=== PATIENT | female | born 1940 | race Caucasian/White ===

== ENCOUNTER → 2020-09-24 14:23 | Outpatient (BNVA) | payer MEDICARE, MEDICAID, SELFPAY | PROVIDERS: Family Provider Nurse Practitioner Family; PCP Nurse Practitioner Family; Visit Provider Nurse Practitioner Family | DX: N39.0 Urinary tract infection, site not specified (principal) | CPT/HCPCS: 80053; 81003; 87077; 87086; 87184 ==

== ENCOUNTER 2020-10-04 13:37 | Outpatient (CLI) | payer MEDICARE, MEDICAID, SELFPAY ==
--- NOTE | 2020-10-08 08:56 | ONC FU_ITS ---
Dr. Amaral Patient Follow-Up Note Patient: JOSSY JACOBSEN Unit #: [id number]: 1940 Dicatated By: Jimenez Amaral M.D.Date of Visit:Oct 04, 2020 Onc Med Follow-up/Prog Note Chief Complaint: Hereditary hemochromatosis. History of Present Illness: This is 79 year-old woman with hereditary hemochromatosis. Her hemochromatosis was initially diagnosed back in the . At that time she began on a phlebotomy program. She was initially seen here by Dr. Hamm on 06/20/2015. 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 Her ferritin at that time was 343 ng/mL with transferrin saturation 48%. Her CT abdomen/pelvis showed significant peripheral vascular disease, but the liver appeared normal. She began weekly phlebotomies with ferritin level subsequently decreasing to 89 ng/mL. She was last seen by Dr. Hamm in February 2016. Ferritin at that time was 109.1 ng/mL with transferrin saturation 44.1%. She was recommended to continue phlebotomies monthly, but thereafter she was lost to follow-up. Her other medical illnesses include hypertension, hyperlipidemia, type II diabetes, peripheral arterial disease, obesity, GERD, and degenerative arthritis. She has chronic lower extremity lymphedema and she has a history of nephrolithiasis. She also has anxiety/depression. Her surgeries include bilateral total knee arthroplasty and right ankle fusion. She had bilateral cataract excisions and glaucoma surgery in 2016. Other surgeries include partial hysterectomy, cholecystectomy, removal of benign lesion from the left breast, and she also has undergone lithotripsy on 2 occasions. She is a nonsmoker. INTERIM HISTORY: She returned for follow-up on 08/11/2018. Her serum iron level at that time was 100 mcg/dL with transferrin saturation 38%. The ferritin level was 64 ng/mL. As of her follow-up visit on 11/10/2018, her serum ferritin was up just slightly to 71.0 ng/mL. Her transferrin saturation, though, had increased to 59.5%, and at that point I did recommend a phlebotomy. On 12/10/2018 she was admitted to the hospital with acute GI bleeding. Her hemoglobin stabilized at 7.3 g, and she did not require transfusion. She had evaluation with EGD and colonoscopy, with no source of GI blood loss identified. I had seen her for a follow-up visit on 03/30/2019. At that point she was still mildly anemic, and I did have her start a multivitamin with iron. As of her follow-up visit in September 2019 her transferrin saturation and ferritin were in target range, and she was recommended to stop the iron supplement and to just continue on observation/expectant management. She is seen for a scheduled visit. She says she has been feeling okay, I guess . She has had some stress/depression, has 1 daughter of heart related issues and another daughter has been put into some type of supervised care for psychiatric issues. She has had a series of urinary tract infections. Her activity remains very limited to her lower extremity weakness. ECOG score is 3. Appetite is variable, but adequate. She has not had fever. She sometimes has sweating at night. She has no shortness of breath, cough, or chest pain. She is taking Nexium for her acid reflux. She reports having loose stools with Metformin. She has frequent urination and occasionally dysuria. She has arthritis pain all over. At times it is pretty intense. She does not complain of headache. She has neuropathy in her feet and to a lesser extent in her hands. Medications: Acetaminophen PM Ex St 1 Tablet (of 500-25 mg) Oral at bedtime, Aspirin 1 Tablet (of 81 mg) Oral daily, Benadryl 1 Tablet (of 25 mg) Oral PRN, Cholecalciferol 1 Tablet (of 10 mcg ) Oral daily, Esomeprazole Magnesium 1 Capsule (of 20 mg) Capsule Delayed Release Oral daily, HumaLOG 10 Units (of 100 Units/mL) Subcutaneous t.i.d., Lantus 30 Units (of 100 Units/mL) Subcutaneous b.i.d., Lipitor 1 Tablet (of 20 mg) Oral daily, Lisinopril 1 (10 mg) Tablet Oral b.i.d., MetFORMIN HCl 1 Tablet (of 500 mg) Oral daily, Nitrofurantoin Macrocrystal 1 Capsule (of 100 mg) Oral t.i.d. for 10 days Allergies: IV CONTRAST DYE Review of Systems: Constitutional - She has very limited activity due to her leg weakness. Appetite is variable, but adequate. She has not had fever. She does have some sweating. ECOG score is 3, ENMT - She has some allergy related sinus symptoms. No mouth sores. No sore throat or difficulty swallowing, Hematologic/Lymphatic - No abnormal bruising or bleeding, Respiratory - No shortness of breath. No cough. No pleuritic pain or hemoptysis, Cardiovascular - No angina pain. No palpitations, Gastrointestinal - No nausea or vomiting. Her acid reflux is managed with Nexium. She has loose stools with Metformin. No blood in the stool or black stools, Genitourinary (F) - She indicates she has had a series of urinary tract infections. She has frequent urination and she occasionally has dysuria. No hematuria.No urgency or incontinence, Musculoskeletal - She has arthritis pain all over. At times it is pretty intense, Integumentary - No skin rash, Neurologic - No headache or dizziness. She has neuropathy in her feet and to a lesser extent in her hands, Psychiatric - She has anxiety/depression. She has difficulty sleeping, as she wakes up at least every 2 hours. Vital Signs: Performed on Oct 04, 2020 14:00 Height - 59.00 in Weight - 222.2 lbs (HIGH) BSA - 1.93 sq.m BMI - 44.88 (HIGH) Temperature - 97.9 F (LOW) Pulse - 56 /min (LOW) Respiration - 22 /min BP - 151/59 mm(hg) (HIGH) O2 Sat - 97 % Pain - 7 Physical Examination: Constitutional - She appears somewhat weak generally, Eyes - Sclerae nonicteric. Conjunctivae clear, ENMT - No lesions noted in the oral cavity, Hematologic/Lymphatic - No cervical, clavicular, or axillary adenopathy, Respiratory - Lungs are clear with good air movement bilaterally, Cardiovascular - Heart rhythm is regular. There is a II/ systolic murmur. There is no gallop or rub noted, Abdomen - Distended. Liver and spleen are not enlarged. There is no abdominal mass or ascites noted and there is no inguinal adenopathy, Extremities - Mild lower extremity edema, Integumentary - She has scattered actinic lesions, Neurologic - No focal neurologic deficits noted. Lab/Imaging: Test performed on Sep 03, 2020 15:08 Hemoglobin A1C 6.7 % Test performed on Sep 03, 2020 15:05 WBC 7.8 10^9/L RBC 4.65 10^12/L HGB 14.7 g/dL HCT 46.1 % MCV 99.1 fl MCH 31.6 pg MCHC 31.9 g/dL RDW 13.1 % Platelet Count 166 10^9/L Test performed on Sep 03, 2020 14:53 Ferritin 33 ng/mL Glucose 132 mg/dL BUN 29 mg/dL Creatinine 1.25 mg/dL Cr Clearance (Est) 59.97 mL/min Sodium 138 mmol/L Potassium 4.7 mmol/L Chloride 106 mmol/L CO2 24.1 mmol/L Calcium 9.1 mg/dL Protein, Total 7.1 g/dL Albumin 3.5 g/dL Bilirubin, Total 0.9 mg/dL Alkaline Phosphatase 57 IU/L AST (SGOT) 19 IU/L ALT (SGPT) 23 IU/L Neutrophils (Gran) 4.41 10^9/L Lymphocytes 2.22 10^9/L Monocytes 0.62 10^9/L Eosinophils 0.43 10^9/L Basophils 0.07 10^9/L Impression: 1. Patient with hereditary hemochromatosis, initially diagnosed in the . 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 2. She has been managed with phlebotomies. She was temporarily lost to follow-up subsequent to her visit with Dr. Hamm in February 2016. 3. She is chronically debilitated and almost completely bed/wheelchair bound. Her other medical illnesses include: 4. Hypertension. 5. Hyperlipidemia. 6. Type II diabetes. 7. Peripheral arterial disease. 8. Obesity. 9. Chronic lower extremity lymphedema. 10. GERD. 11. Degenerative arthritis. 12. She has a history of nephrolithiasis. 13. Anxiety/depression. In November 2018 she was admitted to the hospital with acute GI bleeding. Her hemoglobin stabilized at 7.3 g, and she did not require transfusion. As of her follow-up visit on 03/30/2019 she was still slightly anemic with hypochromic/microcytic red cell indices, consistent with iron deficiency, and I did have her start a multiple vitamin with iron. As of her follow-up visit in September 2019 her transferrin saturation and ferritin were in target range, and I did have her stop the iron supplement. She has since then been followed on observation/expectant management. At this point her ferritin remains in target range, and her overall clinical status appears stable. Plan: I will continue to follow her on observation/expectant management as long as her ferritin level has not increased significantly. I will schedule her to have follow-up laboratory studies with [facility] at 3-month intervals. I will just see her again in 1 year. Signed By: Jimenez Amaral M.D. <<Signature on File>>
== END 2020-10-04 13:38 | disposition home or self-care (01) ==
LOC: ONCMED 13:41
PROVIDERS: PCP Nurse Practitioner Family; Visit Provider Internal Medicine Medical Oncology
DX: E83.110 Hereditary hemochromatosis (principal); I10 Essential (primary) hypertension; E78.5 Hyperlipidemia, unspecified; E11.51 Type 2 diabetes mellitus with diabetic peripheral angiopathy without gangrene; E66.9 Obesity, unspecified; Z68.41 Body mass index [BMI] 40.0-44.9, adult; I89.0 Lymphedema, not elsewhere classified; K21.9 Gastro-esophageal reflux disease without esophagitis; M19.90 Unspecified osteoarthritis, unspecified site; F41.8 Other specified anxiety disorders; Z87.442 Personal history of urinary calculi
CPT/HCPCS: 99214

== ENCOUNTER → 2020-10-08 13:52 | Outpatient (BNVA) | payer MEDICARE, MEDICAID, SELFPAY | PROVIDERS: PCP Nurse Practitioner Family; Visit Provider Nurse Practitioner Family | DX: N39.0 Urinary tract infection, site not specified (principal) | CPT/HCPCS: 81003 ==

== ENCOUNTER 2020-12-07 12:37 | Outpatient (CLI) | payer MEDICARE, MEDICAID, SELFPAY ==
--- NOTE | 2020-12-07 12:57 | XR_ITS ---
WS: [id number] ABDOMEN SERIES Supine and upright views of the abdomen CLINICAL INFORMATION: LOOKING FOR OBSTRUCTION COMPARISON: None. FINDINGS: Cholecystectomy clips. Lumbar scoliosis convex left. Moderate spondylitic changes lumbar sp ine. Vascular calcification. No free air on the upright view. Normal bowel gas pattern. Scattered stool in the colon. No bowel dis tention. No evidence of high-grade obstruction. XR/XR abdomen min 2V [id number] IMPRESSION: 1. No evidence of high-grade small or large bowel obstruction. 2. No free air or fluid levels on the upright view. 3. Lumbar scoliosis convex left.
== END 2020-12-07 12:38 | disposition home or self-care (01) ==
PROVIDERS: PCP Nurse Practitioner Family; Visit Provider Nurse Practitioner Family
DX: R10.30 Lower abdominal pain, unspecified (principal)
CPT/HCPCS: 74019

== ENCOUNTER → 2021-02-06 13:34 | Outpatient (BNVA) | payer MEDICARE, MEDICAID, SELFPAY | PROVIDERS: PCP Nurse Practitioner Family; Visit Provider Nurse Practitioner Family | DX: N39.0 Urinary tract infection, site not specified (principal) | CPT/HCPCS: 81003; 87077; 87086; 87184 ==

== ENCOUNTER 2021-03-06 06:00 | Outpatient (RCR) | payer MEDICARE, MEDICAID, SELFPAY | END 2021-03-29 23:59 | disposition home or self-care (01) | LOC: SOT 06:00 | PROVIDERS: PCP Nurse Practitioner Family; Referring Provider Nurse Practitioner Family; Visit Provider Nurse Practitioner Family | DX: M19.042 Primary osteoarthritis, left hand (principal) | CPT/HCPCS: 97018; 97110; 97167; L3923 ==

== ENCOUNTER 2021-03-27 06:00 | Outpatient (RCR) | payer MEDICARE, MEDICAID, SELFPAY | END 2021-03-29 23:59 | disposition home or self-care (01) | LOC: SPT 06:00 | PROVIDERS: PCP Nurse Practitioner Family; Referring Provider Nurse Practitioner Family; Visit Provider Nurse Practitioner Family | DX: M19.012 Primary osteoarthritis, left shoulder (principal) | CPT/HCPCS: 97110; 97162 ==

== ENCOUNTER 2021-03-30 06:00 | Outpatient (RCR) | payer MEDICARE, MEDICAID, SELFPAY | END 2021-04-03 23:00 | disposition home or self-care (01) | LOC: SOT 06:00 | PROVIDERS: PCP Nurse Practitioner Family; Referring Provider Nurse Practitioner Family; Visit Provider Nurse Practitioner Family | DX: M19.042 Primary osteoarthritis, left hand (principal) | CPT/HCPCS: 97110 ==

== ENCOUNTER 2021-03-30 06:00 | Outpatient (RCR) | payer MEDICARE, MEDICAID, SELFPAY | END 2021-04-29 23:59 | disposition home or self-care (01) | LOC: SPT 06:00 | PROVIDERS: PCP Nurse Practitioner Family; Referring Provider Nurse Practitioner Family; Visit Provider Nurse Practitioner Family | DX: M19.012 Primary osteoarthritis, left shoulder (principal) | CPT/HCPCS: 97110 ==

== ENCOUNTER 2021-05-14 17:14 | Emergency (ER) | payer MEDICARE, MEDICAID, SELFPAY ==
--- NOTE | 2021-05-14 17:15 | XRR_ITS ---
PROCEDURE INFORMATION: Exam: XR Left Foot Exam date and time: 05/14/2021 5:15 PM Age: 80 years old Clinical indication: Injury or trauma; Other: Dropped board on foot; Blunt trauma and swelling (edema); Injury date: 05/11/2021; Patient HX: Left foot injury/pain/swelling/bruising, HX diabeties TECHNIQUE: Imaging protocol: XR Left foot. Views: 3 or more views. COMPARISON: No relevant prior studies available. FINDINGS: Bones/joints: Diffuse demineralization of the bones. Degenerative changes of the ankle and intertarsal joints. Large calcaneus spur. Soft tissues: Diffuse soft tissue calcifications in the lower leg. Soft tissue swelling in the dorsal foot. Vasculature: Arterial calcifications. XR/XR foot LT min 3V* [id number] IMPRESSION: 1. No fracture identified.
[2021-05-14 18:23] VITALS: BP 173/107; PULSE 76; RESP 20; TEMP 36.8; O2SAT 94; BMI 43.0
--- NOTE | 2021-05-14 18:59 | W.ED.LOWEXIN ---
HPI - Extremity Injury (Lower) General: Chief Complaint: Extremity Injury, Lower Stated Complaint: LEFT FOOT INJURY Time Seen by Provider: 05/14/21 18:57 Source: patient Mode of arrival: wheelchair Limitations: no limitations History of Present Illness: HPI Narrative: Patient is a 80-year-old female who presents to ED today for evaluation of a crush injury to her left foot. Patient tells me 3 days ago she dropped a wooden shelf on the dorsal aspect of her left foot. No breaks in the skin. She has noticed significant bruising since the event. Tetanus is UTD. Patient uses motorized wheelchair so doesn't ambulate much anyway-she has been able to fulfill ADLs with foot injury. complaint: foot injury Onset (ago): hour(s) Injury: Left: foot Type of Injury: blunt Place: home Severity: moderate Relieving factors: immobilization Exacerbating factors: weight bearing, movement and palpation Context: direct blow Associated symptoms: Reports inability to bear weight Other symptoms: none Review of Systems Musc: Reports: extremity pain (L foot); Denies: extremity swelling, joint pain, joint swelling, joint redness or joint warmth Skin/Breast: Reports: other (bruising to L foot) Neuro: Denies: numbness in extremities or sensory changes Physical Exam Const: COMMON NORMALS: no acute distress, patient oriented x3, no limitations and alert NUTRITIONAL APPEARANCE: obese ORIENTATION/CONSCIOUSNESS: Yes awake, Yes oriented to person, Yes oriented to place and Yes oriented to time Extremity: GENERAL: Yes normal exam except as noted OTHER: bilateral LE chronic lymphedema; L foot with ecchymosis throughout dorsal and medial aspect with bruising extending into toes; cap refill brisk; palpable DP/PT pulses; normal temp when compared to R; no redness/swelling/signs to suggest cellulitis; there is a small abrasion to dorsal aspect Neuro: COMMON NORMALS: patient oriented x3, moves all extremities, no focal motor deficits and no sensory deficits noted SENSORIUM/ORIENTATION: Yes alert, Yes oriented to person, Yes oriented to place and Yes oriented to time Skin: NARRATIVE SKIN EXAM: see extremity assessment for pertinent skin findings Course Vital Signs: Vital signs: Vital Signs Temperature 98.3 F 05/14/21 18:23 Pulse Rate 78 05/14/21 19:11 Respiratory Rate 20 H 05/14/21 18:23 Blood Pressure 173/107 05/14/21 18:23 Pulse Oximetry 94 05/14/21 18:23 MDM - Extremity Injury (Lower) MDM Narrative: Medical decision making narrative: Patient with crush injury/contusion to left foot. XR negative. No signs of infection. Extremity NV intact. Recommend ice/elevation and follow up with PCP in 1-2 weeks if symptoms persist. Imaging Data^: XR L foot: Radiologist's impression: [address] [address] XRay Report Signed Patient: Mary Arias Unit #: [id number] : 1940 Age/Sex: 80 / F ADM Date: 05/14/21 Loc: ER Room/Bed: Attending Dr: Ordering Provider/Ordering MD: Alicia Guillen Date of Service: 05/14/21 Procedure(s): XR foot LT min 3V* [id number] Accession Number(s): [id number] Report Number: [id number] PROCEDURE INFORMATION: Exam: XR Left Foot Exam date and time: 05/14/2021 5:15 PM Age: 80 years old Clinical indication: Injury or trauma; Other: Dropped board on foot; Blunt trauma and swelling (edema); Injury date: 05/11/2021; Patient HX: Left foot injury/pain/swelling/bruising, HX diabeties TECHNIQUE: Imaging protocol: XR Left foot. Views: 3 or more views. COMPARISON: No relevant prior studies available. FINDINGS: Bones/joints: Diffuse demineralization of the bones. Degenerative changes of the ankle and intertarsal joints. Large calcaneus spur. Soft tissues: Diffuse soft tissue calcifications in the lower leg. Soft tissue swelling in the dorsal foot. Vasculature: Arterial calcifications. XR/XR foot LT min 3V* [id number] IMPRESSION: 1. No fracture identified. Dictated By: Jimmy Taylor Signed By: Jimmy Taylor Signed Date/Time: 05/14/211828 DD/ 27 Discharge Plan Discharge Patient Disposition: Home Clinical Impression: Contusion of left foot Qualifiers: Encounter type: initial encounter Qualified Code(s): S90.32XA - Contusion of left foot, initial encounter Condition: Stable Discharge Orders: Discharge ED (Routine); Ordered 05/14/21 Ordered By: Alicia Guillen Patient Instructions: Contusion, RICE Therapy (ED) Activity Restrictions/Additional Instructions: As we discussed please elevate extremity. You may also apply ice for 15 -20 mins every other hour. Follow up with primary care in 1-2 weeks if pain persists. Coding Level of Care Code ED Getter Welder for Rk Gonzalez
[2021-05-14 19:11] VITALS: PULSE 78
[2021-05-14 19:40] VITALS: RESP 18
== END 2021-05-14 19:41 | disposition home or self-care (01) ==
PROVIDERS: Emergency Provider Physician Assistant
DX: S90.32XA Contusion of left foot, initial encounter (principal); W20.8XXA Other cause of strike by thrown, projected or falling object, initial encounter
CPT/HCPCS: 73630; 99281

== ENCOUNTER 2021-09-30 13:37 | Outpatient (CLI) | payer MEDICARE, MEDICAID, SELFPAY ==
--- NOTE | 2021-09-30 13:30 | USCV_ITS ---
Mary Magaña Age: 80 Gender: F : 1940 Exam Date: 09/30/2021 13:56 Ordering Phys: Cole Tenorio M.D ([email or web address]) Technologist: Nikita Briones [place]am [place] [facility] [place]ication: MURMUR BP: 130 / 80 HR: 62 Rhythm: Sinus Technical Quality: Adequate MEASUREMENTS (Male / Female) Normal Values 2D ECHO LV Diastolic Diameter PLAX 3.3 cm 4.2 - 5.9 / 3.9 - 5.3 cm LV Systolic Diameter PLAX 2.2 cm IVS Diastolic Thickness 1.4 cm 0.6 - 1.0 / 0.6 - 0.9 cm IVS Systolic Thickness 1.3 cm LVPW Diastolic Thickness 1.2 cm 0.6 - 1.0 / 0.6 - 0.9 cm LVPW Systolic Thickness 1.4 cm LVOT Diameter 2.0 cm LV Ejection Fraction 2D Teich 62.1 % LV Ejection Fraction MOD 2C 58.0 % LV Ejection Fraction 2C AL 57.6 % LA Diameter 3.3 cm LA Width 3.3 cm LA Height 5.9 cm RA Width 4.5 cm RA Height 3.5 cm M-MODE LV Diastolic Diameter MM 4.7 cm 4.2 - 5.9 / 3.9 - 5.3 cm LV Systolic Diameter MM 2.5 cm LV Ejection Fraction MM Teich 76.9 % IVS Diastolic Thickness MM 0.8 cm 0.6 - 1.0 / 0.6 - 0.9 cm IVS Systolic Thickness MM 1.4 cm LVPW Diastolic Thickness MM 1.1 cm 0.6 - 1.0 / 0.6 - 0.9 cm LVPW Systolic Thickness MM 1.7 cm RV Diastolic Diameter MM 1.7 cm DOPPLER AV Peak Velocity 269.7 cm/s LVOT Peak Velocity 110.0 cm/s AV Area Cont Eq vti 1.3 cm squared AV Area Cont Eq pk 1.2 cm squared MV Area PHT 2.9 cm squared Mitral E to A Ratio 0.7 MV E' Velocity 65.0 cm/s TR Peak Velocity 236.0 cm/s TR Peak Gradient 22.3 mmHg TV Peak E Velocity 88.0 cm/s Right Atrial Pressure 3.0 mmHg Pulmonary Artery Systolic Pressu 25.3 mmHg FINDINGS Left Ventricle Normal left ventricular size. LV systolic function is normal with EF of 55 to 60%. No regional wall motion abnormalities. Grade 1 diastolic dysfunction Right Ventricle The right ventricle is normal in size and function. Right Atrium The right atrium is normal in size. Left Atrium The left atrium is normal in size. Mitral Valve Moderate to severe mitral annular calcification without significant stenosis or prolapse. There is mild mitral regurgitation. Aortic Valve Aortic valve is moderately thickened and calcified. Mild aortic stenosis is noted with aortic valve area of 1.27 cm squared and mean gradient across the valve of 14 mmHg. There is mild aortic regurgitation. Tricuspid Valve Structurally normal tricuspid valve without significant stenosis. Mild tricuspid regurgitation. Normal RVSP Pulmonic Valve Not well-visualized Pericardium Normal pericardium without effusion. Aorta Normal ascending aorta dimension. CONCLUSIONS This is technically limited quality echocardiogram because of poor ultrasonic windows. LV systolic function is normal with EF of 55 to 60%. Grade 1 diastolic dysfunction is seen. Mild mitral regurgitation is present. Aortic valve is moderately thickened and calcified. Mild aortic stenosis is present with aortic valve area of 1.27 cm squared and mean gradient of 14 mmHg. Mild aortic regurgitation. Mild tricuspid regurgitation is seen. Compared to prior echocardiogram from 05/29/2017, patient now has mild aortic regurgitation, otherwise unchanged Cole Tenorio MD (Electronically Signed) Final Date: 05 October 2021 20:32 S
== END 2021-09-30 13:38 | disposition home or self-care (01) ==
PROVIDERS: PCP Nurse Practitioner Family; Visit Provider Internal Medicine
DX: R01.1 Cardiac murmur, unspecified (principal); I34.0 Nonrheumatic mitral (valve) insufficiency; I35.0 Nonrheumatic aortic (valve) stenosis
CPT/HCPCS: 93306

== ENCOUNTER 2021-10-07 15:00 | Outpatient (CLI) | payer MEDICARE, MEDICAID, SELFPAY ==
[2021-10-07 16:34] LABS: Basophils # 0.1 10^3/uL (0.0-0.1); Basophils % 0.8 %; Eosinophils # 0.3 10^3/uL (0.0-0.8); Eosinophils % 3.1 %; Hematocrit 43.6 % (37.0-47.0); Lymphocytes # 2.2 10^3/uL (0.8-4.8); Lymphocytes % 23.5 %; Mean Corpuscular HGB Conc 32.1 g/dL (30.0-36.0); Mean Corpuscular Hemoglobin 32.1 pg (28.0-34.0); Mean Platelet Volume 12.5 fL (7.4-10.4); Monocytes # 0.8 10^3/uL (0.2-0.9); Neutrophils # 5.98 10^3/uL (1.8-7.7); Neutrophils % 64.2 %; Nucleated Red Blood Cells % 0 %; Platelet Count 179 10^3/cmm (130-400); Red Blood Count 4.36 10^6/uL (4.1-5.3); Red Cell Distribution Width 12.6 % (12.1-15.1); White Blood Count 9.3 10^3/uL (4.0-10.0)
[2021-10-07 16:54] LABS: Alanine Aminotransferase 16 U/L (0-33); Albumin Level 4.1 g/dL (3.5-5.2); Alkaline Phosphatase 73 IU/L (35-105); Aspartate Amino Transferase 15 U/L (0-32); Blood Urea Nitrogen 31 mg/dL (8-23); Calcium 9.4 mg/dL (8.5-10.5); Carbon Dioxide 20 mmol/L (22-29); Chloride 102 mmol/L (98-107); Ferritin 148 ng/mL (15-150); Globulin 2.7 g/dL (1.3-4.6); Glucose 200 mg/dL (65-115); Iron 143 ug/dL (37-145); Osmolality Calculated 296 mOsm/kg (285-295); Percent Saturation 61.6 % (20-50); Sodium 137 mmol/L (136-145); Total Bilirubin 0.8 mg/dL (0.15-1.2); Total Iron Binding Capacity 232 mcg/dl; Total Protein 6.8 g/dL (6.6-8.7); Unsaturated Iron Binding 89 ug/dL (112-347)
[2021-10-07 17:08] LABS: Anion Gap 20.6 (5-19); Potassium 5.6 mmol/L (3.5-5.1)
[2021-10-07 17:28] LABS: Estmated Average Glucose 157; Hemoglobin A1C 7.1 % (4.0-6.0)
== END 2021-10-07 15:01 | disposition home or self-care (01) ==
LOC: ONCMED 15:08
PROVIDERS: PCP Nurse Practitioner Family; Visit Provider Internal Medicine Medical Oncology
DX: E83.110 Hereditary hemochromatosis (principal); D50.0 Iron deficiency anemia secondary to blood loss (chronic); I10 Essential (primary) hypertension; E78.5 Hyperlipidemia, unspecified; E11.59 Type 2 diabetes mellitus with other circulatory complications; I73.9 Peripheral vascular disease, unspecified; E66.9 Obesity, unspecified; I89.0 Lymphedema, not elsewhere classified; K21.9 Gastro-esophageal reflux disease without esophagitis; M19.90 Unspecified osteoarthritis, unspecified site; H40.9 Unspecified glaucoma; F41.9 Anxiety disorder, unspecified; F32.9 Major depressive disorder, single episode, unspecified; Z79.899 Other long term (current) drug therapy
CPT/HCPCS: 36415; 80053; 82728; 83036; 83540; 83550; 85025; 90471; 90686; 99214

== ENCOUNTER 2022-01-08 10:43 | Outpatient (CLI) | payer MEDICARE, MEDICAID, SELFPAY | END 2022-01-08 10:44 | disposition home or self-care (01) | PROVIDERS: PCP Nurse Practitioner Family; Visit Provider Internal Medicine Medical Oncology | DX: E83.119 Hemochromatosis, unspecified (principal) | CPT/HCPCS: 99195 ==

== ENCOUNTER 2022-05-28 11:59 | Oncology outpatient (recurring) (ONCR) | payer MEDICARE, MEDICAID, SELFPAY ==
[2022-05-28 13:03] LABS: Basophils # 0.1 10^3/uL (0.0-0.1); Basophils % 0.7 %; Eosinophils # 0.4 10^3/uL (0.0-0.8); Eosinophils % 5.2 %; Hematocrit 39.9 % (37.0-47.0); Hemoglobin 12.8 g/dL (11.5-15.3); Lymphocytes # 2.1 10^3/uL (0.8-4.8); Lymphocytes % 29.1 %; Mean Corpuscular HGB Conc 32.1 g/dL (30.0-36.0); Mean Corpuscular Hemoglobin 31.8 pg (28.0-34.0); Mean Corpuscular Volume 99.3 fl (81-99); Mean Platelet Volume 13.1 fL (7.4-10.4); Monocytes # 0.6 10^3/uL (0.2-0.9); Monocytes % 8.8 %; Neutrophils # 3.94 10^3/uL (1.8-7.7); Neutrophils % 55.6 %; Nucleated Red Blood Cells % 0 %; Platelet Count 152 10^3/cmm (130-400); Red Blood Count 4.02 10^6/uL (4.1-5.3); Red Cell Distribution Width 12.8 % (12.1-15.1); White Blood Count 7.1 10^3/uL (4.0-10.0)
[2022-05-28 13:20] LABS: Alanine Aminotransferase 17 U/L (0-33); Albumin Level 3.9 g/dL (3.5-5.2); Alkaline Phosphatase 72 IU/L (35-105); Anion Gap 13.6 (5-19); Aspartate Amino Transferase 17 U/L (0-32); Blood Urea Nitrogen 31 mg/dL (8-23); Carbon Dioxide 23 mmol/L (22-29); Chloride 106 mmol/L (98-107); Globulin 2.6 g/dL (1.3-4.6); Glucose 159 mg/dL (65-115); Osmolality Calculated 296 mOsm/kg (285-295); Potassium 4.6 mmol/L (3.5-5.1); Slide Review Slide Review Perform; Sodium 138 mmol/L (136-145); Total Bilirubin 0.5 mg/dL (0.15-1.2); Total Protein 6.5 g/dL (6.6-8.7)
[2022-05-28 13:42] LABS: Ferritin 131 ng/mL (15-150); Iron 103 ug/dL (37-145); Percent Saturation 58.5 % (20-50); Total Iron Binding Capacity 176 mcg/dl; Unsaturated Iron Binding 73 ug/dL (112-347)
== END 2022-05-29 23:59 | disposition home or self-care (01) ==
PROVIDERS: PCP Nurse Practitioner Family; Referring Provider Family Medicine; Visit Provider Internal Medicine Medical Oncology
DX: E83.110 Hereditary hemochromatosis (principal)
CPT/HCPCS: 80053; 82728; 83540; 83550; 85025; 99195; 99214

== ENCOUNTER 2022-10-05 17:58 | Emergency (ER) | payer MEDICARE, MEDICAID, SELFPAY ==
[2022-10-05 18:05] VITALS: BP 137/107; PULSE 71; RESP 15; TEMP 36.9; O2SAT 95; BMI 44.5
--- NOTE | 2022-10-05 18:41 | CTR_ITS ---
PROCEDURE INFORMATION: Exam: CT Abdomen And Pelvis Without Contrast Exam date and time: 10/05/2022 7:49 PM Age: 81 years old Clinical indication: Abdominal pain; Additional info: R back/flank pain TECHNIQUE: Imaging protocol: Computed tomography of the abdomen and pelvis without contrast. Radiation optimization: All CT scans at this facility use at least one of these dose optimization techniques: automated exposure control; mA and/or kV adjustment per patient size (includes targeted exams where dose is matched to clinical indication); or iterative reconstruction. COMPARISON: CT abdomen pelvis wo con [id number] 12/10/2018 1:25 PM RADIATION DOSE METRICS: Total DLP (mGy-cm): 934.37 FINDINGS: Heart: Cardiomegaly. Diaphragm: Small hiatal hernia. Liver: Normal. No mass. Gallbladder and bile ducts: Cholecystectomy. Pancreas: Normal. No ductal dilation. Spleen: Normal. No splenomegaly. Adrenal glands: Normal. No mass. Kidneys and ureters: Possible minimal right hydronephrosis and hydroureter without obstructing lesion may reflect sequelae of a recently passed calyceal stone. Stomach and bowel: Diverticulosis without diverticulitis. Appendix: No evidence of appendicitis. Intraperitoneal space: Unremarkable. No free air. No significant fluid collection. Vasculature: Unremarkable. No abdominal aortic aneurysm. Lymph nodes: Unremarkable. No enlarged lymph nodes. Urinary bladder: Unremarkable as visualized. Reproductive: Unremarkable as visualized. Bones/joints: Unremarkable. No acute fracture. Soft tissues: Unremarkable. CT/CT kidney stone [id number] IMPRESSION: 1. Possible minimal right hydronephrosis and hydroureter without obstructing lesion may reflect sequelae of a recently passed calyceal stone. 2. Cardiomegaly. 3. Cholecystectomy. 4. Diverticulosis without diverticulitis. 5. Small hiatal hernia.
[2022-10-05 18:50] LABS: Basophils # 0.1 10^3/uL (0.0-0.1); Basophils % 0.8 %; Eosinophils # 0.3 10^3/uL (0.0-0.8); Eosinophils % 4.3 %; Hematocrit 43.4 % (37.0-47.0); Hemoglobin 13.6 g/dL (11.5-15.3); Lymphocytes # 1.8 10^3/uL (0.8-4.8); Lymphocytes % 24.2 %; Mean Corpuscular HGB Conc 31.3 g/dL (30.0-36.0); Mean Corpuscular Hemoglobin 30.8 pg (28.0-34.0); Mean Corpuscular Volume 98.4 fl (81-99); Monocytes # 0.5 10^3/uL (0.2-0.9); Monocytes % 7.3 %; Neutrophils # 4.57 10^3/uL (1.8-7.7); Neutrophils % 62.7 %; Nucleated Red Blood Cells % 0 %; Platelet Count 156 10^3/cmm (130-400); Red Blood Count 4.41 10^6/uL (4.1-5.3); Red Cell Distribution Width 12.3 % (12.1-15.1); White Blood Count 7.3 10^3/uL (4.0-10.0)
[2022-10-05 19:05] LABS: Alanine Aminotransferase 15 U/L (0-33); Albumin Level 4.3 g/dL (3.5-5.2); Alkaline Phosphatase 79 U/L (35-105); Anion Gap 15.6 (5-19); Aspartate Amino Transferase 16 U/L (0-32); Blood Urea Nitrogen 28 mg/dL (8-23); C Reactive Protein 7.3 mg/L (0.0-4.9); Calcium 9.6 mg/dL (8.5-10.5); Carbon Dioxide 23 mmol/L (22-29); Chloride 102 mmol/L (98-107); Globulin 2.6 g/dL (1.3-4.6); Glucose 200 mg/dL (65-115); Lipase 101 U/L (13-60); Osmolality Calculated 293 mOsm/kg (285-295); Potassium 4.6 mmol/L (3.5-5.1); Sodium 136 mmol/L (136-145); Total Bilirubin 0.7 mg/dL (0.15-1.2); Total Protein 6.9 g/dL (6.6-8.7)
[2022-10-05] MEDS: sodium chloride 0.9% 1,000 ML 999 ML IV (19:08)
[2022-10-05 19:10] VITALS: BP 137/107; PULSE 71; RESP 15; TEMP 36.9; O2SAT 95
--- NOTE | 2022-10-05 19:26 | W.ED.BACK ---
HPI - Back Pain/Injury General: Chief Complaint: Back Pain/Injury Stated Complaint: RIGHT FLANK PAIN Time Seen by Provider: 10/05/22 18:14 Source: patient History of Present Illness: 81-year-old female with a history of kidney stones. She has had right-sided back and flank pain radiating into her abdomen for the past 24 hours or so. It worsened today. She had less appetite today. No vomiting or fever. No pain with urination she states her urine does not look dark. MD elicited complaint: back pain Pertinent past history: kidney stones Onset (ago): hour(s) (24) Timing: intermittent and progressively worsening Severity: moderate Location: right flank Radiation: abdomen Exacerbating factors: none Relieving factors: none Associated symptoms: Reports abdominal pain, chills, fatigue and nausea; Deny difficulty walking, fever(s), myalgias or vomiting Review of Systems Const: Reports: chills and fatigue; Denies: fever(s) ENMT: Denies: throat pain Card: Denies: chest pain or palpitations Resp: Denies: dyspnea or productive cough GI: Reports: abdominal pain and nausea; Denies: vomiting : Reports: flank pain Musc: Reports: back pain; Denies: neck pain Skin/Breast: Reports: rash Neuro: Denies: difficulty walking PFSH ED PFSH: Medical History Atrial fibrillation Chronic acquired lymphedema Chronic kidney disease Degenerative arthritis GERD (gastroesophageal reflux disease) Glaucoma Hereditary hemochromatosis HTN (hypertension) Hyperlipidemia Nephrolithiasis Peripheral arterial disease Recurrent UTI Type 2 diabetes mellitus Surgical History H/O lithotripsy x 2 History of ankle surgery Right ankle fusion History of bilateral knee replacement History of carpal tunnel surgery of right wrist History of colonoscopy (2019) History of esophagogastroduodenoscopy (2019) Hx laparoscopic cholecystectomy Hx of cataract surgery Hx of hysterectomy Hx of left breast biopsy Family History Mother Alzheimer disease Sister Cancer Father Alcohol abuse Daughter CAD (coronary artery disease) Social History Smoking and tobacco status: never smoked Alcohol intake: never Marital status: / Current occupational status: retired and disabled Female Reproductive History: Spontaneous abortions: No Physical Exam Const: COMMON NORMALS: no acute distress HENMT: COMMON NORMALS: normocephalic, atraumatic and Normal external nose present HEAD & SCALP: normocephalic and atraumatic FACE & SINUS: normal facial exam and face symmetric NOSE: Normal external nose present MOUTH: Normal oral and palatal mucosa present Eye: COMMON NORMALS: Equal, round and reactive pupils present and EOMs intact bilaterally PUPIL: Yes Equal, round and reactive pupils present Neck/C-Spine: GENERAL: Yes trachea midline Chest: CHEST: Yes Symmetrical chest wall rise Resp: COMMON NORMALS: normal respiratory effort, No use of accessory muscles and clear to auscultation bilaterally AUSCULTATION: clear to auscultation bilaterally Cardio: COMMON NORMALS: regular rate and regular rhythm RATE: regular rate RHYTHM: regular rhythm GI: COMMON NORMALS: Normal to inspection, nondistended, normoactive bowel sounds present and Soft to palpation PALPATION: Yes Soft to palpation and Yes Tenderness to palpation present (GI) (suprapubic) Details: LLQ and RLQ : BLADDER/KIDNEY EXAM: Yes CVA tenderness (mild) on the right Back/Pelvis: GENERAL BACK: Yes CVA tenderness (mild) Neuro: CLARY COMA SCALE: document GCS findings [place] coma scale eye opening: Spontaneous [place] coma scale verbal response: Orientated [place] coma scale motor response: Obey commands [place] coma scale total score: 15 Course Vital Signs: Vital signs: Vital Signs Temperature 98.5 F 10/05/22 19:10 Pulse Rate 69 10/05/22 21:47 Respiratory Rate 18 10/05/22 21:47 Blood Pressure 139/64 10/05/22 21:47 Pulse Oximetry 94 10/05/22 21:47 Oxygen Delivery Me thod 10/05/22 19:10 MDM - Back Pain/Injury Medical Decision Making Patient is much more comfortable now. CBC is normal. BMP shows an elevation in BUN and creatinine. She is received a liter of fluid here. Other laboratories not remarkable. Awaiting a urinalysis. CT shows minimal right hydronephrosis and hydroureter without obstructing stone, as it is likely recently passed. Will await urine, then allow discharge. Urinalysis is contaminated, but shows greater than 100 whites. She will be treated for this. Last culture shows a pansensitive E. coli. She will be prescribed Keflex. Her lipase level was elevated at 100, but pancreas normal by CT. She does not have the symptoms associated with pacreatitis. Labs : 10/05/22 18:09 10/05/22 18:09 Radiology Impressions Abdomen/Pelvis CT 10/05/22 18:41 IMPRESSION: 1. Possible minimal right hydronephrosis and hydroureter without obstructing lesion may reflect sequelae of a recently passed calyceal stone. 2. Cardiomegaly. 3. Cholecystectomy. 4. Diverticulosis without diverticulitis. 5. Small hiatal hernia. Laboratory Results WBC 7.3 10^3/uL (4.0-10.0) 10/05/22 18:09 RBC 4.41 10^6/uL (4.1-5.3) 10/05/22 18:09 Hgb 13.6 g/dL (11.5-15.3) 10/05/22 18:09 Hct 43.4 % (37.0-47.0) 10/05/22 18:09 MCV 98.4 fl (81-99) 10/05/22 18:09 MCH 30.8 pg (28.0-34.0) 10/05/22 18:09 MCHC 31.3 g/dL (30.0-36.0) 10/05/22 18:09 RDW 12.3 % (12.1-15.1) 10/05/22 18:09 Plt Count 156 10^3/cmm (130-400) 10/05/22 18:09 MPV 13.0 fL (7.4-10.4) H 10/05/22 18:09 Neut % (Auto) 62.7 % 10/05/22 18:09 Lymph % (Auto) 24.2 % 10/05/22 18:09 [place] % (Auto) 7.3 % 10/05/22 18:09 Eos % (Auto) 4.3 % 10/05/22 18:09 Baso % (Auto) 0.8 % 10/05/22 18:09 Neut # (Auto) 4.57 10^3/uL (1.8-7.7) 10/05/22 18:09 Lymph # (Auto) 1.8 10^3/uL (0.8-4.8) 10/05/22 18:09 [place] # (Auto) 0.5 10^3/uL (0.2-0.9) 10/05/22 18:09 Eos # (Auto) 0.3 10^3/uL (0.0-0.8) 10/05/22 18:09 Baso # (Auto) 0.1 10^3/uL (0.0-0.1) 10/05/22 18:09 Nucleated RBC % (auto) 0 % 10/05/22 18:09 Nucleated RBCs # 0.0 /100WBC 10/05/22 18:09 Sodium 136 mmol/L (136-145) 10/05/22 18:09 Potassium 4.6 mmol/L (3.5-5.1) 10/05/22 18:09 Chloride 102 mmol/L (98-107) 10/05/22 18:09 Carbon Dioxide 23 mmol/L (22-29) 10/05/22 18:09 Anion Gap 15.6 (5-19) 10/05/22 18:09 BUN 28 mg/dL (8-23) H 10/05/22 18:09 Creatinine 1.0 mg/dL (0.5-0.9) H 10/05/22 18:09 GFR Calculation Not Reportable 10/05/22 18:09 Glucose 200 mg/dL (65-115) H 10/05/22 18:09 Calculated Osmolality 293 mOsm/kg (285-295) 10/05/22 18:09 Lactate 1.8 mmol/L (0.5-2.2) 10/05/22 19:04 Calcium 9.6 mg/dL (8.5-10.5) 10/05/22 18:09 Total Bilirubin 0.7 mg/dL (0.15-1.2) 10/05/22 18:09 AST 16 U/L (0-32) 10/05/22 18:09 ALT 15 U/L (0-33) 10/05/22 18:09 Alkaline Phosphatase 79 U/L (35-105) 10/05/22 18:09 C-Reactive Protein 7.3 mg/L (0.0-4.9) H 10/05/22 18:09 Total Protein 6.9 g/dL (6.6-8.7) 10/05/22 18:09 Albumin 4.3 g/dL (3.5-5.2) 10/05/22 18:09 Globulin 2.6 g/dL (1.3-4.6) 10/05/22 18:09 Lipase 101 U/L (13-60) H 10/05/22 18:09 Urine Color Yellow (Yellow) 10/05/22 20:00 Urine Appearance Hazy (CLEAR) A 10/05/22 20:00 Urine pH 5 (5-7) 10/05/22 20:00 Ur Specific [place] 1.015 (1.005-1.030) 10/05/22 20:00 Urine Protein Neg (Negative) 10/05/22 20:00 Urine Glucose (UA) Norm (Normal) 10/05/22 20:00 Urine Ketones Negative (Negative) 10/05/22 20:00 Urine Blood Neg (Negative) 10/05/22 20:00 Urine Nitrate Negative (Negative) 10/05/22 20:00 Urine Bilirubin Neg (Negative) 10/05/22 20:00 Urine Urobilinogen Norm mg/dL (Negative) 10/05/22 20:00 Ur Leukocyte Esterase 2+ (Negative) H 10/05/22 20:00 Urine RBC None /hpf (0-2) 10/05/22 20:00 Urine WBC >100 /hpf (0-5) H 10/05/22 20:00 Ur Squamous Epith Cells 25-40 /hpf (0-5) H 10/05/22 20:00 Amorphous Sediment Not Reportable 10/05/22 20:00 Urine Bacteria 4+ /hpf (NONE) H 10/05/22 20:00 Discharge Plan Discharge Patient Disposition: Home Clinical Impression: Recurrent UTI Condition: Stable Prescriptions: New cephalexin 500 mg capsule 500 mg PO Q6H 7 Days Qty: 28 0RF No Action Lantus U-100 Insulin 100 unit/mL solution 30 unit SUBCUT BID insulin lispro [Humalog KwikPen Insulin] 100 unit/mL insulin pen 10 unit SUBCUT TID lisinopril 10 mg tablet 10 mg PO DAILY atorvastatin [Lipitor] 20 mg tablet 20 mg PO DAILY aspirin [Adult Aspirin Regimen] 81 mg tablet,delayed release (DR/EC) 81 mg PO DAILY cholecalciferol (vitamin D3) 10 mcg (400 unit) capsule 10 mcg PO DAILY esomeprazole magnesium [Nexium] 20 mg capsule,delayed release(DR/EC) 20 mg PO DAILY acetaminophen [Tylenol] 325 mg tablet 325 mg PO QID PRN [place] 0.01 % drops 1 drp ophthalmic (eye) DAILY omega-3 fatty acids 1,000 mg capsule 1,000 mg PO BID methenamine hippurate 1 gram tablet 1 g PO BID Qty: 180 1RF Rx Instructions: Take 1000 mg of vitamin C with each dose of methenamine nitrofurantoin monohyd/m-cryst 100 mg capsule See Rx Instructions .ROUTE .COMPLEX Qty: 42 0RF Dose Instruction: TAKE 1 CAPSULE BY MOUTH TWICE A DAY MUST ADMINISTER WITH A MEAL/FOOD Rx Instructions: TAKE 1 CAPSULE BY MOUTH TWICE A DAY MUST ADMINISTER WITH A MEAL/FOOD Discharge Orders: Discharge ED (Routine); Ordered 10/05/22 Ordered By: Ezequiel Donald Referrals: Nehemias Cotto DO [Primary Care Provider] - 1-3 days Patient Instructions: Urinary Tract Infection in Women (ED) Activity Restrictions/Additional Instructions: Antibiotics as directed. Stay hydrated. Return for fever despite 2-3 doses of antibiotics, worsening pain, vomiting liquids or medications, mental status changes, any other concerning symptoms. Coding Level of Care Code ED Executive Vice President for Rk Fwd Exam Comprehensive
[2022-10-05 19:53] LABS: Lactate (Lactic Acid level) 1.8 mmol/L (0.5-2.2)
[2022-10-05 20:20] VITALS: BP 170/82; PULSE 67; RESP 16; O2SAT 98
[2022-10-05 20:52] LABS: Add Urine Microscopic? YES; Bilirubin Urine Neg (Negative); Blood Urine Neg (Negative); Glucose Urine UA Norm (Normal); Ketones Urine Negative (Negative); Leukocyte Esterase Urine 2+ (Negative); Nitrate Urine Negative (Negative); Protein Urine Neg (Negative); Specific Gravity, Urine 1.015 (1.005-1.030); Urine Appearance Hazy (CLEAR); Urine Color Yellow (Yellow); Urobilinogen Urine Norm (Negative); pH Urine 5 (5-7)
[2022-10-05 20:53] LABS: Bacteria Urine 4+ /hpf; Squamous Epithelial Cell Urine 25-40 /hpf (0-5); WBC Urine >100 /hpf (0-5)
[2022-10-05 20:54] LABS: Add Urine Culture? No
[2022-10-05] MEDS: cefTRIAXone 1,000 MG in sodium chloride 0.9% (plus) 50 ML 100 MG IV (21:05)
[2022-10-05 21:18] VITALS: BP 118/59; PULSE 57; RESP 18; O2SAT 95
[2022-10-05 21:47] VITALS: BP 139/64; PULSE 69; RESP 18; O2SAT 94
== END 2022-10-05 22:09 | disposition home or self-care (01) ==
PROVIDERS: Emergency Provider Emergency Medicine; PCP Family Medicine
DX: N39.0 Urinary tract infection, site not specified (principal); Z87.440 Personal history of urinary (tract) infections; N13.30 Unspecified hydronephrosis; N13.4 Hydroureter
CPT/HCPCS: 74176; 80053; 81001; 83605; 83690; 85025; 86140; 96365; 99285; J0696; J7030

== ENCOUNTER 2022-10-10 18:38 | Emergency (ER) | payer MEDICARE, MEDICAID, SELFPAY ==
[2022-10-10 19:16] VITALS: BP 151/81; PULSE 62; RESP 18; TEMP 36.9; O2SAT 97; BMI 43.0
[2022-10-10 20:08] LABS: Add Urine Microscopic? NO; Charge for UA Resulting for Rev
[2022-10-10 20:10] LABS: Bilirubin Urine Neg (Negative); Blood Urine Neg (Negative); Glucose Urine UA Norm (Normal); Ketones Urine Negative (Negative); Leukocyte Esterase Urine Negative (Negative); Nitrate Urine Negative (Negative); Protein Urine Neg (Negative); Specific Gravity, Urine 1.015 (1.005-1.030); Urine Appearance Clear (CLEAR); Urine Color Yellow (Yellow); Urobilinogen Urine Norm (Negative); pH Urine 5 (5-7)
[2022-10-10 22:58] LABS: Basophils # 0.1 10^3/uL (0.0-0.1); Basophils % 0.7 %; Eosinophils # 0.5 10^3/uL (0.0-0.8); Eosinophils % 4.8 %; Hematocrit 42.9 % (37.0-47.0); Hemoglobin 13.6 g/dL (11.5-15.3); Lymphocytes # 1.7 10^3/uL (0.8-4.8); Mean Corpuscular HGB Conc 31.7 g/dL (30.0-36.0); Mean Corpuscular Hemoglobin 31.7 pg (28.0-34.0); Mean Platelet Volume 13.4 fL (7.4-10.4); Monocytes # 0.7 10^3/uL (0.2-0.9); Monocytes % 7.1 %; Neutrophils # 7.13 10^3/uL (1.8-7.7); Neutrophils % 69.6 %; Nucleated Red Blood Cells % 0 %; Platelet Count 158 10^3/cmm (130-400); Red Blood Count 4.29 10^6/uL (4.1-5.3); Red Cell Distribution Width 12.7 % (12.1-15.1); White Blood Count 10.2 10^3/uL (4.0-10.0)
[2022-10-10 23:09] LABS: Alanine Aminotransferase 17 U/L (0-33); Alkaline Phosphatase 78 U/L (35-105); Aspartate Amino Transferase 21 U/L (0-32); Blood Urea Nitrogen 22 mg/dL (8-23); Calcium 9.7 mg/dL (8.5-10.5); Carbon Dioxide 22 mmol/L (22-29); Chloride 103 mmol/L (98-107); Globulin 2.8 g/dL (1.3-4.6); Glucose 156 mg/dL (65-115); Lipase 67 U/L (13-60); Osmolality Calculated 291 mOsm/kg (285-295); Sodium 137 mmol/L (136-145); Total Bilirubin 0.6 mg/dL (0.15-1.2); Total Protein 6.8 g/dL (6.6-8.7)
[2022-10-10 23:22] LABS: Slide Review Slide Review Perform
--- NOTE | 2022-10-11 00:03 | CTR_ITS ---
PROCEDURE INFORMATION: Exam: CT Lumbar Spine Without Contrast Exam date and time: 10/11/2022 1:07 AM Age: 81 years old Clinical indication: Low back pain TECHNIQUE: Imaging protocol: Computed tomography of the lumbar spine without contrast. Radiation optimization: All CT scans at this facility use at least one of these dose optimization techniques: automated exposure control; mA and/or kV adjustment per patient size (includes targeted exams where dose is matched to clinical indication); or iterative reconstruction. COMPARISON: CT kidney stone [id number] 10/05/2022 7:49 PM RADIATION DOSE METRICS: Total DLP (mGy-cm): 1146.12 FINDINGS: Bones/joints: Moderate levoscoliosis. T12-L1: Moderate to severe degenerative disc disease and spondylosis. L1-L2: Severe degenerative disc disease and spondylosis. L2-L3: Severe degenerative disc disease and spondylosis. L3-L4: Moderate degenerative disc disease and spondylosis. Moderate central spinal stenosis with left lateral recess stenosis. L4-L5: Mild to moderate degenerative disc disease and spondylosis. Mild left foraminal stenosis. [id number] right foraminal stenosis. Moderate to severe central spinal stenosis. Severe facet hypertrophy and degenerative change. L5-S1: Severe left facet hypertrophy and degenerative change. Mild degenerative disc disease and spondylosis. Gallbladder and bile ducts: Surgical clips in the gallbladder fossa consistent with cholecystectomy. Vasculature: Calcification of the abdominal aorta and/or iliac arteries consistent with atherosclerotic vessel disease. Soft tissues: Unremarkable. CT/CT lumbar spine wo con* [id number] IMPRESSION: 1. Moderate levoscoliosis. 2. Multilevel degenerative changes including degenerative disc disease and/or spondylosis and/or facet degenerative changes with possible associated multilevel central spinal stenosis and/or lateral recess stenosis and/or foraminal stenosis as discussed above.
--- NOTE | 2022-10-11 00:03 | CTR_ITS ---
PROCEDURE INFORMATION: Exam: CT Abdomen And Pelvis With Contrast Exam date and time: 10/11/2022 1:10 AM Age: 81 years old Clinical indication: Abdominal pain; Flank; Right; Prior surgery; Surgery date: 6+ months; Surgery type: Appendectomy, hysterectomy, lithotripsy, egd; Patient HX: Gfr 39 - 75 ml omni 350 administered. PT premedicated for contrast allergy; Additional info: R flank pain TECHNIQUE: Imaging protocol: Computed tomography of the abdomen and pelvis with contrast. Radiation optimization: All CT scans at this facility use at least one of these dose optimization techniques: automated exposure control; mA and/or kV adjustment per patient size (includes targeted exams where dose is matched to clinical indication); or iterative reconstruction. Contrast material: OMNI 350; Contrast volume: 75 ml; Contrast route: INTRAVENOUS (IV); COMPARISON: CT kidney stone [id number] 10/05/2022 7:49 PM RADIATION DOSE METRICS: Total DLP (mGy-cm): 970.4 FINDINGS: Liver: Normal. No mass. Gallbladder and bile ducts: Stable cholecystectomy. Pancreas: Normal. No ductal dilation. Spleen: Normal. No splenomegaly. Adrenal glands: Normal. No mass. Kidneys and ureters: Normal. No hydronephrosis. Stomach and bowel: Severe colonic diverticulosis. Appendix: Normal appendix. Intraperitoneal space: Unremarkable. No free air. No significant fluid collection. Vasculature: Calcification of the abdominal aorta and/or iliac arteries consistent with atherosclerotic vessel disease. One or more calcified pelvic phleboliths. Lymph nodes: Unremarkable. No enlarged lymph nodes. Urinary bladder: Possible urinary bladder prolapse and/or rectal prolapse. Reproductive: Stable hysterectomy. Bones/joints: Levoscoliosis. Soft tissues: Unremarkable. Other findings: Severe calcified peripheral vascular disease. CT/CT abdomen pelvis w con* [id number] IMPRESSION: 1. Stable hysterectomy. 2. Possible urinary bladder prolapse and/or rectal prolapse. 3. Severe colonic diverticulosis. 4. Normal appendix.
[2022-10-11] MEDS: hydrocortisone 100 mg/2 mL SDV IVP (00:57)
[2022-10-11] MEDS: diphenhydrAMINE 50 mg/mL SDV 1mL 25 MG IVP (00:59)
[2022-10-11 01:01] VITALS: PULSE 69; RESP 16; O2SAT 94
[2022-10-11] MEDS: iohexol 350 mg/mL 500 mL Btl (per mL) IV (01:17)
--- NOTE | 2022-10-11 01:36 | ED_ITS ---
HPI - Back Pain/Injury General: Chief Complaint: Back Pain/Injury Stated Complaint: low back pain, Time Seen by Provider: 10/10/22 22:54 Source: patient History of Present Illness: 81-year-old female presenting for the second time in a week with right flank pain. She notes that the pain is in her lower back on the right side, and tends to wrap around her pelvis. She was treated for urinary tract infection last week. She does not note any significant urine symptoms. No blood in the urine. She had evidence of hydronephrosis on her prior CT last week as if she had just passed a stone. She denies fevers. She denies vomiting. She did have a couple of episodes of diarrhea in the last 12 hours or so. MD elicited complaint: back pain Pertinent past history: prior back pain Onset (ago): day(s) Timing: intermittent Severity: similar to previous episodes Similar Symptoms Previously: Yes Quality: sharp Location: right flank Radiation: abdomen and groin Exacerbating factors: none Relieving factors: medication Context: other (pain worse with standing. ) Associated symptoms: Reports abdominal pain, chills, change in bowel habits, fatigue, nausea and vomiting; Deny difficulty walking, dysuria, fecal incontinence, fever(s), hematuria, syncope or tingling/numbness/burning Review of Systems Const: Reports: chills and fatigue; Denies: fever(s) Card: Denies: chest pain, palpitations or syncope Resp: Denies: dyspnea GI: Reports: abdominal pain, nausea, vomiting and change in bowel habits; Denies: fecal incontinence : Denies: dysuria or hematuria Musc: Reports: back pain Neuro: Denies: difficulty walking [facility] ED PFSH: Medical History Atrial fibrillation Chronic acquired lymphedema Chronic kidney disease Degenerative arthritis GERD (gastroesophageal reflux disease) Glaucoma Hereditary hemochromatosis HTN (hypertension) Hyperlipidemia Nephrolithiasis Peripheral arterial disease Recurrent UTI Type 2 diabetes mellitus Surgical History H/O lithotripsy x 2 History of ankle surgery Right ankle fusion History of bilateral knee replacement History of carpal tunnel surgery of right wrist History of colonoscopy (2019) History of esophagogastroduodenoscopy (2019) Hx laparoscopic cholecystectomy Hx of cataract surgery Hx of hysterectomy Hx of left breast biopsy Family History Mother Alzheimer disease Sister Cancer Father Alcohol abuse Daughter CAD (coronary artery disease) Social History Smoking and tobacco status: never smoked Alcohol intake: never Marital status: / Current occupational status: retired and disabled Female Reproductive History: Spontaneous abortions: No Physical Exam Const: COMMON NORMALS: no acute distress GENERAL APPEARANCE: cooperative and frail appearing; not ill appearing NUTRITIONAL APPEARANCE: obese HENMT: COMMON NORMALS: normocephalic, atraumatic and Normal external nose present HEAD & SCALP: normocephalic and atraumatic FACE & SINUS: normal facial exam and face symmetric NOSE: Normal external nose present Eye: COMMON NORMALS: Equal, round and reactive pupils present and EOMs intact bilaterally PUPIL: Yes Equal, round and reactive pupils present Neck/C-Spine: GENERAL: Yes trachea midline Chest: CHEST: Yes Symmetrical chest wall rise Resp: COMMON NORMALS: normal respiratory effort, No retractions, No use of accessory muscles and clear to auscultation bilaterally AUSCULTATION: clear to auscultation bilaterally Cardio: COMMON NORMALS: regular rate and regular rhythm RATE: regular rate RHYTHM: regular rhythm GI: COMMON NORMALS: Normal to inspection, nondistended, normoactive bowel sounds present and Soft to palpation PALPATION: Yes Soft to palpation and Yes Tenderness to palpation present (GI) (mild) Details: RLQ : BLADDER/KIDNEY EXAM: Yes CVA tenderness on the right Back/Pelvis: GENERAL BACK: Yes CVA tenderness LUMBAR SPINE/LOWER BACK: No lumbar spinal tenderness SACROILIAC JOINTS: Yes SI joint(s) abnormal (ttp on right) Extremity: COMMON NORMALS: no pedal edema Neuro: [place] COMA SCALE: document GCS findings [place] coma scale eye opening: Spontaneous [place] coma scale verbal response: Orientated [place] coma scale motor response: Obey commands [place] coma scale total score: 15 SENSORY EXAM: Yes extremities (intact) Psych: COMMON NORMALS: speech normal SPEECH: Yes normal speech Skin: COMMON NORMALS: no rashes or lesions noted GENERAL SKIN EXAM: no rashes or lesions noted Course Vital Signs: Vital signs: Vital Signs Temperature 98.4 F 10/10/22 19:16 Pulse Rate 69 10/11/22 02:48 Respiratory Rate 18 10/11/22 02:48 Blood Pressure 123/73 10/11/22 02:48 Pulse Oximetry 93 10/11/22 02:48 Oxygen Delivery Me thod 10/11/22 01:01 MDM - Back Pain/Injury Medical Decision Making 81-year-old female presenting for the second time of the right lower back and flank pain. Her white blood cell count is up to 10.2. Creatinine is 1.2. Other laboratory is not remarkable. Urinalysis is now negative after having been treated. CT performed with contrast this time shows possible urinary bladder and/or rectal prolapse, and resolution of the prior hydronephrosis. No other acute findings. CT of the lumbar spine shows multilevel facet degenerative change and central canal stenosis. This is worst at L4-L5, and L5- s1. Labs : 10/10/22 18:57 10/10/22 18:57 Radiology Impressions Abdomen/Pelvis CT 10/11/22 00:03 IMPRESSION: 1. Stable hysterectomy. 2. Possible urinary bladder prolapse and/or rectal prolapse. 3. Severe colonic diverticulosis. 4. Normal appendix. Lumbar Spine CT 10/11/22 00:03 IMPRESSION: 1. Moderate levoscoliosis. 2. Multilevel degenerative changes including degenerative disc disease and/or spondylosis and/or facet degenerative changes with possible associated multilevel central spinal stenosis and/or lateral recess stenosis and/or foraminal stenosis as discussed above. Laboratory Results WBC 10.2 10^3/uL (4.0-10.0) H 10/10/22 18:57 RBC 4.29 10^6/uL (4.1-5.3) 10/10/22 18:57 Hgb 13.6 g/dL (11.5-15.3) 10/10/22 18:57 Hct 42.9 % (37.0-47.0) 10/10/22 18:57 MCV 100.0 fl (81-99) H 10/10/22 18:57 MCH 31.7 pg (28.0-34.0) 10/10/22 18:57 MCHC 31.7 g/dL (30.0-36.0) 10/10/22 18:57 RDW 12.7 % (12.1-15.1) 10/10/22 18:57 Plt Count 158 10^3/cmm (130-400) 10/10/22 18:57 MPV 13.4 fL (7.4-10.4) H 10/10/22 18:57 Neut % (Auto) 69.6 % 10/10/22 18:57 Lymph % (Auto) 17.0 % 10/10/22 18:57 [place] % (Auto) 7.1 % 10/10/22 18:57 Eos % (Auto) 4.8 % 10/10/22 18:57 Baso % (Auto) 0.7 % 10/10/22 18:57 Neut # (Auto) 7.13 10^3/uL (1.8-7.7) 10/10/22 18:57 Lymph # (Auto) 1.7 10^3/uL (0.8-4.8) 10/10/22 18:57 [place] # (Auto) 0.7 10^3/uL (0.2-0.9) 10/10/22 18:57 Eos # (Auto) 0.5 10^3/uL (0.0-0.8) 10/10/22 18:57 Baso # (Auto) 0.1 10^3/uL (0.0-0.1) 10/10/22 18:57 Nucleated RBC % (auto) 0 % 10/10/22 18:57 Nucleated RBCs # 0.0 /100WBC 10/10/22 18:57 Sodium 137 mmol/L (136-145) 10/10/22 18:57 Potassium 4.0 mmol/L (3.5-5.1) 10/10/22 18:57 Chloride 103 mmol/L (98-107) 10/10/22 18:57 Carbon Dioxide 22 mmol/L (22-29) 10/10/22 18:57 Anion Gap 16.0 (5-19) 10/10/22 18:57 BUN 22 mg/dL (8-23) 10/10/22 18:57 Creatinine 1.2 mg/dL (0.5-0.9) H 10/10/22 18:57 GFR Calculation Not Reportable 10/10/22 18:57 Glucose 156 mg/dL (65-115) H 10/10/22 18:57 Calculated Osmolality 291 mOsm/kg (285-295) 10/10/22 18:57 Calcium 9.7 mg/dL (8.5-10.5) 10/10/22 18:57 Total Bilirubin 0.6 mg/dL (0.15-1.2) 10/10/22 18:57 AST 21 U/L (0-32) 10/10/22 18:57 ALT 17 U/L (0-33) 10/10/22 18:57 Alkaline Phosphatase 78 U/L (35-105) 10/10/22 18:57 Total Protein 6.8 g/dL (6.6-8.7) 10/10/22 18:57 Albumin 4.0 g/dL (3.5-5.2) 10/10/22 18:57 Globulin 2.8 g/dL (1.3-4.6) 10/10/22 18:57 Lipase 67 U/L (13-60) H 10/10/22 18:57 Urine Color Yellow (Yellow) 10/10/22 19:57 Urine Appearance Clear (CLEAR) 10/10/22 19:57 Urine pH 5 (5-7) 10/10/22 19:[address] [place] 1.015 (1.005-1.030) 10/10/22 19:57 Urine Protein Neg (Negative) 10/10/22 19:57 Urine Glucose (UA) Norm (Normal) 10/10/22 19:57 Urine Ketones Negative (Negative) 10/10/22 19:57 Urine Blood Neg (Negative) 10/10/22 19:57 Urine Nitrate Negative (Negative) 10/10/22 19:57 Urine Bilirubin Neg (Negative) 10/10/22 19:57 Urine Urobilinogen Norm mg/dL (Negative) 10/10/22 19:57 Ur Leukocyte Esterase Negative (Negative) 10/10/22 19:57 Discharge Plan Discharge Patient Disposition: Home Clinical Impression: Right flank pain Condition: Stable Prescriptions: New tramadol 50 mg tablet 50 mg PO Q6H PRN (Reason: pain) Qty: 14 0RF No Action Lantus U-100 Insulin 100 unit/mL solution 30 unit SUBCUT BID insulin lispro [Humalog KwikPen Insulin] 100 unit/mL insulin pen 10 unit SUBCUT TID lisinopril 10 mg tablet 10 mg PO DAILY atorvastatin [Lipitor] 20 mg tablet 20 mg PO DAILY aspirin [Adult Aspirin Regimen] 81 mg tablet,delayed release (DR/EC) 81 mg PO DAILY cholecalciferol (vitamin D3) 10 mcg (400 unit) capsule 10 mcg PO DAILY esomeprazole magnesium [Nexium] 20 mg capsule,delayed release(DR/EC) 20 mg PO DAILY acetaminophen [Tylenol] 325 mg tablet 325 mg PO QID PRN [place] 0.01 % drops 1 drp ophthalmic (eye) DAILY omega-3 fatty acids 1,000 mg capsule 1,000 mg PO BID methenamine hippurate 1 gram tablet 1 g PO BID Qty: 180 1RF Rx Instructions: Take 1000 mg of vitamin C with each dose of methenamine nitrofurantoin monohyd/m-cryst 100 mg capsule See Rx Instructions .ROUTE .COMPLEX Qty: 42 0RF Dose Instruction: TAKE 1 CAPSULE BY MOUTH TWICE A DAY MUST ADMINISTER WITH A MEAL/FOOD Rx Instructions: TAKE 1 CAPSULE BY MOUTH TWICE A DAY MUST ADMINISTER WITH A MEAL/FOOD cephalexin 500 mg capsule 500 mg PO Q6H 7 Days Qty: 28 0RF Discharge Orders: Discharge ED (Routine); Ordered 10/11/22 Ordered By: Ezequiel Donald Referrals: Nehemias Cotto DO [Primary Care Provider] - 1-3 days Discharge Diet: Advance as tolerated Discharge Activity: Increase activity as tolerated Patient Instructions: Flank Pain (ED), Opioid Safety, Pain Management Activity Restrictions/Additional Instructions: Take medication as needed for pain. Return for fever greater than 100, worsening pain despite treatment, vomiting liquids or medications, other concerning symptoms. Call your doctors office on Thursday, to be seen in follow- up that week. Coding Level of Care Code ED Senior Information Security Analyst for Rk Fwd Exam Comprehensive
[2022-10-11 02:48] VITALS: BP 123/73; PULSE 69; RESP 18; O2SAT 93
== END 2022-10-11 03:00 | disposition home or self-care (01) ==
PROVIDERS: Emergency Medicine; Emergency Provider Emergency Medicine; PCP Family Medicine
DX: R10.9 Unspecified abdominal pain (principal); Z79.4 Long term (current) use of insulin; Z79.82 Long term (current) use of aspirin; I12.9 Hypertensive chronic kidney disease with stage 1 through stage 4 chronic kidney disease, or unspecified chronic kidney disease; E11.22 Type 2 diabetes mellitus with diabetic chronic kidney disease; N18.9 Chronic kidney disease, unspecified; E78.5 Hyperlipidemia, unspecified; Z87.440 Personal history of urinary (tract) infections
CPT/HCPCS: 72131; 74177; 80053; 81003; 83690; 85025; 96374; 96375; 99285; J1200; J1720; Q9967

== ENCOUNTER 2022-11-11 20:03 | Emergency (ER) | payer MEDICARE, MEDICAID, SELFPAY ==
[2022-11-11 20:29] VITALS: BP 132/75; PULSE 88; RESP 18; TEMP 36.7; O2SAT 95; BMI 43.0
--- NOTE | 2022-11-11 21:00 | XRR_ITS ---
PROCEDURE INFORMATION: Exam: XR Right Foot Exam date and time: 11/11/2022 9:09 PM Age: 82 years old Clinical indication: Pain; Foot; Right; Prior surgery; Surgery date: 6+ months; Additional info: Right foot injury/pain TECHNIQUE: Imaging protocol: Radiologic exam of the Right foot. Views: 3 or more views. COMPARISON: No relevant prior studies available. FINDINGS: Bones/joints: Diffuse osteopenia noted. Postop changes of the right ankle. Nondisplaced fracture at the base of the 5th metatarsal. No additional fractures are noted. Degenerative joint changes throughout the foot. Soft tissues: Soft tissue swelling noted. Vasculature: There are atherosclerotic calcifications demonstrated. XR/XR foot RT min 3V* [id number] IMPRESSION: Nondisplaced fracture at the base of the 5th metatarsal.
--- NOTE | 2022-11-11 22:55 | W.ED.EXTPRO ---
HPI - Extremity Problem General: Chief complaint: Extremity Injury, Lower Stated complaint: foot pain Time Seen by Provider: 11/11/22 21:49 History of Present Illness: Patient is in here today for foot pain/injury. 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 She reports her foot got smashed by the door. Associated symptoms: Deny fever(s) Review of Systems Const: Denies: fever(s) or chills Musc: Reports: other (Right foot pain status post smashed by door) [facility] PFSH: Medical History Atrial fibrillation Chronic acquired lymphedema Chronic kidney disease Degenerative arthritis GERD (gastroesophageal reflux disease) Glaucoma Hereditary hemochromatosis HTN (hypertension) Hyperlipidemia Nephrolithiasis Peripheral arterial disease Recurrent UTI Type 2 diabetes mellitus Surgical History H/O lithotripsy x 2 History of ankle surgery Right ankle fusion History of bilateral knee replacement History of carpal tunnel surgery of right wrist History of colonoscopy (2019) History of esophagogastroduodenoscopy (2019) Hx laparoscopic cholecystectomy Hx of cataract surgery Hx of hysterectomy Hx of left breast biopsy Family History Mother Alzheimer disease Sister Cancer Father Alcohol abuse Daughter CAD (coronary artery disease) Social History Smoking and tobacco status: never smoked Alcohol intake: never Marital status: / Current occupational status: retired and disabled Female Reproductive History: Spontaneous abortions: No Physical Exam Const: COMMON NORMALS: no acute distress, patient oriented x3 and alert Resp: COMMON NORMALS: normal respiratory effort and No use of accessory muscles Extremity: NARRATIVE EXTREMITY EXAM: Tenderness to palpation dorsal right foot over the fifth metatarsal. No obvious bony deformity or soft tissue deformity appreciated in the area of tenderness. Patient does have chronic arthritic changes noted to all toes. Color and sensation movement within normal limits. Neuro: COMMON NORMALS: patient oriented x3 SENSORIUM/ORIENTATION: Yes alert Course Vital Signs: Vital signs: Vital Signs Temperature 98.1 F 11/11/22 20:29 Pulse Rate 88 11/11/22 20:29 Respiratory Rate 18 11/11/22 20:29 Blood Pressure 132/75 11/11/22 20:29 Pulse Oximetry 95 11/11/22 20:29 Oxygen Delivery Me thod 11/11/22 20:29 MDM - Extremity (Nontraumatic) Medical Decision Making Consider contusion foot, fracture foot X-ray shows nondisplaced fracture at the base of the fifth metatarsal. Will place patient in a walking boot. She uses a motorized wheelchair at home and is able to manage with the boot. Keep minimal weightbearing on the foot. Refer patient to orthopedics for continued follow-up. Advised her of conservative treatment at home including ice, rest, elevation. Return to the ER as needed for new or worsening symptoms Consulted Dr. Garcia for outpatient pain control. Prescription for [place] 5 mg 325 mg 1 p.o. every 4-6 hours as needed for pain #15 no refills Lab Data Radiology Impressions Foot X-Ray 11/11/22 21:00 IMPRESSION: Nondisplaced fracture at the base of the 5th metatarsal. Discharge Plan Discharge Patient Disposition: Home Clinical Impression: Fracture of metatarsal bone of right foot Qualifiers: Encounter type: initial encounter Metatarsal bone: fifth Fracture type: closed Fracture alignment: nondisplaced Qualified Code(s): S92.354A - Nondisplaced fracture of fifth metatarsal bone, right foot, initial encounter for closed fracture Condition: Stable Prescriptions: No Action insulin lispro [Humalog KwikPen Insulin] 100 unit/mL insulin pen 10 unit SUBCUT TID lisinopril 10 mg tablet 10 mg PO DAILY atorvastatin [Lipitor] 20 mg tablet 20 mg PO DAILY aspirin [Adult Aspirin Regimen] 81 mg tablet,delayed release (DR/EC) 81 mg PO DAILY cholecalciferol (vitamin D3) 10 mcg (400 unit) capsule 10 mcg PO DAILY esomeprazole magnesium [Nexium] 20 mg capsule,delayed release(DR/EC) 20 mg PO DAILY acetaminophen [Tylenol] 325 mg tablet 325 mg PO QID PRN Lumigan 0.01 % drops 1 drp ophthalmic (eye) DAILY omega-3 fatty acids 1,000 mg capsule 1,000 mg PO BID methenamine hippurate 1 gram tablet 1 g PO BID Qty: 180 1RF Rx Instructions: Take 1000 mg of vitamin C with each dose of methenamine nitrofurantoin monohyd/m-cryst 100 mg capsule See Rx Instructions .ROUTE .COMPLEX Qty: 42 0RF Dose Instruction: TAKE 1 CAPSULE BY MOUTH TWICE A DAY MUST ADMINISTER WITH A MEAL/FOOD Rx Instructions: TAKE 1 CAPSULE BY MOUTH TWICE A DAY MUST ADMINISTER WITH A MEAL/FOOD insulin glargine [Lantus Solostar U-100 Insulin] 100 unit/mL (3 mL) insulin pen See Rx Instructions .ROUTE .COMPLEX Qty: 15 12RF Dose Instruction: INJECT 30 UNITS SUBCUTANEOUSLY TWICE DAILY Rx Instructions: INJECT 30 UNITS SUBCUTANEOUSLY TWICE DAILY tramadol 50 mg tablet 50 mg PO Q6H PRN (Reason: pain) Qty: 14 0RF Discharge Orders: Discharge ED (Routine); Ordered 11/11/22 Ordered By: Tatiana Payne Referrals: Nehemias Cotto DO [Primary Care Provider] - Discharge Diet: Usual diet Discharge Activity: Limit activity as instructed Patient Instructions: Foot Fracture in Adults (ED), Opioid Safety, Pain Management Activity Restrictions/Additional Instructions: Limit weightbearing on the right foot. Keep boot in place and use your motorized wheelchair. Ice, rest, elevate the extremity. Use pain medication as prescribed as needed for pain, but be cautious as they can make you drowsy and increase your risk of fall. Follow-up with orthopedics for continued management. Return to the ER as needed for new or worsening symptoms. Coding Level of Care Code ED Director Of Corporate Strategy for Rk Fwd Exam Expanded Problem Focused
[2022-11-11] MEDS: HYDROcodone-acetaminophen 5-325 mg Tablet 1 TAB PO (23:14)
[2022-11-11] MEDS: tetanus-dipt-pertussis 0.5 mL SDV IM (23:33)
--- NOTE | 2022-11-12 13:52 | DCPLANNER ---
Addendum entered by Teresa Burnette 11/26/22 13:26: Patient had a follow up appointment scheduled with ortho - patient did attend appointment. Addendum entered by Teresa Burnette 11/18/22 12:06: Patient has a follow up appointment scheduled for Thursday, November 19, 2022 at 11:[address] Dominguez at ortho. Clinic will call patient with appointment information. Original Note: it communications manager had message to schedule a follow up appointment for patient with ortho. it communications manager sent patients information to the front office staff at ortho. Patients information will be printed and reviewed. Clinic will call patient with appointment information.
== END 2022-11-12 00:08 | disposition home or self-care (01) ==
PROVIDERS: Emergency Provider Nurse Practitioner Family; PCP Family Medicine
DX: S92.354A Nondisplaced fracture of fifth metatarsal bone, right foot, initial encounter for closed fracture (principal); Z79.82 Long term (current) use of aspirin; Z79.4 Long term (current) use of insulin; I12.9 Hypertensive chronic kidney disease with stage 1 through stage 4 chronic kidney disease, or unspecified chronic kidney disease; E11.22 Type 2 diabetes mellitus with diabetic chronic kidney disease; N18.9 Chronic kidney disease, unspecified; E78.5 Hyperlipidemia, unspecified; W23.0XXA Caught, crushed, jammed, or pinched between moving objects, initial encounter; Z23 Encounter for immunization
CPT/HCPCS: 73630; 90471; 90715; 99283; L4361

== ENCOUNTER → 2022-11-19 09:51 | Outpatient (BNVA) | payer MEDICARE, MEDICAID, SELFPAY | PROVIDERS: PCP Family Medicine; Visit Provider Podiatrist Foot & Ankle Surgery | DX: S92.354A Nondisplaced fracture of fifth metatarsal bone, right foot, initial encounter for closed fracture (principal); W23.0XXA Caught, crushed, jammed, or pinched between moving objects, initial encounter | CPT/HCPCS: 73630; 99204 ==

== ENCOUNTER → 2022-12-02 14:19 | Outpatient (BNVA) | payer MEDICARE, MEDICAID, SELFPAY | PROVIDERS: PCP Family Medicine; Visit Provider Podiatrist Foot & Ankle Surgery | DX: S92.351A Displaced fracture of fifth metatarsal bone, right foot, initial encounter for closed fracture (principal); W23.0XXA Caught, crushed, jammed, or pinched between moving objects, initial encounter | CPT/HCPCS: 73630; 99214 ==

== ENCOUNTER → 2023-01-05 14:27 | Outpatient (BNVA) | payer MEDICARE, MEDICAID, SELFPAY | PROVIDERS: PCP Family Medicine; Visit Provider Podiatrist Foot & Ankle Surgery | DX: S92.354D Nondisplaced fracture of fifth metatarsal bone, right foot, subsequent encounter for fracture with routine healing (principal); W23.0XXD Caught, crushed, jammed, or pinched between moving objects, subsequent encounter | CPT/HCPCS: 73620; 73630 ==

== ENCOUNTER 2023-01-05 15:24 | Outpatient (CLI) | payer MEDICARE, MEDICAID, SELFPAY | END 2023-01-05 15:25 | disposition home or self-care (01) | LOC: SPT 15:25 | PROVIDERS: PCP Family Medicine; Visit Provider Podiatrist Foot & Ankle Surgery | DX: Z46.89 Encounter for fitting and adjustment of other specified devices (principal); S92.351D Displaced fracture of fifth metatarsal bone, right foot, subsequent encounter for fracture with routine healing; X58.XXXD Exposure to other specified factors, subsequent encounter | CPT/HCPCS: 97760; 99214; L4361 ==

== ENCOUNTER 2023-01-14 09:43 | Oncology outpatient (recurring) (ONCR) | payer MEDICARE, MEDICAID, SELFPAY ==
[2023-01-14 10:48] LABS: Basophils # 0.1 10^3/uL (0.0-0.1); Basophils % 0.7 %; Eosinophils # 0.5 10^3/uL (0.0-0.8); Eosinophils % 5.7 %; Hematocrit 43.2 % (37.0-47.0); Hemoglobin 13.9 g/dL (11.5-15.3); Lymphocytes # 2.6 10^3/uL (0.8-4.8); Mean Corpuscular HGB Conc 32.2 g/dL (30.0-36.0); Mean Corpuscular Hemoglobin 31.4 pg (28.0-34.0); Mean Corpuscular Volume 97.7 fl (81-99); Mean Platelet Volume 12.9 fL (7.4-10.4); Monocytes # 0.7 10^3/uL (0.2-0.9); Monocytes % 8.4 %; Neutrophils # 4.41 10^3/uL (1.8-7.7); Neutrophils % 53.7 %; Nucleated Red Blood Cells % 0 %; Platelet Count 160 10^3/cmm (130-400); Red Blood Count 4.42 10^6/uL (4.1-5.3); Red Cell Distribution Width 12.8 % (12.1-15.1); White Blood Count 8.2 10^3/uL (4.0-10.0)
[2023-01-14 11:10] LABS: Alanine Aminotransferase 19 U/L (0-33); Alkaline Phosphatase 79 U/L (35-105); Blood Urea Nitrogen 39 mg/dL (8-23); Calcium 9.7 mg/dL (8.5-10.5); Carbon Dioxide 23 mmol/L (22-29); Chloride 103 mmol/L (98-107); Ferritin 130 ng/mL (15-150); Globulin 2.4 g/dL (1.3-4.6); Glucose 182 mg/dL (65-115); Iron 130 ug/dL (37-145); Osmolality Calculated 300 mOsm/kg (285-295); Sodium 138 mmol/L (136-145); Total Bilirubin 0.6 mg/dL (0.15-1.2); Total Protein 6.4 g/dL (6.6-8.7)
[2023-01-14 11:11] LABS: Anion Gap 17.2 (5-19); Aspartate Amino Transferase 26 U/L (0-32); Potassium 5.2 mmol/L (3.5-5.1)
[2023-01-14 11:12] LABS: Percent Saturation 57.5 % (20-50); Total Iron Binding Capacity 226 mcg/dl; Unsaturated Iron Binding 96 ug/dL (112-347)
[2023-01-14 14:38] LABS: Chol HDL Ratio 3.42 mg/dL (0.0-4.40); Cholesterol 154 mg/dL (0-200); HDL Cholesterol 45 mg/dL (60-100); LDL Cholesterol Calculated 74 mg/dL (50-129); Triglycerides 173 mg/dL (0-150); VLDL Cholestrol Calculation 35 mg/dL (0-30)
[2023-01-14 15:00] VITALS: BP 128/93; PULSE 66; RESP 18; TEMP 36.7; O2SAT 98
== END 2023-01-27 23:59 | disposition home or self-care (01) ==
PROVIDERS: Nurse Practitioner; PCP Family Medicine; Referring Provider Family Medicine; Visit Provider Internal Medicine Medical Oncology
DX: E83.110 Hereditary hemochromatosis (principal); I10 Essential (primary) hypertension; E11.9 Type 2 diabetes mellitus without complications; Z79.4 Long term (current) use of insulin; Z79.899 Other long term (current) drug therapy
CPT/HCPCS: 36415; 80053; 80061; 82728; 83540; 83550; 85025; 99195; 99214

== ENCOUNTER → 2023-02-09 15:00 | Outpatient (BNVA) | payer MEDICARE, MEDICAID, SELFPAY | PROVIDERS: PCP Family Medicine; Visit Provider Podiatrist Foot & Ankle Surgery | DX: S92.351A Displaced fracture of fifth metatarsal bone, right foot, initial encounter for closed fracture (principal); W23.0XXA Caught, crushed, jammed, or pinched between moving objects, initial encounter | CPT/HCPCS: 73630; 99213 ==

== ENCOUNTER → 2023-03-04 10:09 | Outpatient (BNVA) | payer MEDICARE, MEDICAID, SELFPAY | PROVIDERS: PCP Family Medicine; Visit Provider Family Medicine | DX: E11.9 Type 2 diabetes mellitus without complications (principal); Z79.4 Long term (current) use of insulin | CPT/HCPCS: 83036 ==

== ENCOUNTER 2023-04-20 11:50 | Oncology outpatient (recurring) (ONCR) | payer MEDICARE, MEDICAID, SELFPAY ==
[2023-04-20 13:01] LABS: Basophils # 0.1 10^3/uL (0.0-0.1); Basophils % 0.8 %; Eosinophils # 0.3 10^3/uL (0.0-0.8); Eosinophils % 3.8 %; Hematocrit 44.6 % (37.0-47.0); Hemoglobin 14.1 g/dL (11.5-15.3); Lymphocytes # 2.3 10^3/uL (0.8-4.8); Lymphocytes % 31.9 %; Mean Corpuscular HGB Conc 31.6 g/dL (30.0-36.0); Mean Corpuscular Hemoglobin 31.9 pg (28.0-34.0); Mean Corpuscular Volume 100.9 fl (81-99); Mean Platelet Volume 12.5 fL (7.4-10.4); Monocytes # 0.6 10^3/uL (0.2-0.9); Monocytes % 7.8 %; Neutrophils # 3.97 10^3/uL (1.8-7.7); Neutrophils % 55.3 %; Nucleated Red Blood Cells % 0 %; Platelet Count 168 10^3/cmm (130-400); Red Blood Count 4.42 10^6/uL (4.1-5.3); Red Cell Distribution Width 12.3 % (12.1-15.1); White Blood Count 7.2 10^3/uL (4.0-10.0)
[2023-04-20 13:22] LABS: Ferritin 117 ng/mL (15-150); Iron 147 ug/dL (37-145)
[2023-04-20 13:27] LABS: Percent Saturation 69.6 % (20-50); Total Iron Binding Capacity 211 mcg/dl; Unsaturated Iron Binding 64 ug/dL (112-347)
[2023-04-20 14:22] VITALS: BP 144/86; PULSE 67; RESP 18; TEMP 36.3; O2SAT 96
[2023-04-20 15:15] VITALS: BP 120/72; PULSE 67; RESP 18; TEMP 35.7; O2SAT 96
== END 2023-04-29 23:59 | disposition home or self-care (01) ==
PROVIDERS: Nurse Practitioner; PCP Family Medicine; Referring Provider Family Medicine; Visit Provider Internal Medicine Medical Oncology
DX: E83.110 Hereditary hemochromatosis (principal)
CPT/HCPCS: 36415; 82728; 83540; 83550; 85025; 99195

== ENCOUNTER → 2023-06-11 14:32 | Outpatient (BNVA) | payer MEDICARE, MEDICAID, SELFPAY | PROVIDERS: PCP Family Medicine; Visit Provider Dermatology | DX: L57.0 Actinic keratosis (principal); L73.8 Other specified follicular disorders; L82.1 Other seborrheic keratosis; L81.4 Other melanin hyperpigmentation | CPT/HCPCS: 17000; 17003; 99213 ==

== ENCOUNTER 2023-07-21 12:51 | Oncology outpatient (recurring) (ONCR) | payer MEDICARE, MEDICAID, SELFPAY ==
[2023-07-21 13:18] LABS: Basophils % 0.5 %; Eosinophils # 0.3 10^3/uL (0.0-0.8); Eosinophils % 4.4 %; Hematocrit 37.3 % (36-47); Lymphocytes # 1.9 10^3/uL (0.8-4.8); Lymphocytes % 24.6 %; Mean Corpuscular HGB Conc 32.4 g/dL (30-55); Mean Corpuscular Hemoglobin 31.8 pg (27-33); Mean Corpuscular Volume 97.9 fl (85-98); Mean Platelet Volume 12.2 fL (7.4-10.4); Monocytes # 0.7 10^3/uL (0.2-0.9); Monocytes % 9.3 %; Neutrophils # 4.59 10^3/uL (1.8-7.7); Neutrophils % 60.7 %; Nucleated Red Blood Cells % 0 %; Platelet Count 145 10^3/cmm (157-399); Red Blood Count 3.81 10^6/uL (3.85-5.65); Red Cell Distribution Width 13.1 % (12.1-15.1); White Blood Count 7.56 10^3/uL (3.29-11.43)
[2023-07-21 13:41] LABS: Alanine Aminotransferase 11 U/L (0-33); Albumin Level 3.8 g/dL (3.5-5.2); Alkaline Phosphatase 65 U/L (35-105); Anion Gap 15.3 (5-19); Aspartate Amino Transferase 13 U/L (0-32); Blood Urea Nitrogen 28 mg/dL (8-23); Carbon Dioxide 21 mmol/L (22-29); Chloride 110 mmol/L (98-107); Ferritin 77 ng/mL (15-150); Globulin 2.2 g/dL (1.3-4.6); Glucose 158 mg/dL (65-115); Iron 89 ug/dL (37-145); Osmolality Calculated 303 mOsm/kg (285-295); Percent Saturation 47.5 % (20-50); Potassium 4.3 mmol/L (3.5-5.1); Sodium 142 mmol/L (136-145); Total Bilirubin 0.8 mg/dL (0.15-1.2); Total Iron Binding Capacity 187 mcg/dl; Unsaturated Iron Binding 98 ug/dL (112-347)
[2023-07-21 14:30] VITALS: BP 129/56; PULSE 62; O2SAT 96
== END 2023-07-30 23:59 | disposition home or self-care (01) ==
PROVIDERS: Nurse Practitioner; PCP Family Medicine; Referring Provider Family Medicine; Visit Provider Internal Medicine Medical Oncology
DX: E83.110 Hereditary hemochromatosis (principal)
CPT/HCPCS: 36415; 80053; 82728; 83540; 83550; 85025

== ENCOUNTER → 2023-07-24 13:41 | Outpatient (BNVA) | payer MEDICARE, MEDICAID, SELFPAY | PROVIDERS: PCP Family Medicine; Visit Provider Nurse Practitioner Family | DX: R31.9 Hematuria, unspecified (principal) | CPT/HCPCS: 81000; 87077; 87086; 87184 ==

== ENCOUNTER 2023-08-11 13:41 | Oncology outpatient (recurring) (ONCR) | payer MEDICARE, MEDICAID, SELFPAY ==
--- OUTSIDE RECORDS SUMMARY | 2023-08-11 13:44 | XMS_ITS | Patient Health Record ---
Author Name Unknown Organization [facility] Address [address] [place] [address] Care Team Providers Care Kitchen Stewardess Name Role Phone Key Chinchilla Primary Care Provider Amrit Jerome Unavailable [phone] ALLERGIES Allergen (clinical drug ingredient) Drug/Non Drug Allergy documented on EMR Reaction Allergy Type Onset Date Status Contrast Allergy PreMed Pack Unknown Drug Allergy Active REASON FOR REFERRAL No Information MEDICATIONS Medication SIG (Take, Route, Frequency, Duration) Notes Start Date End Date Status Lisinopril 10 MG TAKE 1 TABLET BY MOUTH TWICE A DAY for 90 Active FreeStyle Jennifer 14 Day Sensor - as directed in vitro four times daily for 30 days 07/26/2021 Active Potassium Chloride ER 10 MEQ 1 tablet with food Orally Once a day for 90 days Not-Taking Lumigan 0.01 % 1 drop into affected eye in the evening in [facility] eye only Ophthalmic Once a day Active Furosemide 20 MG 1 tablet in AM Orall y Once a day for 90 days Not-Taking Methenamine Hippurate 1 GM 1 tablet Orally Twice a day Take Vitamin C BID Active Lantus SoloStar 100 UNIT/ML INJECT 30 UNITS SUBCUTANEOUSLY TWICE DAILY for 25 Active Vitamin D 50 MCG (2000 UT) 1 tablet Orally Once a day for 90 days D3 Active HumaLOG KwikPen 100 UNIT/ML INJECT 12 UNITS SUBCUTANEOUSLY EVERY DAY BEFORE MEALS for 82 Active Aspirin 81 MG 1 tablet Orally Once a day for 90 days Active metFORMIN HCl 500 MG TAKE 1 TABLET BY MOUTH TWICE A DAY WITH FOOD for 90 Active Tylenol 325 MG 1 tablet as needed Orally every 4 hrs Not-Taking Pen [place] 31G X 5 MM as directed subcutaneous twice daily for 90 days 04/10/2021 Active Vitamin C 1000 MG 1 tablet Orally Once a day Active Nystatin 025021 UNIT/GM 1 application Externally Twice a day for 14 days 03/02/2020 Not-Taking Tylenol Extra Strength 500 MG 2 tablet as needed Orally every 8 hrs Active Atorvastatin Calcium 20 MG 1 tablet at bedtime Orally Once a day for 90 Active Artificial Tear Acti ve Esomeprazole Magnesium 40 MG 1 capsule Orally Once a day for 90 Active FreeStyle Jennifer 14 Day [place] - as directed in vitro QID for 30 days Active IMMUNIZATIONS Vaccine Route Administration Date Status Comme nts Flu vaccine no Preserv 3 and > IM Intramuscular 09/10/2020 Administered SOCIAL HISTORY Tobacco Use: Social History Observation Description Date Details (start date - stop date) Never Smoker NA - NA Sex Assigned At : Social History Observation Description Sex Assigned At Unknown Household Question Answer Notes Marital status: Level of education: not finished college Tobacco Use/Smoking Question Answer Notes Are you a nonsmoker Alcohol Screen (Audit-C) Question Answer Notes Did you have a drink containing alcohol in the p ast year? No Points 0 Interpretation Negative PHQ-9 Question Answer Notes Little interest or pleasure in doing things Near ly every day Feeling down, depressed, or hopeless Nearly ever y day Trouble falling or staying asleep, or sleeping t oo much Nearly every day Feeling tired or having little energy Several da ys Poor appetite or overeating Several days Feeling bad about yourself, or that you are a failure, or have let yourself or your family down Not at all Trouble concentrating on thi ngs, such as reading the newspaper or watching television Not at all Moving or speaking so slowly that other people could have noticed. Or the opposite ? being so fidgety or restless that you have been moving around a lot more than usual Not at all Thoughts that you would be b thania off , or of hurting yourself in some way Not at all Total Score 11 Interpretation Moderate Depression PROBLEMS Problem Type ICD Code Onset Dates Problem Status W/U Status Risk SNOMED Code Notes Problem Morbid obesity (278.01) 019 Active confirmed Morbid obesity (583296164) [facility] [place] 911- Problem Unspecified anemia (285.9) 019 Problem resolved confirmed Anemia (133172763) [facility] 911- Problem Acute bronchitis (466.0) 018 Problem resolved confirmed Acute bronchitis (11683808) [facility] 911- Problem Pressure ulcer, heel (707.07) 017 Problem resolved confirmed Pressure ulcer of heel (967168879) [facility] 1- Problem Fever, unspecified (780.60) 018 Problem resolved confirmed Fever (561225859) [facility]-1- Problem Cough (786.2) 019 Problem resolved confirmed Cough (70638275) [facility] 1- Problem Diarrhea (787.91) 018 Problem resolved confirmed Diarrhea (90363205) [facility] 1- Problem Other hemochromatosis (275.03) 016 Active confirmed Hemochromatosis (565356667) [facility]- Problem Type 2 diabetes mellitus without complications (E11.9) Active confirmed Type II diabete s mellitus without complication (879967953) Problem Essential (primary) hypertension (I10) Active confirmed Essential hypertension (38193064) Problem Current moderate episode of major depressive disorder, unspecified whether recurrent (F32.1) Active confirmed 12758304 Problem Low back pain (724.2) 017 Problem resolved confirmed Low back pain (270100858) [facility]- Problem Stasis dermatitis (454.1) 017 Problem resolved confirmed Stasis dermatitis (50396193) [facility]- Problem Toe onychomycosis (110.1) 018 Problem resolved confirmed Onychomycosis caused by dermatophyte (353224889) [facility] 1- Problem UTI (599.0) 018 Problem resolved confirmed Urinary tract infection (36968780) [place] [address] 1- Problem Other abnormal findings on blood examination (790.99) 016 Problem resolved confirmed Disorder of hematopoietic system (05826634) [facility] 1- Problem Congestive heart failure (428.0) 017 Problem resolved confirmed Congestive heart failure (66642226) [facility] 1- Problem Epithelial inclusion cyst (706.2) 019 Problem resolved confirmed Epithelial inclusion cyst (272345790) [facility] 1- Problem Intermittent claudication secondary to arteriosclerosis (440.21) 017 Problem resolved confirmed Intermittent claudication due to atherosclerosis of [place] artery of limb (1967133208523) [place] [address] 911- Problem Peripheral neuropathy (356.9) 017 Problem resolved confirmed Peripheral neuropathy (300615746) [place] [address] 911- Problem Postmenopausal osteoporosis (733.01) Problem resolved confirmed Postmenopausal osteoporosis (807667530) [facility] 911- Problem Vaccination against other viral diseases, Influenza (V04.81) Problem resolved confirmed Needs influenza immunization (087958533) [facility] 911- Problem Chest pain, other type (786.59) Problem resolved confirmed Chest pain (17015309) [facility] 911- Problem Knee pain (719.46) Problem resolved confirmed Knee pain (1089736395) [place] [address] 1- Problem Lower urinary tract infection (595.0) Problem resolved confirmed Lower urinary tract infection (3042116) [place] [address] 911- Problem Acute viral syndrome (465.9) Problem resolved confirmed Acute upper respiratory infection (10974375) [place] [address] 911- Problem Ankle pain (719.47) Problem resolved confirmed Ankle pain (602189536) [place] [address] 1- Problem Bereavement adjustment reaction (309.0) Problem resolved confirmed Adjustment disorder with depressed mood (13906422) [place] [address] 911- Problem Elevated blood iron concentration (790.6) 016 Problem resolved confirmed Blood chemistry abnormal (100454424) [place] [address] 911- Problem Vitamin D deficiency, unspecified (268.9) 017 Problem resolved confirmed Vitamin D deficiency (60666641) [place] [address] 911- Problem Lymphedema (457.1) 016 Problem resolved confirmed Lymphedema (114499713) [place] [address] 911- Problem Essential hypertension (401.1) Active confirmed Essential hypertension (14775946) [facility] 911- Problem Nausea (787.02) 018 Problem resolved confirmed Nausea (548469570) [place] [address] 911- Problem Renal calculus (592.0) 016 Problem resolved confirmed Renal calculus (55981447) [facility] 911- Problem Thrush (112.0) 018 Problem resolved confirmed Thrush (12584068) [facility] 911- Problem Type 2 diabetes (250.00) 016 Active confirmed Type II diabetes mellitus without complication (686745305) [facility] 911- Problem Hemochromatosis, unspecified hemochromatosis type (E83.119) Active confirmed 398429246 Problem Arthritis of left hand (M19.042) Active confirmed 155951863 Problem Acute pyelonephritis, without medullary necrosis (590.10) 018 Problem resolved confirmed Acute pyelonephritis without medullary necrosis (379184780) [facility] 911- Problem Allergic conjunctivitis, acute (372.05) Problem resolved confirmed Acute atopic conjunctivitis (25786731) [facility] 1- Problem Enlarged heart (429.3) 017 Problem resolved confirmed Enlarged heart (9094823) [facility]- Problem Rotator cuff sprain (840.4) 019 Problem resolved confirmed Strain of rotator cuff capsule (20790508) [facility] 1- Problem Screening for breast cancer, unspecified (V76.10) 018 Problem resolved confirmed Screening for malignant neoplasm of breast (916039715) [facility] 1- Problem Screening mammogram - other (V76.12) 019 Problem resolved confirmed Screening mammography (52911523) [facility] 1- Problem Systemic inflammatory response syndrome (SIRS), unspecified (995.90) 018 Problem resolved confirmed Systemic inflammatory response syndrome (283413154) [facility]- Problem Vaccination against other viral diseases (V04.89) [address] [facility]-5 911- Problem Wellness exam (V70.0) 017 Problem resolved confirmed General examination of patient (332846486) [facility] 911- Problem Wellness exam (V72.31) 019 Problem resolved confirmed Gynecological examination normal (393094139441761) [place]-[facility] 911- Problem Arthritis of left shoulder region (M19.012) Active confirmed [id number] PLAN OF TREATMENT No Information Insurance Providers Payer Name Payer Address Payer Phone Subscriber Number Group Number Insured Name Patient Relationship to Insured Coverage Start Date [facility]age End Date [facility] [address] [address] [place] [address] [id number] Mary Nair Self - patient is the insured [place] Medicaid [address] [place] [address] [id number] Mary Nair Self - patient is the insured MEDICAL (GENERAL) HISTORY Medical History History ICD Code PREVENTIVE HEALTH MAINTENANCE Colonoscopy-2014; Refused any further Occult Stool: 03/25/2019 negative x 2 Cologuard: Has never been done Endoscopy- 2014 Nuclear stress test- Has never been done Exercise stress test- Has never been don e Echocardiogram- 05/29/2017 Carotid doppler- Has never been done CT chest- 01/14/2018; borderl ine cardiomegaly with atherosclerotic cardiovascular changes Chest xray: Has never been done PFTS- Has never been done Sleep Study: Has never been done Bone Density: 08/29/2019, osteopenia Mammogram- 08/09/2019, normal; past age 5 Pap- S/P hysterectomy Influenza vaccine- 09/10/2020 Pneumococcal vaccine- 2013 Prenvar 13- 05/19/2018 Shingles vaccine- 04/09/2016, Refused d/t cost Shingrix- 11/2019; Tetanus vaccine- 04/2016 Tdap Pertussis Vaccine: 04/2016 Tdap Hep C screenin04/2016, NR Eye Exam: 04/16/20; glaucoma with no alguerre ges since last year Diabetic foot exam: 02/22/21; left foot ; right foot 02/04 Microalbumin (urine): 02/25/2019 Controlled medication consent: Date Drug screen: Date GYNECOLOGICAL HISTORY Last menses- post menopausal control- post menopausal PAST MEDICAL HISTORY Irritable bowel syndrome Renal stone; stag [place] UTI, recurrent Osteoarthritis, low back, knees, and ank les Osteopenia Type 2 diabetes Hemochromatosis Morbid obesity, BMI >44 Enlarged heart Epithelial inclusion cyst Essential hypertension Peripheral neuropathy Glaucoma Surgical History Surgery Date(Month/Year) Hysterectomy 1972 Joint replacement, bilateral knees 2002 Fusion right ankle 2006 Carpal tunnel, right 2014 Cataract removal 05/2016 Breast biopsy, left 2009 Cholecystectomy, laparoscopic 2003
[2023-08-11 13:46] VITALS: BP 154/84; PULSE 74; RESP 18; TEMP 36.2; O2SAT 96
[2023-08-11 14:07] LABS: Basophils # 0.1 10^3/uL (0.0-0.1); Basophils % 0.8 %; Eosinophils # 0.3 10^3/uL (0.0-0.8); Eosinophils % 3.9 %; Hematocrit 40.6 % (36-47); Lymphocytes # 1.9 10^3/uL (0.8-4.8); Lymphocytes % 23.3 %; Mean Corpuscular Hemoglobin 31.9 pg (27-33); Mean Corpuscular Volume 99.5 fl (85-98); Monocytes # 0.7 10^3/uL (0.2-0.9); Neutrophils % 62.5 %; Nucleated Red Blood Cells % 0 %; Platelet Count 162 10^3/cmm (157-399); Red Blood Count 4.08 10^6/uL (3.85-5.65); Red Cell Distribution Width 12.8 % (12.1-15.1); White Blood Count 7.99 10^3/uL (3.29-11.43)
[2023-08-11 14:25] LABS: Alanine Aminotransferase 13 U/L (0-33); Albumin Level 4.2 g/dL (3.5-5.2); Alkaline Phosphatase 78 U/L (35-105); Anion Gap 13.3 (5-19); Aspartate Amino Transferase 14 U/L (0-32); Blood Urea Nitrogen 30 mg/dL (8-23); Calcium 9.2 mg/dL (8.5-10.5); Carbon Dioxide 26 mmol/L (22-29); Chloride 107 mmol/L (98-107); Ferritin 79 ng/mL (15-150); Globulin 2.5 g/dL (1.3-4.6); Glucose 165 mg/dL (65-115); Iron 70 ug/dL (37-145); Osmolality Calculated 304 mOsm/kg (285-295); Percent Saturation 37.8 % (20-50); Potassium 4.3 mmol/L (3.5-5.1); Sodium 142 mmol/L (136-145); Total Bilirubin 0.6 mg/dL (0.15-1.2); Total Iron Binding Capacity 185 mcg/dl; Total Protein 6.7 g/dL (6.6-8.7); Unsaturated Iron Binding 115 ug/dL (112-347)
== END 2023-08-29 23:59 | disposition home or self-care (01) ==
PROVIDERS: Nurse Practitioner Family; PCP Family Medicine; Referring Provider Family Medicine; Visit Provider Internal Medicine Medical Oncology
DX: E83.110 Hereditary hemochromatosis (principal); N39.0 Urinary tract infection, site not specified; R60.0 Localized edema; Z53.9 Procedure and treatment not carried out, unspecified reason
CPT/HCPCS: 36415; 80053; 82728; 83540; 83550; 85025; 99213

== ENCOUNTER 2023-08-12 12:01 | Outpatient (CLI) | payer MEDICARE, MEDICAID, SELFPAY ==
--- NOTE | 2023-08-12 12:10 | MM_ITS ---
WS: [id number] VIEWS: MLO and CC views both breasts. 3D digital tomosynthesis is also included in this exam. Comparison made with prior exam of 01/30/2009, 07/18/2010, 09/22/2012, 05/21/2016, 04/14/2018, 08/09/2019: There was no sign of mass, architectural distortion or suspicious calcification in either breast. The breasts are almost entirely fatty Impression: MM/[place] [id number] BI-RADS: 2-Benign finding. FOLLOW-UP: 1 Year Follow-up This mammogram was also analyzed by the Computer Aided Detection System R2 Imag e Energy Control Officer.
[2023-08-12 17:47] LABS: Alanine Aminotransferase 12 U/L (0-33); Albumin Level 3.9 g/dL (3.5-5.2); Alkaline Phosphatase 74 U/L (35-105); Anion Gap 13.7 (5-19); Aspartate Amino Transferase 13 U/L (0-32); Blood Urea Nitrogen 28 mg/dL (8-23); Calcium 9.3 mg/dL (8.5-10.5); Carbon Dioxide 25 mmol/L (22-29); Chloride 106 mmol/L (98-107); Ferritin 80 ng/mL (15-150); Globulin 2.7 g/dL (1.3-4.6); Glucose 156 mg/dL (65-115); Iron 83 ug/dL (37-145); Osmolality Calculated 299 mOsm/kg (285-295); Percent Saturation 42.7 % (20-50); Potassium 4.7 mmol/L (3.5-5.1); Sodium 140 mmol/L (136-145); Total Bilirubin 0.7 mg/dL (0.15-1.2); Total Iron Binding Capacity 194 mcg/dl; Total Protein 6.6 g/dL (6.6-8.7); Unsaturated Iron Binding 111 ug/dL (112-347)
[2023-08-12 18:34] LABS: Basophils # 0.1 10^3/uL (0.0-0.1); Basophils % 0.8 %; Eosinophils # 0.3 10^3/uL (0.0-0.8); Eosinophils % 4.3 %; Hematocrit 40.2 % (36-47); Lymphocytes % 25.4 %; Mean Corpuscular HGB Conc 32.1 g/dL (30-55); Mean Corpuscular Volume 99.8 fl (85-98); Monocytes # 0.6 10^3/uL (0.2-0.9); Monocytes % 8.2 %; Neutrophils # 4.77 10^3/uL (1.8-7.7); Neutrophils % 60.8 %; Nucleated Red Blood Cells % 0 %; Platelet Count 169 10^3/cmm (157-399); Red Blood Count 4.03 10^6/uL (3.85-5.65); Red Cell Distribution Width 12.9 % (12.1-15.1); White Blood Count 7.84 10^3/uL (3.29-11.43)
== END 2023-08-12 12:02 | disposition home or self-care (01) ==
LOC: RAD 12:05
PROVIDERS: Nurse Practitioner Family; PCP Family Medicine; Visit Provider Family Medicine
DX: Z12.31 Encounter for screening mammogram for malignant neoplasm of breast (principal); E83.110 Hereditary hemochromatosis
CPT/HCPCS: 77063; 77067; 80053; 82728; 83540; 83550; 85025

== ENCOUNTER → 2023-08-14 11:45 | Outpatient (BNVA) | payer MEDICARE, MEDICAID, SELFPAY | PROVIDERS: PCP Family Medicine; Visit Provider Registered Nurse Neonatal Intensive Care | DX: R30.0 Dysuria (principal); N39.0 Urinary tract infection, site not specified | CPT/HCPCS: 81000; 87077; 87086; 87184 ==

== ENCOUNTER → 2023-09-07 10:59 | Outpatient (BNVA) | payer MEDICARE, MEDICAID, SELFPAY | PROVIDERS: PCP Family Medicine; Referring Provider Family Medicine; Visit Provider Specialist | DX: M79.642 Pain in left hand (principal); M19.042 Primary osteoarthritis, left hand | CPT/HCPCS: 73130 ==

== ENCOUNTER 2023-09-07 14:54 | Emergency (ER) | payer MEDICARE, MEDICAID, SELFPAY ==
[2023-09-07 15:01] VITALS: BP 173/77; PULSE 79; RESP 17; O2SAT 97; BMI 42.3
--- NOTE | 2023-09-07 15:03 | ED_ITS ---
HPI - Fall General: Chief Complaint: Fall Stated Complaint: fall Time Seen by Provider: 09/07/23 15:00 Source: patient Mode of arrival: EMS History of Present Illness: 82-year-old female who presents to the emergency room with complaints of a fall. She was in the parking local visit she loaded her wheelchair was walking back around to get into her car and stumbled and fell landed on outstretched hands complaining of pain primarily in the left hand but to a lesser extent in the right breast. She also has some abrasion to her face to her upper lip as well as to her nose. She did not lose consciousness. She is not on any anticoagulants. EMS was called brought her in to the emergency room. MD complaint: fall Onset (ago): minute(s) Fall from: standing Place fall occurred: street Loss of consciousness: None Prolonged down time: no Symptoms prior to fall: none Context: tripped/slipped Location of injury: face Location of injury - extremities: Bilateral: hand (Wrists) Severity: mild Quality: sharp Associated symptoms-after fall: Denies abdominal pain, chest pain or neck pain Review of Systems Const: Denies: fever(s) or chills Card: Denies: chest pain Resp: Denies: dyspnea GI: Denies: abdominal pain : Denies: dysuria, urinary frequency or urinary urgency Musc: Reports: joint pain; Denies: neck pain or back pain Skin/Breast: Denies: rash PFSH ED PFSH: Medical History Atrial fibrillation Chronic acquired lymphedema Chronic kidney disease Degenerative arthritis GERD (gastroesophageal reflux disease) Glaucoma Hereditary hemochromatosis HTN (hypertension) Hyperlipidemia Nephrolithiasis Peripheral arterial disease Recurrent UTI Type 2 diabetes mellitus Surgical History H/O lithotripsy x 2 History of ankle surgery Right ankle fusion History of bilateral knee replacement History of carpal tunnel surgery of right wrist History of colonoscopy (2019) History of esophagogastroduodenoscopy (2019) Hx laparoscopic cholecystectomy Hx of cataract surgery Hx of hysterectomy Hx of left breast biopsy Family History Mother Alzheimer disease Sister Cancer Father Alcohol abuse Daughter CAD (coronary artery disease) Social History (Reviewed 09/07/23 @ 15:48 by Michelle Stearns Smoking and tobacco status: never smoked Alcohol intake: never Substance/Drug Use: never Marital status: / Current occupational status: retired and disabled Female Reproductive History: Spontaneous abortions: No Physical Exam Const: GENERAL APPEARANCE: cooperative and comfortable ORIENTATION/CONSCIOUSNESS: Yes awake, Yes oriented to person, Yes oriented to place and Yes oriented to time HENMT: COMMON NORMALS: normocephalic, atraumatic and hearing grossly normal bilaterally HEAD & SCALP: normocephalic and atraumatic Resp: COMMON NORMALS: normal respiratory effort, No retractions, No use of accessory muscles and clear to auscultation bilaterally AUSCULTATION: clear to auscultation bilaterally Cardio: COMMON NORMALS: regular rate, regular rhythm and No murmurs present (Cardio) RATE: regular rate RHYTHM: regular rhythm GI: COMMON NORMALS: Soft to palpation and No hepatosplenomegaly present AUSCULTATION: Yes normoactive bowel sounds PALPATION: Yes Soft to palpation, No Tenderness to palpation present (GI), No Guarding due to palpation present (GI) and Yes No hepatosplenomegaly present Extremity: COMMON NORMALS: capillary refill normal, no clubbing, cyanosis or edema, no calf tenderness and no pedal edema OTHER: Pain in the left wrist mild pain in the right wrist with passive range of motion abrasions bilaterally to the palms Neuro: SENSORIUM/ORIENTATION: Yes oriented to person, Yes oriented to place and Yes oriented to time Skin: OTHER: Abrasion to the upper lip at the midline Course Vital Signs: Vital signs: Vital Signs Pulse Rate 75 09/07/23 16:53 Respiratory Rate 17 09/07/23 15:01 Blood Pressure 164/81 09/07/23 16:53 Pulse Oximetry 98 09/07/23 16:53 Oxygen Delivery Me thod Room Air 09/07/23 15:01 MDM - Fall Medical Decision Making Imaging negative. Patient is complaining particularly of left wrist discomfort. We will put her in a cock-up splint she tells me she was to see Dr. Elizondo today may also help some with her carpal tunnel symptoms Tylenol or Profen as needed follow-up with primary care doctor if not improving. Medical Records I reviewed the patient's medical records. Lab Data I reviewed the patient's lab results. Radiology Impressions Wrist X-Ray 09/07/23 15:07 IMPRESSION: No acute findings. Wrist X-Ray 09/07/23 15:07 IMPRESSION: No acute findings. All radiology interpretation(s) finalized by discharge Discharge Plan Discharge Patient Disposition: Home Clinical Impression: Fall, Left wrist sprain, Abrasion hand, Abrasion of lip Condition: Stable Prescriptions: No Action aspirin [Adult Aspirin Regimen] 81 mg tablet,delayed release (DR/EC) 81 mg PO QAM cholecalciferol (vitamin D3) 10 mcg (400 unit) capsule 10 mcg PO QAM insulin lispro [Humalog KwikPen Insulin] 100 unit/mL insulin pen 10 unit SUBCUT TID PRN (Reason: BLOOD SUGARS) acetaminophen [Tylenol] 325 mg tablet 325 mg PO QID PRN (Reason: Pain) omega-3 fatty acids 1,000 mg capsule 1,000 mg PO QAM methenamine hippurate 1 gram tablet 1 g PO BID Qty: 180 1RF Rx Instructions: Take 1000 mg of vitamin C with each dose of methenamine (DME) Cam boot to right See Rx Instructions .Route .MEDSUPPLY Qty: 1 0RF Rx Instructions: As directed fluconazole [Diflucan] 150 mg tablet 150 mg PO Q3D 7 Days Qty: 3 0RF insulin glargine [Lantus Solostar U-100 Insulin] 100 unit/mL (3 mL) insulin pen See Rx Instructions .ROUTE .COMPLEX Qty: 15 12RF Dose Instruction: INJECT 30 UNITS SUBCUTANEOUSLY TWICE DAILY Rx Instructions: INJECT 30 UNITS SUBCUTANEOUSLY TWICE DAILY atorvastatin 20 mg tablet 20 mg PO BEDTIME esomeprazole magnesium 40 mg capsule,delayed release(DR/EC) 10 mg PO QAM lisinopril 10 mg tablet 10 mg PO BID Discharge Orders: Discharge ED (Routine); Ordered 09/07/23 Ordered By: Liam Hill Referrals: Nehemias Cotto DO [Primary Care Provider] - Discharge Diet: Usual diet Discharge Activity: Increase activity as tolerated Patient Instructions: Opioid Safety, Pain Management Activity Restrictions/Additional Instructions: You were seen today after a fall. There is several abrasions but no fractures on any of your x-rays. You will likely be quite sore tomorrow. You can use Tylenol or ibuprofen as needed for discomfort. Coding Level of Care Code ED Antique Collector for Rk Gonzalez
--- NOTE | 2023-09-07 15:07 | XRR_ITS ---
PROCEDURE INFORMATION: Exam: XR Nasal Bones Exam date and time: 09/07/2023 3:20 PM Age: 82 years old Clinical indication: Injury or trauma; Fall; Blunt trauma (contusions or hematomas); Nose TECHNIQUE: Imaging protocol: XR of the nasal bones. Views: Minimum of 3 views COMPARISON: No relevant prior studies available. FINDINGS: Sinuses: Well aerated. No opacification. Bones/joints: No fracture. Soft tissues: Unremarkable. XR/XR nasal bones min 3V [id number] IMPRESSION: No acute findings.
--- NOTE | 2023-09-07 15:07 | XRR_ITS ---
PROCEDURE INFORMATION: Exam: XR Right Wrist Exam date and time: 09/07/2023 3:18 PM Age: 82 years old Clinical indication: Injury or trauma; Fall; Blunt trauma (contusions or hematomas); Wrist; Bilateral; Prior surgery; Surgery date: 6+ months; Surgery type: RT carpal TECHNIQUE: Imaging protocol: Radiologic exam of the right wrist. Views: 3 or more views. COMPARISON: No relevant prior studies available. FINDINGS: Bones/joints: Osseous structures are intact. Negative for fracture. Mild DJD of the radiocarpal joint. Moderate DJD at the base of the thumb. Extensive vascular calcifications at the wrist. Soft tissues: Chondrocalcinosis of the TFCC. XR/XR wrist RT w scaphoid [id number] IMPRESSION: No acute findings.
--- NOTE | 2023-09-07 15:07 | XRR_ITS ---
PROCEDURE INFORMATION: Exam: XR Left Wrist Exam date and time: 09/07/2023 3:15 PM Age: 82 years old Clinical indication: Injury or trauma; Fall; Blunt trauma (contusions or hematomas); Wrist; Left TECHNIQUE: Imaging protocol: Radiologic exam of the left wrist. Views: 1 or 2 views. COMPARISON: CR XR hand LT min 3V* [id number] 09/07/2023 11:00 AM FINDINGS: Bones/joints: Osseous structures are intact. Negative for fracture. Moderate to severe DJD at the base of the thumb. Soft tissues: Chondrocalcinosis of the TFCC. Other findings: Extensive vascular calcifications in the wrist. XR/XR wrist LT w scaphoid [id number] IMPRESSION: No acute findings.
--- NOTE | 2023-09-07 16:18 | PC.PHAR ---
PT WANTS TO SPEAK TO SOMEONE ABOUT POA PAPERWORK
[2023-09-07] MEDS: tetanus-dipt-pertussis 0.5 mL SDV IM (16:22)
[2023-09-07 16:53] VITALS: BP 164/81; PULSE 75; O2SAT 98
== END 2023-09-07 16:20 | disposition home or self-care (01) ==
PROVIDERS: Emergency Provider Family Medicine; PCP Family Medicine
DX: S63.502A Unspecified sprain of left wrist, initial encounter (principal); S00.511A Abrasion of lip, initial encounter; S60.512A Abrasion of left hand, initial encounter; S60.511A Abrasion of right hand, initial encounter; Z79.82 Long term (current) use of aspirin; Z79.4 Long term (current) use of insulin; I12.9 Hypertensive chronic kidney disease with stage 1 through stage 4 chronic kidney disease, or unspecified chronic kidney disease; E11.22 Type 2 diabetes mellitus with diabetic chronic kidney disease; N18.9 Chronic kidney disease, unspecified; E78.5 Hyperlipidemia, unspecified; W01.0XXA Fall on same level from slipping, tripping and stumbling without subsequent striking against object, initial encounter; M79.642 Pain in left hand; M19.042 Primary osteoarthritis, left hand
CPT/HCPCS: 70160; 73110; 73130; 90471; 90715; 99204; 99284

== ENCOUNTER → 2023-09-23 13:00 | Outpatient (BNVA) | payer MEDICARE, MEDICAID, SELFPAY | PROVIDERS: PCP Family Medicine; Visit Provider Dermatology | DX: L57.0 Actinic keratosis (principal); L73.8 Other specified follicular disorders; L82.1 Other seborrheic keratosis; L81.4 Other melanin hyperpigmentation | CPT/HCPCS: 17000; 99213 ==

== ENCOUNTER → 2023-11-03 12:02 | Outpatient (BNVA) | payer MEDICARE, MEDICAID, SELFPAY | PROVIDERS: PCP Family Medicine; Visit Provider Family Medicine | DX: E11.9 Type 2 diabetes mellitus without complications (principal); I10 Essential (primary) hypertension | CPT/HCPCS: 80048; 83036 ==

== ENCOUNTER → 2024-02-02 12:09 | Outpatient (BNVA) | payer MEDICARE, MEDICAID, SELFPAY | PROVIDERS: PCP Family Medicine; Visit Provider Family Medicine | DX: E11.9 Type 2 diabetes mellitus without complications (principal); N39.0 Urinary tract infection, site not specified; R30.0 Dysuria; I10 Essential (primary) hypertension; E83.110 Hereditary hemochromatosis; E83.42 Hypomagnesemia; E55.9 Vitamin D deficiency, unspecified; R79.89 Other specified abnormal findings of blood chemistry; Z79.4 Long term (current) use of insulin | CPT/HCPCS: 80053; 80061; 81000; 82306; 82607; 82728; 83036; 83550; 83735; 84443; 85025; 87077; 87086; 87184 ==

== ENCOUNTER 2024-05-24 12:56 | Emergency (ER) | payer MEDICARE, MEDICAID, SELFPAY ==
[2024-05-24] VITALS (7 sets, daily range): BP systolic 154–176; BP diastolic 80–98; PULSE 73; TEMP 36.5; O2SAT 95–98; BMI 40.0
--- NOTE | 2024-05-24 13:37 | CTR_ITS ---
PROCEDURE INFORMATION: Exam: CT Maxillofacial Without Contrast Exam date and time: 05/24/2024 2:24 PM Age: 83 years old Clinical indication: Injury or trauma; Fall; Blunt trauma (contusions or hematomas); Forehead; Additional info: Trauma/fall TECHNIQUE: Imaging protocol: Computed tomography of the face without contrast. Radiation optimization: All CT scans at this facility use at least one of these dose optimization techniques: automated exposure control; mA and/or kV adjustment per patient size (includes targeted exams where dose is matched to clinical indication); or iterative reconstruction. COMPARISON: CT head wo con* [id number] 05/24/2024 2:24 PM RADIATION DOSE METRICS: Total DLP (mGy-cm): 605.9 FINDINGS: Orbital cavities: Orbits are normal. Globes are unremarkable. Paranasal sinuses: Right maxillary sinus is somewhat atelectatic with chronic mucosal thickening and calcification partially opacifying the sinus. Patient apparently has undergone prior maxillary antrostomy. Remainder the paranasal sinuses are clear. Bones: Nondisplaced linear fracture of indeterminate age involving the anterior-lateral wall the right maxillary sinus. No other fractures detected. Soft tissues: Small-moderate size left frontal scalp hematoma with some adjacent soft tissue swelling superficial to the left orbit. CT/CT facial bones wo con* [id number] IMPRESSION: 1. Nondisplaced linear fracture anterolateral wall right maxillary sinus of indeterminate age. 2. Chronic right maxillary sinusitis superimposed on postoperative changes. 3. Small-moderate size left frontal scalp hematoma.
--- NOTE | 2024-05-24 13:37 | CTR_ITS ---
PROCEDURE INFORMATION: Exam: CT Head Without Contrast Exam date and time: 05/24/2024 2:24 PM Age: 83 years old Clinical indication: Injury or trauma; Fall; Blunt trauma (contusions or hematomas) TECHNIQUE: Imaging protocol: Computed tomography of the head without contrast. Radiation optimization: All CT scans at this facility use at least one of these dose optimization techniques: automated exposure control; mA and/or kV adjustment per patient size (includes targeted exams where dose is matched to clinical indication); or iterative reconstruction. COMPARISON: CT facial bones wo con* [id number] 05/24/2024 2:24 PM RADIATION DOSE METRICS: Total DLP (mGy-cm): 1023 FINDINGS: Brain: There is no evidence of intracranial hemorrhage. There are no areas of mass effect, edema or midline shift. There are diffuse indistinct areas of decreased attenuation involving the periventricular white matter likely secondary to chronic white matter microvascular changes. 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 There is age-related cerebral volume loss responsible for prominence of the cortical sulci. Cerebral ventricles: There is mild proportionate ventricular dilatation believed secondary to age related cerebral volume loss. Paranasal sinuses: Right maxillary sinus partially visualized appears atelectatic with prior maxillary antrostomy and chronic mucosal thickening. Remaining paranasal sinuses are clear. No fluid levels. Mastoid air cells: Visualized mastoid air cells are well aerated. Bones/joints: Unremarkable. No acute fracture. Soft tissues: Left frontal scalp hematoma.. CT/CT head wo con* [id number] IMPRESSION: No acute intracranial abnormalities.
--- NOTE | 2024-05-24 13:37 | CTR_ITS ---
PROCEDURE INFORMATION: Exam: CT Cervical Spine Without Contrast Exam date and time: 05/24/2024 2:24 PM Age: 83 years old Clinical indication: Injury or trauma; Fall TECHNIQUE: Imaging protocol: Computed tomography of the cervical spine without contrast. Radiation optimization: All CT scans at this facility use at least one of these dose optimization techniques: automated exposure control; mA and/or kV adjustment per patient size (includes targeted exams where dose is matched to clinical indication); or iterative reconstruction. COMPARISON: CT facial bones wo con* [id number] 05/24/2024 2:24 PM RADIATION DOSE METRICS: Total DLP (mGy-cm): 277.1 FINDINGS: Bones: Mild reversal cervical lordosis with slight spondylolisthesis C2-C3, C3-C4 and C4-C5 likely degenerative in nature. Asymmetry of the lateral atlantal dental joint space at C1-C2 that may be due to patient positioning or muscle spasm. Moderate-advanced degenerative changes C5-C6 and C6-C7 with disc space narrowing endplate sclerosis and osteophytic lipping resulting in some narrowing of the spinal canal and neural foramina. No acute fracture, facet subluxation or traumatic spondylolisthesis detected. Of pronounced degenerative changes noted at the sternoclavicular junction bilaterally. Lungs: Lung apices are normal. Soft tissues: Unremarkable. CT/CT cervical spin wo con* [id number] IMPRESSION: 1. No acute bony abnormalities. 2. Advanced degenerative changes lower cervical spine.
--- NOTE | 2024-05-24 13:38 | ED_ITS ---
HPI - Head Injury General: Chief complaint: Head Injury Stated complaint: Fall Time Seen by Provider: 05/24/24 13:34 Source: patient Mode of arrival: EMS Limitations: no limitations History of Present Illness: Patient is a very nice 83-year-old female who presents to ED today for evaluation of a facial/head injury that she sustained just prior to arrival after she was walking and accidentally tripped forward and struck the left side of her face. Patient states she tripped over uneven asphalt. She denies LOC. She states her tetanus is up-to-date. She has obvious abrasions to the left side of her face, lip, and nose. She does not complain of pain anywhere else. She is not on anticoagulation. MD Complaint: head injury Onset (ago): hour(s) Mechanism of Injury: fall Place: outdoors (street) Loss of Consciousness: no Location of injury: face Severity: moderate Radiation: none Other Injuries: none Associated symptoms: Reports no associated symptoms; Deny neck pain or syncope Review of Systems Eyes: Denies: change in vision, blurry vision, photophobia, eye discharge, floaters or seeing flashes ENMT: Reports: sinus pain and other (abrasions to face/lip laceration); Denies: throat pain, odynophagia, ear or mastoid pain, ear discharge or nasal discharge Card: Denies: chest pain, palpitations, lightheadedness, syncope or pre- syncope Resp: Denies: dyspnea or pain on inspiration GI: Denies: abdominal pain : Denies: flank pain or hematuria Musc: Denies: neck pain, back pain, extremity pain or joint pain Neuro: Denies: headache(s), numbness in extremities, weakness in extremities, sensory changes or dizziness [facility] ED PFSH: Medical History Chronic kidney disease Nephrolithiasis Peripheral arterial disease Glaucoma GERD (gastroesophageal reflux disease) Degenerative arthritis Chronic acquired lymphedema Hyperlipidemia Type 2 diabetes mellitus Atrial fibrillation Hereditary hemochromatosis HTN (hypertension) Recurrent UTI Surgical History History of colonoscopy (2019) History of esophagogastroduodenoscopy (2019) History of ankle surgery Right ankle fusion H/O lithotripsy x 2 History of bilateral knee replacement History of carpal tunnel surgery of right wrist Hx of hysterectomy Hx of cataract surgery Hx of left breast biopsy Hx laparoscopic cholecystectomy Family History Mother Alzheimer disease Sister Cancer Father Alcohol abuse Daughter CAD (coronary artery disease) Social History Smoking and tobacco/nicotine status: never used tobacco/nicotine Alcohol intake: never Substance/Drug Use: never Marital status: / Current occupational status: retired and disabled Female Reproductive History: Spontaneous abortions: No Physical Exam Const: COMMON NORMALS: no acute distress, average body habitus, patient oriented x3, no limitations, healthy appearing, alert and well nourished GENERAL APPEARANCE: cooperative ORIENTATION/CONSCIOUSNESS: Yes awake, Yes oriented to person, Yes oriented to place and Yes oriented to time HENMT: COMMON NORMALS: normocephalic, atraumatic, TM's normal bilaterally and Normal external nose present HEAD & SCALP: normal to inspection, normocephalic and atraumatic; no Lizama's sign, no hematoma and no raccoon eyes FACE & SINUS: normal facial exam and other (abrasions/dried blood L side of face; no obvious large lacerations) NOSE: Normal external nose present and Other nasal findings present (small amount of blood to L nare) TYMPANIC MEMBRANE: TM's normal bilaterally MOUTH: Normal oral and palatal mucosa present and other (L upper lip laceration) TEETH & GINGIVA: Yes dentures THROAT: posterior oropharynx normal and tonsils normal Eye: COMMON NORMALS: Equal, round and reactive pupils present and EOMs intact bilaterally GENERAL EYE: appearance normal, both eyes and all related structures and normal light reflex PUPIL: Yes Equal, round and reactive pupils present DIRECT OPHTHALMOSCOPY: Yes normal light reflex Neck/C-Spine: COMMON NORMALS: full ROM GENERAL: Yes normal visual inspection CERVICAL SPINE: Yes cervical ROM normal, No pain with cervical ROM, No Cervical spine tenderness, No step off deformity and No Paracervical muscle tenderness Chest: COMMONS NORMALS: normal inspection of the chest and normal palpation of entire chest wall Resp: COMMON NORMALS: normal respiratory effort and clear to auscultation bilaterally AUSCULTATION: clear to auscultation bilaterally Cardio: COMMON NORMALS: regular rate and regular rhythm RATE: regular rate RHYTHM: regular rhythm GI: COMMON NORMALS: Normal to inspection, nondistended, normoactive bowel sounds present, Soft to palpation, non-tender, No hepatosplenomegaly present and no masses INSPECTION: Yes normal to inspection and No abdominal wall ecchymosis AUSCULTATION: Yes normoactive bowel sounds PALPATION: Yes Soft to palpation and Yes No hepatosplenomegaly present Back/Pelvis: COMMON NORMALS: thoracic and lumbar spine normal to inspection, no thoracic nor lumbar tenderness and thoraco-lumbar ROM normal Extremity: COMMON NORMALS: normal to inspection and full ROM GENERAL: Yes normal exam except as noted Neuro: CLARY COMA SCALE: document GCS findings Clary coma scale eye opening: Spontaneous Clary coma scale verbal response: Orientated [place] coma scale motor response: Obey commands Clary coma scale total score: 15 COMMON NORMALS: patient oriented x3, CN's II-XII intact bilaterally, moves all extremities, no focal motor deficits, no sensory deficits noted and gait normal SENSORIUM/ORIENTATION: Yes alert, Yes oriented to person, Yes oriented to place and Yes oriented to time SPEECH: speech normal GAIT: Yes Normal gait present Skin: COMMON NORMALS: no rashes or lesions noted GENERAL SKIN EXAM: no rashes or lesions noted TRAUMA: no lacerations or abrasions Procedures Laceration Laceration 1: Site: lip Size (cm): 1.0 Description: irregular Pre-repair: wound explored and irrigated extensively Skin layer closed with: nylon Size (cm): 5-0 Number of sutures: 2 Technique: simple, interrupted Laceration 2: Site: face Side (If applicable): left Size (cm): 0.5 Description: flap Depth: simple, single layer Pre-repair: wound explored and irrigated extensively Skin layer closed with: nylon Size (cm): 5-0 Number of sutures: 1 Technique: simple, interrupted Course Vital Signs: Vital signs: Vital Signs Temperature 97.7 F 05/24/24 13:01 Pulse Rate 73 05/24/24 13:01 Blood Pressure 176/83 05/24/24 14:05 Pulse Oximetry 97 05/24/24 14:05 Oxygen Delivery Me thod Room Air 05/24/24 13:01 MDM - Head Injury Medcial Decision Making CT head and cervical spine are unremarkable. CT facial bones showing age- indeterminate nondisplaced linear fracture of her right maxillary sinus. Due to recent trauma we will assume this is acute. Will have case management set her up with ENT. Wound care/infection precautions discussed. Medical Records I reviewed the patient's medical records. Lab Data Radiology Impressions Cervical Spine CT 05/24/24 13:37 IMPRESSION: 1. No acute bony abnormalities. 2. Advanced degenerative changes lower cervical spine. Face CT 05/24/24 13:37 IMPRESSION: 1. Nondisplaced linear fracture anterolateral wall right maxillary sinus of indeterminate age. 2. Chronic right maxillary sinusitis superimposed on postoperative changes. 3. Small-moderate size left frontal scalp hematoma. Head CT 05/24/24 13:37 IMPRESSION: No acute intracranial abnormalities. All radiology interpretation(s) finalized by discharge Discharge Plan Discharge Patient Disposition: Home Clinical Impression: Fall on same level from tripping Laceration of lip Qualifiers: Encounter type: initial encounter Qualified Code(s): S01.511A - Laceration without foreign body of lip, initial encounter Abrasion of face Qualifiers: Encounter type: initial encounter Qualified Code(s): S00.81XA - Abrasion of other part of head, initial encounter Condition: Stable Prescriptions: New hydrocodone-acetaminophen 5-325 mg tablet 1 tab PO Q6H PRN (Reason: pain) Qty: 14 0RF amoxicillin-pot clavulanate 875-125 mg tablet 1 tab PO BID Qty: 14 0RF No Action aspirin [Adult Aspirin Regimen] 81 mg tablet,delayed release (DR/EC) 81 mg PO QAM cholecalciferol (vitamin D3) 10 mcg (400 unit) capsule 10 mcg PO QAM insulin lispro [Humalog KwikPen Insulin] 100 unit/mL insulin pen 10 unit SUBCUT TID PRN (Reason: BLOOD SUGARS) Hold Instructions: Doctor's Order acetaminophen [Tylenol] 325 mg tablet 325 mg PO QID PRN (Reason: Pain) cefdinir 300 mg capsule 300 mg PO BID Qty: 20 0RF omega-3 fatty acids 1,000 mg capsule 1,000 mg PO QAM insulin glargine [Lantus Solostar U-100 Insulin] 100 unit/mL (3 mL) insulin pen See Rx Instructions .ROUTE .COMPLEX Qty: 15 12RF Dose Instruction: INJECT 30 UNITS SUBCUTANEOUSLY TWICE DAILY Rx Instructions: INJECT 30 UNITS SUBCUTANEOUSLY TWICE DAILY atorvastatin 20 mg tablet 20 mg PO BEDTIME Qty: 100 0RF esomeprazole magnesium 40 mg capsule,delayed release(DR/EC) See Rx Instructions .ROUTE .COMPLEX Qty: 90 0RF Dose Instruction: take 1 capsule BY MOUTH EVERY DAY Rx Instructions: take 1 capsule BY MOUTH EVERY DAY lisinopril 10 mg tablet 10 mg PO BID Qty: 100 0RF methenamine hippurate 1 gram tablet See Rx Instructions .ROUTE .COMPLEX Qty: 180 1RF Dose Instruction: TAKE 1 TABLET BY MOUTH TWICE DAILY with 1000mg of vitamin c Rx Instructions: TAKE 1 TABLET BY MOUTH TWICE DAILY with 1000mg of vitamin c Discharge Orders: Discharge ED (Routine); Ordered 05/24/24 Ordered By: Alicia Guillen Referrals: Nehemias Cotto DO [Primary Care Provider] - Patient Instructions: Facial Fracture (DC), Facial Laceration (ED), Opioid Safety, Pain Management Activity Restrictions/Additional Instructions: Keep facial lacerations and abrasions clean with warm soapy water and monitor for signs of infection such as worsening pain, swelling, drainage, redness/warmth, fevers. Please seek medical reevaluation if these occur. Sutures will need to be removed in approximately [address] scan of your head and neck were unremarkable. CT scan of your face showed a possible nondisplaced fracture of your right maxillary sinus. We will have case management set you up with ENT for further evaluation of this. Antibiotics and pain medications have been sent to your pharmacy on file. Coding Level of Care Code ED Chronic Specialist for Rk Gnozalez
--- NOTE | 2024-05-26 22:37 | DCPLANNER ---
Dr. Saxena doesn't handle facial fractures - Referred to [facility]NT for follow up.
== END 2024-05-24 16:15 | disposition home or self-care (01) ==
PROVIDERS: Emergency Provider Physician Assistant; PCP Family Medicine
DX: S01.511A Laceration without foreign body of lip, initial encounter (principal); S00.81XA Abrasion of other part of head, initial encounter; Z79.82 Long term (current) use of aspirin; Z79.4 Long term (current) use of insulin; S02.40CA Maxillary fracture, right side, initial encounter for closed fracture; E11.22 Type 2 diabetes mellitus with diabetic chronic kidney disease; I12.9 Hypertensive chronic kidney disease with stage 1 through stage 4 chronic kidney disease, or unspecified chronic kidney disease; N18.9 Chronic kidney disease, unspecified; E78.5 Hyperlipidemia, unspecified; W01.0XXA Fall on same level from slipping, tripping and stumbling without subsequent striking against object, initial encounter
CPT/HCPCS: 12011; 70450; 70486; 72125; 99283

== ENCOUNTER → 2024-06-21 15:11 | Outpatient (BNVA) | payer MEDICARE, MEDICAID, SELFPAY | PROVIDERS: PCP Family Medicine; Visit Provider Family Medicine | DX: I10 Essential (primary) hypertension (principal); E11.9 Type 2 diabetes mellitus without complications; E83.110 Hereditary hemochromatosis; E55.9 Vitamin D deficiency, unspecified; R79.89 Other specified abnormal findings of blood chemistry; R30.0 Dysuria; R39.9 Unspecified symptoms and signs involving the genitourinary system; Z79.4 Long term (current) use of insulin; Z09 Encounter for follow-up examination after completed treatment for conditions other than malignant neoplasm | CPT/HCPCS: 80053; 80061; 81000; 82306; 82607; 83036; 83540; 84443; 85025; 87086 ==

== ENCOUNTER → 2024-09-12 10:52 | Outpatient (BNVA) | payer MEDICARE, MEDICAID, SELFPAY | PROVIDERS: PCP Family Medicine; Visit Provider Nurse Practitioner Family | DX: L57.0 Actinic keratosis (principal); L82.1 Other seborrheic keratosis; L81.4 Other melanin hyperpigmentation; L73.8 Other specified follicular disorders; L57.8 Other skin changes due to chronic exposure to nonionizing radiation | CPT/HCPCS: 17000; 99213 ==

== ENCOUNTER → 2024-09-23 12:35 | Outpatient (BNVA) | payer MEDICARE, MEDICAID, SELFPAY | PROVIDERS: PCP Family Medicine | DX: N23 Unspecified renal colic (principal) | CPT/HCPCS: 81000 ==

== ENCOUNTER 2024-09-29 12:54 | Emergency (ER) | payer MEDICARE, MEDICAID, SELFPAY ==
[2024-09-29 13:02] VITALS: BP 185/87; PULSE 54; TEMP 36.8; O2SAT 98; BMI 40.0
--- NOTE | 2024-09-29 13:24 | CT_ITS ---
WS: [id number] CT ABDOMEN AND PELVIS NONCONTRAST HISTORY: right flank pain TECHNIQUE: Imaging performed through the abdomen and pelvis. Coronal and sagittal reformats are submi tted. All CT scans at [facility] use at least one of these dose optimization techniques: auto mated exposure control; mA and/or kV adjustment per patient size (includes targeted exams where dose is matched to clinical indication); or iterative reconstruction. DLP: 849.65 mGy.cm COMPARISON: 10/11/2022 Lower thorax: Lung bases are clear. Visualized heart is normal. Small hiatal hernia. Liver: Heterogeneous appearance to the liver. There is a new area of decreased attenuation in the LEF T lobe of the liver measuring 3.7 x 2.7 cm. No bile duct dilatation. Gallbladder: Prior cholecystectomy. Pancreas: Normal size and attenuation. Normal pancreatic duct. No pancreatitis or mass. Spleen: Normal. Adrenal glands: Normal. No mass. Right kidney: Normal size kidney. No renal obstruction is identified. No hydronephrosis. Left kidney: Normal size kidney with nonobstructing calcifications. Small amount of stranding surroun ding the kidney. Aorta: Moderate to severe atherosclerosis abdominal aorta. No aneurysm. Atherosclerosis continues int o the common iliac arteries. Dense calcification extends into the celiac axis and SMA. No free fluid, intraperitoneal air or significant lymphadenopathy. GI tract: Stomach is not distended. No small bowel obstruction. Normal appendix. Diverticular burden throughout the colon. There is minimal soft tissue stranding around the descending colon. This is at the level of the kidney may be related to the kidney. Abdominal wall: Small umbilical hernia contains fat only. Pelvis: Prior hysterectomy. Urinary bladder is negative. Osseous structures: Advanced degenerative changes in the lower thoracic and entire lumbar spine. Oste openia. Component of central and foraminal stenosis throughout the lumbar spine. CT/CT kidney stone [id number] IMPRESSION: 1. No renal obstruction or ureteral calcification. 2. Mild stranding around the LEFT kidney extending to the adjacent descending colon where there are diverticula. Favor pyelonephritis as a possible etiology. Mild early changes of descending colon diverticulitis cannot be excluded. 3. New area of abnormal attenuation in the LEFT lobe of the liver measures 3.7 x 2.7 cm. Neoplasm is not excluded. Consider evaluation by ultrasound. Differe ntial includes neoplasm or focal hepatic steatosis. 4. Prior cholecystectomy. 5. Extensive atherosclerosis aorta and mesenteric arteries. No GI tract ischem ia.
[2024-09-29 13:55] LABS: Basophils # 0.1 10^3/uL (0.0-0.1); Basophils % 0.5 %; Eosinophils # 0.2 10^3/uL (0.0-0.8); Eosinophils % 1.7 %; Hematocrit 44.2 % (36-47); Lymphocytes # 1.8 10^3/uL (0.8-4.8); Lymphocytes % 18.7 %; Mean Corpuscular HGB Conc 32.6 g/dL (30-55); Mean Corpuscular Hemoglobin 31.8 pg (27-33); Mean Corpuscular Volume 97.6 fl (85-98); Mean Platelet Volume 12.2 fL (7.4-10.4); Monocytes # 0.7 10^3/uL (0.2-0.9); Monocytes % 6.8 %; Neutrophils # 7.06 10^3/uL (1.8-7.7); Neutrophils % 71.8 %; Nucleated Red Blood Cells % 0 %; Platelet Count 166 10^3/cmm (157-399); Red Blood Count 4.53 10^6/uL (3.85-5.65); Red Cell Distribution Width 12.3 % (12.1-15.1); White Blood Count 9.84 10^3/uL (3.29-11.43)
--- NOTE | 2024-09-29 14:03 | ED_ITS ---
HPI - Female Genitourinary 2 General: Chief complaint: Urogenital-Female Stated complaint: BACK PAIN Time Seen by Provider: 09/29/24 13:24 History of Present Illness: Presents to the ER with complaining of right flank pain that radiates down to her groin. This been going on for past few days. Patient has seen her PCP for this and was started on an antibiotic. It made no difference in pain. It seems to be the pain is worse when the patient moves and feels better when she lies down on a heating pad. Patient does have a history of having kidney stones in the past. Patient did take Tylenol before coming here to the ER. Patient denies any diarrhea does admit to having some nausea vomiting. Related Data Home Medications Medication Instructions Recorded Confirmed aspirin 81 mg tablet,delayed 81 mg PO QAM 09/24/20 09/23/24 release (Adult Aspirin Regimen) cholecalciferol (vitamin D3) 10 10 mcg PO QAM 09/24/20 09/23/24 mcg (400 unit) capsule acetaminophen 325 mg tablet 325 mg PO QID PRN Pain 08/21/21 09/23/24 (Tylenol) omega-3 fatty acids 1,000 mg 1,000 mg PO QAM 05/28/22 09/23/24 capsule insulin lispro 100 unit/mL 10 unit SUBCUT TID PRN BLOOD SUGARS 01/14/23 09/23/24 subcutaneous pen (Humalog KwikPen (U-100) Insulin) Previous Rx's Medication Instructions Recorded insulin glargine 100 unit/mL (3 See Rx Instructions .Route 12/02/23 mL) subcutaneous pen (Lantus .COMPLEX #15 mL Solostar U-100 Insulin) methenamine hippurate 1 gram tablet See Rx Instructions .Route 05/19/24 .COMPLEX #180 tabs hydrocodone 5 mg-acetaminophen 325 1 tab PO Q6H PRN pain #14 tabs 05/24/24 mg tablet esomeprazole magnesium 40 mg See Rx Instructions .Route 06/09/24 capsule,delayed release .COMPLEX #90 caps nystatin 100,000 unit/gram topical See Rx Instructions .Route 07/11/24 cream .COMPLEX #30 grams atorvastatin 20 mg tablet See Rx Instructions .Route 09/06/24 .COMPLEX #30 tabs lisinopril 10 mg tablet See Rx Instructions .Route 09/06/24 .COMPLEX #60 tabs cefdinir 300 mg capsule 300 mg PO BID 10 days #20 caps 09/23/24 Allergies Allergy/AdvReac Type Severity Reaction Status Date / Time Iodinated Contrast Media Allergy Unknown Unknown Verified 09/29/24 13:08 Review of Systems 2 General: Reports: 10 or more systems reviewed and unremarkable except in HPI and below PFSH ED 2 PFSH: Medical History Chronic kidney disease Nephrolithiasis Peripheral arterial disease Glaucoma GERD (gastroesophageal reflux disease) Degenerative arthritis Chronic acquired lymphedema Hyperlipidemia Type 2 diabetes mellitus Atrial fibrillation Hereditary hemochromatosis HTN (hypertension) Recurrent UTI Surgical History History of colonoscopy (2019) History of esophagogastroduodenoscopy (2019) History of ankle surgery Right ankle fusion H/O lithotripsy x 2 History of bilateral knee replacement History of carpal tunnel surgery of right wrist Hx of hysterectomy Hx of cataract surgery Hx of left breast biopsy Hx laparoscopic cholecystectomy Family History Mother Alzheimer disease Sister Cancer Father Alcohol abuse Daughter CAD (coronary artery disease) Social History Smoking and tobacco/nicotine status: former use of tobacco/nicotine Alcohol intake: never Substance/Drug Use: never Marital status: / Current occupational status: retired and disabled Female Reproductive History: Spontaneous abortions: No Physical Exam 2 Const: COMMON NORMALS: no acute distress, average body habitus, patient oriented x3, no limitations, healthy appearing, alert and well nourished Neck/C-Spine: COMMON NORMALS: no JVD Chest: COMMONS NORMALS: normal inspection of the chest and normal palpation of entire chest wall Resp: COMMON NORMALS: normal respiratory effort, No retractions, No use of accessory muscles and clear to auscultation bilaterally AUSCULTATION: clear to auscultation bilaterally Cardio: COMMON NORMALS: no JVD, regular rate, regular rhythm, S1 normal heart sound present, S2 normal heart sound present, No gallops present (Cardio), No clicks present (Cardio), No murmurs present (Cardio) and No rub (Cardio) R ATE: regular rate RHYTHM: regular rhythm HEART SOUNDS: S1 normal heart sound present and S2 normal heart sound present GI: COMMON NORMALS: Normal to inspection, nondistended, normoactive bowel sounds present, Soft to palpation, non-tender, No hepatosplenomegaly present and no masses PALPATION: Yes Soft to palpation and Yes No hepatosplenomegaly present Neuro: COMMON NORMALS: patient oriented x3 SENSORIUM/ORIENTATION: Yes alert Course 2 Vital Signs: Vital signs: Vital Signs Temperature 98.2 F 09/29/24 13:02 Pulse Rate 63 09/29/24 17:00 Respiratory Rate 16 09/29/24 17:00 Blood Pressure 137/69 09/29/24 17:00 Pulse Oximetry 94 09/29/24 17:00 Oxygen Delivery Me thod Room Air 09/29/24 17:00 MDM - Female Medical Decision Making Patient presents to the ER with complaints of right upper quadrant right flank pain. Patient had lab work done abdomen pelvis CT scan and ultrasound, all of which was essentially benign except probable mass in the left lobe of the liver. They recommended nonemergent liver MRI, as results was discussed with the patient. Patient will be discharged to follow-up with her PCP. We will go ahead and schedule the MRI. Medical Records I reviewed the patient's medical records. Lab Data I reviewed the patient's lab results. 09/29/24 13:39 09/29/24 13:39 Radiology Impressions Abdomen/Pelvis CT 09/29/24 13:24 IMPRESSION: 1. No renal obstruction or ureteral calcification. 2. Mild stranding around the LEFT kidney extending to the adjacent descending colon where there are diverticula. Favor pyelonephritis as a possible etiology. Mild early changes of descending colon diverticulitis cannot be excluded. 3. New area of abnormal attenuation in the LEFT lobe of the liver measures 3.7 x 2.7 cm. Neoplasm is not excluded. Consider evaluation by ultrasound. Differential includes neoplasm or focal hepatic steatosis. 4. Prior cholecystectomy. 5. Extensive atherosclerosis aorta and mesenteric arteries. No GI tract ischemia. Abdomen Ultrasound 09/29/24 14:50 IMPRESSION: 1. Cholecystectomy. 2. Left hepatic lobe suspected 2.8 x 3.4 x 3.7 cm mass, as seen on comparison CT scan. Further evaluation with non-emergent liver MRI is recommended. (Reference: Chary) 3. Hepatic steatosis. REFERENCES: Chary BELL, et al. Management of Incidental Liver Lesions on CT: A White Paper of the ACR Incidental Findings Committee. J Am Giuliano Radiol. 2017;14(11):6365-3907. Laboratory Results WBC 9.84 10^3/uL (3.29-11.43) 09/29/24 13:39 RBC 4.53 10^6/uL (3.85-5.65) 09/29/24 13:39 Hgb 14.40 g/dL (11.27-16.99) 09/29/24 13:39 Hct 44.2 % (36-47) 09/29/24 13:39 MCV 97.6 fl (85-98) 09/29/24 13:39 MCH 31.8 pg (27-33) 09/29/24 13:39 MCHC 32.6 g/dL (30-55) 09/29/24 13:39 RDW 12.3 % (12.1-15.1) 09/29/24 13:39 Plt Count 166 10^3/cmm (157-399) 09/29/24 13:39 MPV 12.2 fL (7.4-10.4) H 09/29/24 13:39 Neut % (Auto) 71.8 % 09/29/24 13:39 Lymph % (Auto) 18.7 % 09/29/24 13:39 Mills % (Auto) 6.8 % 09/29/24 13:39 Eos % (Auto) 1.7 % 09/29/24 13:39 Baso % (Auto) 0.5 % 09/29/24 13:39 Neut # (Auto) 7.06 10^3/uL (1.8-7.7) 09/29/24 13:39 Lymph # (Auto) 1.8 10^3/uL (0.8-4.8) 09/29/24 13:39 Mills # (Auto) 0.7 10^3/uL (0.2-0.9) 09/29/24 13:39 Eos # (Auto) 0.2 10^3/uL (0.0-0.8) 09/29/24 13:39 Baso # (Auto) 0.1 10^3/uL (0.0-0.1) 09/29/24 13:39 Nucleated RBC % (auto) 0 % 09/29/24 13:39 Nucleated RBCs # 0.0 /100WBC 09/29/24 13:39 Sodium 136 mmol/L (136-145) 09/29/24 13:39 Potassium 4.1 mmol/L (3.5-5.1) 09/29/24 13:39 Chloride 102 mmol/L (98-107) 09/29/24 13:39 Carbon Dioxide 22 mmol/L (22-29) 09/29/24 13:39 Anion Gap 16.1 (5-19) 09/29/24 13:39 BUN 18 mg/dL (8-23) 09/29/24 13:39 Creatinine 0.9 mg/dL (0.5-0.9) 09/29/24 13:39 GFR Calculation Not Reportable 09/29/24 13:39 Glucose 168 mg/dL (65-115) H 09/29/24 13:39 Calculated Osmolality 288 mOsm/kg (285-295) 09/29/24 13:39 Calcium 9.1 mg/dL (8.5-10.5) 09/29/24 13:39 Total Bilirubin 0.9 mg/dL (0.15-1.2) 09/29/24 13:39 AST 19 U/L (0-32) 09/29/24 13:39 ALT 17 U/L (0-33) 09/29/24 13:39 Alkaline Phosphatase 107 U/L (35-105) H 09/29/24 13:39 Total Protein 7.0 g/dL (6.6-8.7) 09/29/24 13:39 Albumin 4.2 g/dL (3.5-5.2) 09/29/24 13:39 Globulin 2.8 g/dL (1.3-4.6) 09/29/24 13:39 Urine Color Yellow (Yellow) 09/29/24 13:49 Urine Appearance Clear (CLEAR) 09/29/24 13:49 Urine pH 5.5 (5-7) 09/29/24 13:49 Ur Specific [place] 1.013 (1.005-1.030) 09/29/24 13:49 Urine Protein Negative (Negative) 09/29/24 13:49 Urine Glucose (UA) Negative (Normal) 09/29/24 13:49 Urine Ketones Negative (Negative) 09/29/24 13:49 Urine Blood Negative (Negative) 09/29/24 13:49 Urine Nitrate Negative (Negative) 09/29/24 13:49 Urine Bilirubin Negative (Negative) 09/29/24 13:49 Urine Urobilinogen 0.2 mg/dL (Negative) 09/29/24 13:49 Ur Leukocyte Esterase Trace (Negative) A 09/29/24 13:49 Urine RBC 0-2 /hpf (0-2) 09/29/24 13:49 Urine WBC 0-5 /hpf (0-5) 09/29/24 13:49 Ur Squamous Epith Cells 0-5 /hpf (0-5) 09/29/24 13:49 Amorphous Sediment Not Reportable 09/29/24 13:49 Urine Bacteria None seen /hpf (NONE) 09/29/24 13:49 Hyaline Casts 0.81 /lpf 09/29/24 13:49 All radiology interpretation(s) finalized by discharge Discharge Plan Discharge Patient Disposition: Home Clinical Impression: Abdominal wall pain in right flank, Liver mass, left lobe Condition: Stable Prescriptions: No Action aspirin [Adult Aspirin Regimen] 81 mg tablet,delayed release (DR/EC) 81 mg PO QAM cholecalciferol (vitamin D3) 10 mcg (400 unit) capsule 10 mcg PO QAM insulin lispro [Humalog KwikPen Insulin] 100 unit/mL insulin pen 10 unit SUBCUT TID PRN (Reason: BLOOD SUGARS) Hold Instructions: Doctor's Order acetaminophen [Tylenol] 325 mg tablet 325 mg PO QID PRN (Reason: Pain) cefdinir 300 mg capsule 300 mg PO BID 10 Days Qty: 20 0RF omega-3 fatty acids 1,000 mg capsule 1,000 mg PO QAM insulin glargine [Lantus Solostar U-100 Insulin] 100 unit/mL (3 mL) insulin pen See Rx Instructions .ROUTE .COMPLEX Qty: 15 12RF Dose Instruction: INJECT 30 UNITS SUBCUTANEOUSLY TWICE DAILY Rx Instructions: INJECT 30 UNITS SUBCUTANEOUSLY TWICE DAILY methenamine hippurate 1 gram tablet See Rx Instructions .ROUTE .COMPLEX Qty: 180 1RF Dose Instruction: TAKE 1 TABLET BY MOUTH TWICE DAILY with 1000mg of vitamin c Rx Instructions: TAKE 1 TABLET BY MOUTH TWICE DAILY with 1000mg of vitamin c esomeprazole magnesium 40 mg capsule,delayed release(DR/EC) See Rx Instructions .ROUTE .COMPLEX Qty: 90 0RF Dose Instruction: take 1 capsule BY MOUTH EVERY DAY Rx Instructions: take 1 capsule BY MOUTH EVERY DAY nystatin 100,000 unit/gram cream See Rx Instructions .ROUTE .COMPLEX Qty: 30 2RF Dose Instruction: apply topically EVERY DAY Rx Instructions: apply topically EVERY DAY lisinopril 10 mg tablet See Rx Instructions .ROUTE .COMPLEX Qty: 60 0RF Dose Instruction: TAKE 1 TABLET BY MOUTH TWICE DAILY Rx Instructions: TAKE 1 TABLET BY MOUTH TWICE DAILY atorvastatin 20 mg tablet See Rx Instructions .ROUTE .COMPLEX Qty: 30 0RF Dose Instruction: TAKE 1 TABLET BY MOUTH AT BEDTIME Rx Instructions: TAKE 1 TABLET BY MOUTH AT BEDTIME hydrocodone-acetaminophen 5-325 mg tablet 1 tab PO Q6H PRN (Reason: pain) Qty: 14 0RF Discharge Orders: Discharge ED (Routine); Ordered 09/29/24 Ordered By: Isaak Shelton Referrals: Nehemias Cotto DO [Primary Care Provider] - 1 week Patient Instructions: Abdominal Pain (ED) Activity Restrictions/Additional Instructions: Your evaluation ER with lab work, CT scan and ultrasound showed you have a liver mass, this needs to be further imaged with an MRI. You have been referred to case management to help schedule this they should be calling you in the morning to arrange this. Otherwise continue on your antibiotics you are currently taking and follow-up with your family practice physician within the next 7 to 10 days for further evaluation and treatment. Coding Level of Care Code ED Health Administrator for Rk Gonzalez
[2024-09-29 14:06] LABS: Alanine Aminotransferase 17 U/L (0-33); Albumin Level 4.2 g/dL (3.5-5.2); Alkaline Phosphatase 107 U/L (35-105); Anion Gap 16.1 (5-19); Aspartate Amino Transferase 19 U/L (0-32); Blood Urea Nitrogen 18 mg/dL (8-23); Calcium 9.1 mg/dL (8.5-10.5); Carbon Dioxide 22 mmol/L (22-29); Chloride 102 mmol/L (98-107); Creatinine Clr Calc Pharmacy 49.9135; Globulin 2.8 g/dL (1.3-4.6); Glucose 168 mg/dL (65-115); Osmolality Calculated 288 mOsm/kg (285-295); Potassium 4.1 mmol/L (3.5-5.1); Sodium 136 mmol/L (136-145); Total Bilirubin 0.9 mg/dL (0.15-1.2)
[2024-09-29 14:20] LABS: Bilirubin Urine Negative (Negative); Blood Urine Negative (Negative); Glucose Urine UA Negative (Normal); Ketones Urine Negative (Negative); Leukocyte Esterase Urine Trace (Negative); Nitrate Urine Negative (Negative); Protein Urine Negative (Negative); Specific Gravity, Urine 1.013 (1.005-1.030); Urine Appearance Clear (CLEAR); Urine Color Yellow (Yellow); Urobilinogen Urine 0.2 mg/dL (Negative); pH Urine 5.5 (5-7)
[2024-09-29 14:23] LABS: Add Urine Microscopic? YES; Bacteria Urine None Seen /hpf; Hyaline Casts Urine 0.81 /lpf; RBC Urine 0-2 /hpf (0-2); Squamous Epithelial Cell Urine 0-5 /hpf (0-5); WBC Urine 0-5 /hpf (0-5)
--- NOTE | 2024-09-29 14:50 | USR_ITS ---
PROCEDURE INFORMATION: Exam: US Abdomen, Limited; Right Upper Quadrant Exam date and time: 09/29/2024 3:37 PM Age: 83 years old Clinical indication: Abdominal tenderness; Additional info: Ruq/flank pain, abn CT of liver today TECHNIQUE: Imaging protocol: Real time ultrasound of the abdomen with image documentation. Limited exam focused on the right upper quadrant. COMPARISON: CT kidney stone [id number] 09/29/2024 2:05 PM FINDINGS: Liver: Left hepatic lobe suspected 2.8 x 3.4 x 3.7 cm mass, as seen on comparison CT scan. Hepatic steatosis. Gallbladder: Cholecystectomy. Biliary ducts: Normal. No stones. No dilation. Pancreas: Visualized pancreas is unremarkable. Right kidney: Normal. No mass. No hydronephrosis. US/US abdomen limited [id number] IMPRESSION: 1. Cholecystectomy. 2. Left hepatic lobe suspected 2.8 x 3.4 x 3.7 cm mass, as seen on comparison CT scan. Further evaluation with non-emergent liver MRI is recommended. (Reference: Chary) 3. Hepatic steatosis. REFERENCES: Chary BELL, et al. Management of Incidental Liver Lesions on CT: A White Paper of the ACR Incidental Findings Committee. J Am Giuliano Radiol. 2017;14(11):3297-8668.
[2024-09-29 14:57] VITALS: BP 112/54; PULSE 61; RESP 16; O2SAT 95
[2024-09-29 15:00] VITALS: BP 131/51; PULSE 63; RESP 15; O2SAT 94
[2024-09-29 16:00] VITALS: BP 156/58; PULSE 64; O2SAT 95
[2024-09-29 17:00] VITALS: BP 137/69; PULSE 63; RESP 16; O2SAT 94
--- NOTE | 2024-09-29 17:06 | PC.NURSE ---
this nurse assumed pt care at 1700 from Eri SIMON.
[2024-09-29 19:11] VITALS: BP 140/62; PULSE 68; RESP 16; O2SAT 96
--- NOTE | 2024-09-30 15:11 | DCPLANNER ---
faxed mri order to scheduling for er f/u
== END 2024-09-29 19:11 | disposition home or self-care (01) ==
PROVIDERS: Emergency Provider Emergency Medicine; PCP Family Medicine
DX: R10.9 Unspecified abdominal pain (principal); R16.0 Hepatomegaly, not elsewhere classified; Z79.82 Long term (current) use of aspirin; Z79.4 Long term (current) use of insulin; Z87.891 Personal history of nicotine dependence; E11.22 Type 2 diabetes mellitus with diabetic chronic kidney disease; I12.9 Hypertensive chronic kidney disease with stage 1 through stage 4 chronic kidney disease, or unspecified chronic kidney disease; N18.9 Chronic kidney disease, unspecified
CPT/HCPCS: 74176; 76705; 80053; 81001; 85025; 99284

== ENCOUNTER 2024-10-18 14:00 | Outpatient (CLI) | payer MEDICARE, MEDICAID, SELFPAY ==
--- NOTE | 2024-10-18 14:08 | MRR_ITS ---
PROCEDURE INFORMATION: Exam: MR Abdomen Without and With Contrast; Liver Exam date and time: 10/18/2024 2:44 PM Age: 83 years old Clinical indication: Mass, lump, or swelling; Ruq; Patient HX: Hemochromatosis; Additional info: Liver mass TECHNIQUE: Imaging protocol: MR Abdomen with and without intravenous contrast. Exam focused on the liver. Contrast material: MULTIHANCE; Contrast volume: 20 ml; Contrast route: INTRAVENOUS (IV); COMPARISON: CT kidney stone [id number] 09/29/2024 2:05 PM FINDINGS: Please note that only 5 minute postcontrast sequences provided. Liver: Normal morphology.In the left hepatic lobe in segment II there is a well demarcated 3.1 x 3.8 cm T1 hypointense and T2 stealth lesion. There is a focus along the periphery of the lesion that contains fat. There are areas of septate like enhancement at 5 minutes within the lesion which may be related to a fibrous scar. Additional postcontrast sequences were not identified to assess for dynamic enhancement of the lesion.Additional lesion identified with intermediate T2 signal with peripheral enhancement in segment III. Seen on image 16 of series 501. Gallbladder and biliary ducts: Gallbladder is surgically absent. Pancreas: Normal. Kidneys: Area of scarring involving the lower pole of the right kidney. Intraperitoneal space: No free fluid. Lymph nodes: No enlarged nodes. Bones/joints: Scoliotic curvature of the lumbar spine with multilevel degenerative changes. There appear to be endplate Modic type changes involving the superior endplate of L2.. Other findings: MR/MR abdomen wo/w con* [id number] IMPRESSION: Please note limitation of the examination due to only a 5 minute postcontrast sequence provided. 1. Left hepatic lobe well demarcated lesion in segment 2 with internal septate like enhancement and internal fat content. Findings may relate to either focal nodular hyperplasia or hepatic adenoma. Hepatocellular carcinoma is less likely given the fact that there is no background of cirrhosis. Neoplastic process such as metastases is not excluded. The patient may require image guided biopsy for confirmatory diagnosis. Alternatively a repeat MRI of the liver can be performed utilizing Eovist contrast. 2. Additional indeterminate lesion in segment 3 demonstrates intermediate T2 signal with peripheral enhancement. This may relate to a small hemangioma. Attention on follow-up studies.
[2024-10-18] MEDS: gadobenate dimeglumine 20 mL vial 19 ML IV (15:07)
== END 2024-10-18 14:01 | disposition home or self-care (01) ==
LOC: RAD 14:01
PROVIDERS: PCP Family Medicine; Visit Provider Family Medicine
DX: K76.9 Liver disease, unspecified (principal); R16.0 Hepatomegaly, not elsewhere classified; Z90.49 Acquired absence of other specified parts of digestive tract
CPT/HCPCS: 74183; A9577

== ENCOUNTER 2024-11-01 13:51 | Emergency (ER) | payer MEDICARE, MEDICAID, SELFPAY ==
[2024-11-01 13:54] VITALS: BP 115/58; PULSE 79; RESP 18; TEMP 36.8; O2SAT 94; BMI 37.7
--- NOTE | 2024-11-01 13:58 | ED_ITS ---
HPI - General Adult 2 General: Chief complaint: Nausea/Vomiting/Diarrhea Stated complaint: N/V Time Seen by Provider: 11/01/24 13:54 Source: patient and EMS Mode of arrival: EMS Limitations: no limitations History of Present Illness: 84-year-old female states she been havin g vomiting throughout the day states that started early this morning his head multiple episodes that the last 1 was around noon. She denies any pain currently she states she gets an abdominal cramping pain before she vomits she denies any fever denies any diarrhea Associated symptoms: Reports nausea and vomiting; Deny chest pain, dyspnea, headache(s) or rash Related Data Home Medications Medication Instructions Recorded Confirmed aspirin 81 mg tablet,delayed 81 mg PO QAM 09/24/20 11/01/24 release (Adult Aspirin Regimen) cholecalciferol (vitamin D3) 10 10 mcg PO QAM 09/24/20 11/01/24 mcg (400 unit) capsule acetaminophen 325 mg tablet 325 mg PO QID PRN Pain 08/21/21 11/01/24 (Tylenol) atorvastatin 20 mg tablet 20 mg PO QPM 11/01/24 11/01/24 esomeprazole magnesium 40 mg 40 mg PO DAILY 11/01/24 11/01/24 capsule,delayed release insulin glargine 100 unit/mL (3 30 unit SUBCUT BID 11/01/24 11/01/24 mL) subcutaneous pen (Lantus Solostar U-100 Insulin) lisinopril 10 mg tablet 10 mg PO BID 11/01/24 11/01/24 methenamine hippurate 1 gram tablet 1 g PO BID 11/01/24 11/01/24 Previous Rx's Medication Instructions Recorded cyclobenzaprine 5 mg tablet 10 mg (2 x 5 mg) PO TID PRN muscle 10/19/24 spasm #20 tabs hydrocodone 5 mg-acetaminophen 325 1 tab PO Q6H PRN pain 7 days #20 10/19/24 mg tablet tabs cephalexin 500 mg capsule 500 mg PO TID 7 days #21 caps 11/01/24 ondansetron 4 mg disintegrating 4 mg PO Q6H PRN nausea and 11/01/24 tablet vomiting #14 tabs Allergies Allergy/AdvReac Type Severity Reaction Status Date / Time Iodinated Contrast Media Allergy Unknown Unknown Verified 10/19/24 13:58 Review of Systems 2 Const: Denies: fever(s), chills, body aches or change in appetite ENMT: Denies: throat pain or dental pain Card: Denies: chest pain Resp: Denies: dyspnea GI: Reports: nausea and vomiting; Denies: diarrhea Musc: Denies: neck pain or back pain Skin/Breast: Denies: rash Neuro: Denies: headache(s) PFSH ED 2 PFSH: Medical History Chronic pain Liver mass Chronic kidney disease Nephrolithiasis Peripheral arterial disease Glaucoma GERD (gastroesophageal reflux disease) Degenerative arthritis Chronic acquired lymphedema Hyperlipidemia Type 2 diabetes mellitus Atrial fibrillation Hereditary hemochromatosis HTN (hypertension) Recurrent UTI Surgical History Status post YAG capsulotomy of both eyes History of colonoscopy (2019) History of esophagogastroduodenoscopy (2019) History of ankle surgery Right ankle fusion H/O lithotripsy x 2 History of bilateral knee replacement History of carpal tunnel surgery of right wrist Hx of hysterectomy Hx of cataract surgery Hx of left breast biopsy Hx laparoscopic cholecystectomy Family History Mother Alzheimer disease Sister Cancer Father Alcohol abuse Daughter CAD (coronary artery disease) Social History Smoking and tobacco/nicotine status: never used tobacco/nicotine Alcohol intake: never Substance/Drug Use: never Marital status: / Current occupational status: retired and disabled Female Reproductive History: Spontaneous abortions: No Physical Exam 2 Const: COMMON NORMALS: no acute distress, patient oriented x3 and healthy appearing HENMT: COMMON NORMALS: normocephalic and atraumatic HEAD & SCALP: n ormocephalic and atraumatic Eye: COMMON NORMALS: conjunctivae normal CONJUNCTIVA: Yes conjunctivae normal Neck/C-Spine: COMMON NORMALS: full ROM and supple Chest: COMMONS NORMALS: normal inspection of the chest Resp: COMMON NORMALS: normal respiratory effort, No retractions, No use of accessory muscles and clear to auscultation bilaterally AUSCULTATION: clear to auscultation bilaterally Cardio: COMMON NORMALS: regular rate, regular rhythm and No murmurs present (Cardio) RATE: regular rate RHYTHM: regular rhythm GI: COMMON NORMALS: Normal to inspection, nondistended, normoactive bowel sounds present, Soft to palpation, non-tender and no masses PALPATION: Yes Soft to palpation Extremity: COMMON NORMALS: normal to inspection and full ROM Neuro: COMMON NORMALS: patient oriented x3, moves all extremities and no focal motor deficits Psych: COMMON NORMALS: mental status grossly normal, Normal thought process present and cooperative THOUGHT PROCESS: Normal thought process present Skin: COMMON NORMALS: no rashes or lesions noted and no wounds GENERAL SKIN EXAM: no rashes or lesions noted Course 2 Vital Signs: Vital signs: Vital Signs Temperature 98.2 F 11/01/24 13:54 Pulse Rate 79 11/01/24 13:54 Respiratory Rate 18 11/01/24 14:17 Blood Pressure 115/58 11/01/24 13:54 Pulse Oximetry 94 11/01/24 13:54 Oxygen Delivery Me thod Room Air 11/01/24 13:54 MDM - General Adult Medical Decision Making Patient presents here with vomiting she has had no abdominal pain here she does have acute cystitis she feels much improved here after Zofran's been able to tolerate p.o. I did offer admission she states she feels improved like to trial oral antibiotics first did give her dose of IV antibiotics here we will prescribe. Zofran and Keflex she is to follow-up with PCP and return if worsening. Medical Records I reviewed the patient's medical records. Lab Data I reviewed the patient's lab results. 11/01/24 14:10 11/01/24 14:10 Radiology Impressions Abdomen/Pelvis CT 11/01/24 14:26 IMPRESSION: 1. No acute findings. 2. 4 cm right hepatic mass, etiology unknown. This is also been examined with an MRI of the abdomen on 10/18/2024. COMMENTS: Consistent with the [employer]'s Incidental Findings Committee white paper (J Am Giuliano Radiol 2018): Any incidental renal lesion less than 1 cm or classified as too small to characterize, or any incidental cystic renal lesion characterized as simple-appearing, is likely benign. No follow-up imaging is recommended for these lesions per consensus recommendations based on imaging criteria. Laboratory Results WBC 19.62 10^3/uL (3.29-11.43) H 11/01/24 14:10 RBC 4.38 10^6/uL (3.85-5.65) 11/01/24 14:10 Hgb 13.70 g/dL (11.27-16.99) 11/01/24 14:10 Hct 43.1 % (36-47) 11/01/24 14:10 MCV 98.4 fl (85-98) H 11/01/24 14:10 MCH 31.3 pg (27-33) 11/01/24 14:10 MCHC 31.8 g/dL (30-55) 11/01/24 14:10 RDW 12.7 % (12.1-15.1) 11/01/24 14:10 Plt Count 189 10^3/cmm (157-399) 11/01/24 14:10 MPV 11.5 fL (7.4-10.4) H 11/01/24 14:10 Neut % (Auto) 89.1 % 11/01/24 14:10 Lymph % (Auto) 4.4 % 11/01/24 14:10 [place] % (Auto) 5.3 % 11/01/24 14:10 Eos % (Auto) 0.0 % 11/01/24 14:10 Baso % (Auto) 0.3 % 11/01/24 14:10 Neut # (Auto) 17.50 10^3/uL (1.8-7.7) H 11/01/24 14:10 Lymph # (Auto) 0.9 10^3/uL (0.8-4.8) 11/01/24 14:10 [place] # (Auto) 1.0 10^3/uL (0.2-0.9) H 11/01/24 14:10 Eos # (Auto) 0.0 10^3/uL (0.0-0.8) 11/01/24 14:10 Baso # (Auto) 0.1 10^3/uL (0.0-0.1) 11/01/24 14:10 Nucleated RBC % (auto) 0 % 11/01/24 14:10 Nucleated RBCs # 0.0 /100WBC 11/01/24 14:10 Sodium 135 mmol/L (136-145) L 11/01/24 14:10 Potassium 4.8 mmol/L (3.5-5.1) 11/01/24 14:10 Chloride 100 mmol/L (98-107) 11/01/24 14:10 Carbon Dioxide 21 mmol/L (22-29) L 11/01/24 14:10 Anion Gap 18.8 (5-19) 11/01/24 14:10 BUN 22 mg/dL (8-23) 11/01/24 14:10 Creatinine 1.2 mg/dL (0.5-0.9) H 11/01/24 14:10 GFR Calculation Not Reportable 11/01/24 14:10 Glucose 164 mg/dL (65-115) H 11/01/24 14:10 Calculated Osmolality 287 mOsm/kg (285-295) 11/01/24 14:10 Calcium 9.6 mg/dL (8.5-10.5) 11/01/24 14:10 Total Bilirubin 1.6 mg/dL (0.15-1.2) H 11/01/24 14:10 AST 17 U/L (0-32) 11/01/24 14:10 ALT 16 U/L (0-33) 11/01/24 14:10 Alkaline Phosphatase 107 U/L (35-105) H 11/01/24 14:10 Total Protein 6.7 g/dL (6.6-8.7) 11/01/24 14:10 Albumin 3.6 g/dL (3.5-5.2) 11/01/24 14:10 Globulin 3.1 g/dL (1.3-4.6) 11/01/24 14:10 Lipase 58 U/L (13-60) 11/01/24 14:10 Urine Color Yellow (Yellow) 11/01/24 14:30 Urine Appearance Cloudy (CLEAR) A 11/01/24 14:30 Urine pH 5.5 (5-7) 11/01/24 14:30 Ur Specific [place] 1.014 (1.005-1.030) 11/01/24 14:30 Urine Protein Trace (Negative) A 11/01/24 14:30 Urine Glucose (UA) Negative (Normal) 11/01/24 14:30 Urine Ketones Negative (Negative) 11/01/24 14:30 Urine Blood Negative (Negative) 11/01/24 14:30 Urine Nitrate Positive (Negative) A 11/01/24 14:30 Urine Bilirubin Negative (Negative) 11/01/24 14:30 Urine Urobilinogen 1.0 mg/dL (Negative) 11/01/24 14:30 Ur Leukocyte Esterase 3+ (Negative) A 11/01/24 14:30 Urine RBC 0-2 /hpf (0-2) 11/01/24 14:30 Urine WBC >100 /hpf (0-5) H 11/01/24 14:30 Ur Squamous Epith Cells 11-20 /hpf (0-5) 11/01/24 14:30 Amorphous Sediment Not Reportable 11/01/24 14:30 Urine Bacteria 4+ /hpf (NONE) H 11/01/24 14:30 Hyaline Casts 7.01 /lpf 11/01/24 14:30 No radiology studies performed this visit Discharge Plan Discharge Patient Disposition: Home Clinical Impression: Acute cystitis, Vomiting Condition: Stable Prescriptions: New cephalexin 500 mg capsule 500 mg PO TID 7 Days Qty: 21 0RF ondansetron 4 mg tablet,disintegrating 4 mg PO Q6H PRN (Reason: nausea and vomiting) Qty: 14 0RF No Action aspirin [Adult Aspirin Regimen] 81 mg tablet,delayed release (DR/EC) 81 mg PO QAM cholecalciferol (vitamin D3) 10 mcg (400 unit) capsule 10 mcg PO QAM acetaminophen [Tylenol] 325 mg tablet 325 mg PO QID PRN (Reason: Pain) hydrocodone-acetaminophen 5-325 mg tablet 1 tab PO Q6H PRN (Reason: pain) 7 Days Qty: 20 0RF cyclobenzaprine 5 mg tablet 10 mg PO TID PRN (Reason: muscle spasm) Qty: 20 0RF atorvastatin 20 mg tablet 20 mg PO QPM Rx Instructions: TAKE 1 TABLET BY MOUTH AT BEDTIME methenamine hippurate 1 gram tablet 1 g PO BID Rx Instructions: TAKE 1 TABLET BY MOUTH TWICE DAILY with 1000mg of vitamin c esomeprazole magnesium 40 mg capsule,delayed release(DR/EC) 40 mg PO DAILY lisinopril 10 mg tablet 10 mg PO BID Rx Instructions: TAKE 1 TABLET BY MOUTH TWICE DAILY insulin glargine [Lantus Solostar U-100 Insulin] 100 unit/mL (3 mL) insulin pen 30 unit SUBCUT BID Rx Instructions: INJECT 30 UNITS SUBCUTANEOUSLY TWICE DAILY Discharge Orders: Discharge ED (Routine); Ordered 11/01/24 Ordered By: Damián Garcia Referrals: Unruly López MD [Primary Care Provider] - 4-7 days Discharge Diet: Advance as tolerated Discharge Activity: Resume usual activity Patient Instructions: Urinary Tract Infection in Women (ED), Acute Nausea and Vomiting (ED) Coding Level of Care Code ED Horologist Apprentice for Rk Gonzalez
[2024-11-01] MEDS: ondansetron 2 mg/ML SDV 2 mL 4 MG IVP (14:16)
[2024-11-01 14:17] VITALS: RESP 18
[2024-11-01 14:21] LABS: Basophils # 0.1 10^3/uL (0.0-0.1); Basophils % 0.3 %; Hematocrit 43.1 % (36-47); Lymphocytes # 0.9 10^3/uL (0.8-4.8); Lymphocytes % 4.4 %; Mean Corpuscular HGB Conc 31.8 g/dL (30-55); Mean Corpuscular Hemoglobin 31.3 pg (27-33); Mean Corpuscular Volume 98.4 fl (85-98); Mean Platelet Volume 11.5 fL (7.4-10.4); Monocytes % 5.3 %; Neutrophils % 89.1 %; Nucleated Red Blood Cells % 0 %; Platelet Count 189 10^3/cmm (157-399); Red Blood Count 4.38 10^6/uL (3.85-5.65); Red Cell Distribution Width 12.7 % (12.1-15.1); White Blood Count 19.62 10^3/uL (3.29-11.43)
--- NOTE | 2024-11-01 14:26 | CTR_ITS ---
PROCEDURE INFORMATION: Exam: CT Abdomen And Pelvis With Contrast Exam date and time: 11/01/2024 3:09 PM Age: 84 years old Clinical indication: Vomiting TECHNIQUE: Imaging protocol: Computed tomography of the abdomen and pelvis with contrast. Radiation optimization: All CT scans at this facility use at least one of these dose optimization techniques: automated exposure control; mA and/or kV adjustment per patient size (includes targeted exams where dose is matched to clinical indication); or iterative reconstruction. Contrast material: OMNI 350; Contrast volume: 100 ml; Contrast route: INTRAVENOUS (IV); COMPARISON: MR abdomen wo/w con* [id number] 10/18/2024 2:44 PM RADIATION DOSE METRICS: Total DLP (mGy-cm): 821.55 FINDINGS: Diaphragm: Small hiatal hernia. Liver: 3.5 x 4 cm slightly heterogeneous mass in the left lobe of the liver. This is not classic for any particular lesion. Also see discussion based on MRI from 10/18/2024. Small hepatic cyst. Gallbladder and biliary ducts: Cholecystectomy. Pancreas: Normal. No ductal dilation. Spleen: 12 cm borderline splenomegaly. Adrenal glands: Normal. No mass. Kidneys and ureters: Small right renal cyst. Stomach and bowel: Diverticulosis without evidence of diverticulitis. Appendix: No evidence of appendicitis. Intraperitoneal space: Unremarkable. No free air. No significant fluid collection. Vasculature: Unremarkable. No abdominal aortic aneurysm. Lymph nodes: Unremarkable. No enlarged lymph nodes. Urinary bladder: Unremarkable as visualized. Reproductive: Unremarkable as visualized. Bones/joints: Unremarkable. No acute fracture. Soft tissues: Unremarkable. CT/CT abdomen pelvis w con* [id number] IMPRESSION: 1. No acute findings. 2. 4 cm right hepatic mass, etiology unknown. This is also been examined with an MRI of the abdomen on 10/18/2024. COMMENTS: Consistent with the [employer]'s Incidental Findings Committee white paper (J Am Giuliano Radiol 2018): Any incidental renal lesion less than 1 cm or classified as too small to characterize, or any incidental cystic renal lesion characterized as simple-appearing, is likely benign. No follow-up imaging is recommended for these lesions per consensus recommendations based on imaging criteria.
[2024-11-01] MEDS: diphenhydrAMINE 50 mg/mL SDV 1mL 25 MG IVP (14:37)
[2024-11-01] MEDS: methylPREDNISolone sod succ 40 mg/mL INJ IVP (14:37)
[2024-11-01 14:39] LABS: Alanine Aminotransferase 16 U/L (0-33); Albumin Level 3.6 g/dL (3.5-5.2); Alkaline Phosphatase 107 U/L (35-105); Anion Gap 18.8 (5-19); Aspartate Amino Transferase 17 U/L (0-32); Blood Urea Nitrogen 22 mg/dL (8-23); Calcium 9.6 mg/dL (8.5-10.5); Carbon Dioxide 21 mmol/L (22-29); Chloride 100 mmol/L (98-107); Creatinine Clr Calc Pharmacy 35.5583; Globulin 3.1 g/dL (1.3-4.6); Glucose 164 mg/dL (65-115); Lipase 58 U/L (13-60); Osmolality Calculated 287 mOsm/kg (285-295); Potassium 4.8 mmol/L (3.5-5.1); Sodium 135 mmol/L (136-145); Total Bilirubin 1.6 mg/dL (0.15-1.2); Total Protein 6.7 g/dL (6.6-8.7)
[2024-11-01 14:45] LABS: Bilirubin Urine Negative (Negative); Blood Urine Negative (Negative); Glucose Urine UA Negative (Normal); Ketones Urine Negative (Negative); Leukocyte Esterase Urine 3+ (Negative); Nitrate Urine Positive (Negative); Protein Urine Trace (Negative); Specific Gravity, Urine 1.014 (1.005-1.030); Urine Appearance Cloudy (CLEAR); Urine Color Yellow (Yellow); pH Urine 5.5 (5-7)
[2024-11-01 14:47] LABS: Add Urine Microscopic? YES; Bacteria Urine 4+ /hpf; Hyaline Casts Urine 7.01 /lpf; RBC Urine 0-2 /hpf (0-2); WBC Urine >100 /hpf (0-5)
[2024-11-01] MEDS: iohexol 350 mg/mL 500 mL Btl (per mL) IV (15:11)
[2024-11-01] MEDS: sodium chloride 0.9% 1,000 ML 999 ML IV (15:37)
[2024-11-01] MEDS: cefTRIAXone 1,000 mg SDV 1000 MG IVP (15:37)
[2024-11-01 18:17] VITALS: BP 133/66; PULSE 78; O2SAT 98
== END 2024-11-01 18:18 | disposition home or self-care (01) ==
PROVIDERS: Emergency Provider Emergency Medicine; PCP Family Medicine
DX: N30.00 Acute cystitis without hematuria (principal); R11.10 Vomiting, unspecified; Z79.4 Long term (current) use of insulin; E11.22 Type 2 diabetes mellitus with diabetic chronic kidney disease; I12.9 Hypertensive chronic kidney disease with stage 1 through stage 4 chronic kidney disease, or unspecified chronic kidney disease; N18.9 Chronic kidney disease, unspecified; E78.5 Hyperlipidemia, unspecified
CPT/HCPCS: 36415; 74177; 80053; 81001; 83690; 85025; J0696; J1200; J2405; J2919; J7030

== ENCOUNTER 2024-11-21 10:15 | Day surgery (SDC) | payer MEDICARE, MEDICAID, SELFPAY ==
[2024-11-21] VITALS (7 sets, daily range): BP systolic 111–127; BP diastolic 59–71; PULSE 60–73; RESP 16–23; TEMP 36.1–36.4; O2SAT 98–99; BMI 37.7
--- NOTE | 2024-11-21 11:13 | US_ITS ---
WS: [id number] Ultrasound-Guided Liver Biopsy INDICATION: Liver lesion TECHNIQUE: Prior imaging was reviewed. Timeout was performed. The procedure including risks, benefits, complications were discussed the patient agreed to proceed. Using sterile technique patient was prepped and draped in usual sterile fashion. After 1% lidocaine, using ultrasound guidance, 6 samples were obtained of the hypoechoic lesion with an 18-gauge biopsy d evice. No immediate complications. Anesthesia was present for sedation. Post biopsy imaging for 10 minutes demonstrates no evidence of subcapsular or perilesion hematoma US/US biopsy liver [id number] IMPRESSION: Uncomplicated ultrasound-guided liver lesion biopsy. Pathology is pending.
[2024-11-21] MEDS: sodium chloride 0.9% 500 ML 30 ML IV (11:30)
--- NOTE | 2024-11-21 12:29 | ANES.PREANE2 ---
Pre-Anesthetic Assessment Height/Weight: Height 5 ft Weight 193 lb Preop Diagnosis: Liver mass Operation Date: 11/21/24 13:00 Proposed Procedures p Ultrasound Biopsy(Not Applicable) - DOCTOR NOT ON FILE Was Beta Jamilah taken within 24 hours: N/A Was Clonidine taken within 24 hours: N/A Social No alcohol and No tobacco Exam alert, oriented x 3, clear to auscultation bilaterally and regular rate & rhythm Airway Submandibular: within normal limits Cervical ROM: within normal limits Mallampati: Class II Dentition: false Anesthetic Plan ASA status: 3 Anesthesia: General Other: No prior issues with anesthesia NPO since yesterday History of type 2 diabetes on insulin GERD on Nexium Hypertension on lisinopril Recurrent UTIs Patient uses a wheelchair for ambulation, lives alone Plan for MAC anesthetic Medications/Allergies Home Medications Medication Instructions Recorded Confirmed Last Taken Type aspirin 81 mg tablet,delayed 81 mg PO QAM 09/24/20 11/21/24 11/20/24 History release (Adult Aspirin Regimen) cholecalciferol (vitamin D3) 10 10 mcg PO QAM 09/24/20 11/21/24 11/20/24 History mcg (400 unit) capsule acetaminophen 325 mg tablet 325 mg PO QID PRN Pain 08/21/21 11/21/24 11/01/24 History (Tylenol) cyclobenzaprine 5 mg tablet 10 mg (2 x 5 mg) PO TID PRN muscle 10/19/24 11/21/24 11/01/24 Rx spasm #20 tabs hydrocodone 5 mg-acetaminophen 325 1 tab PO Q6H PRN pain 7 days #20 10/19/24 11/21/24 11/01/24 Rx mg tablet tabs atorvastatin 20 mg tablet 20 mg PO QPM 11/01/24 11/21/24 11/20/24 History esomeprazole magnesium 40 mg 40 mg PO DAILY 11/01/24 11/21/24 11/20/24 History capsule,delayed release (Nexium) insulin glargine 100 unit/mL (3 30 unit SUBCUT BID 11/01/24 11/21/24 11/20/24 History mL) subcutaneous pen (Lantus Solostar U-100 Insulin) lisinopril 10 mg tablet 10 mg PO BID 11/01/24 11/21/24 11/20/24 History methenamine hippurate 1 gram tablet 1 g PO BID 11/01/24 11/21/24 11/17/24 History ondansetron 4 mg disintegrating 4 mg PO Q6H PRN nausea and 11/01/24 11/21/24 Unknown Rx tablet vomiting #14 tabs Allergies Allergy/AdvReac Type Severity Reaction Status Date / Time Iodinated Contrast Media Allergy Unknown Unknown Verified 11/18/24 08:49 PFSH Anesthesia Medical History Chronic pain Liver mass Chronic kidney disease Nephrolithiasis Peripheral arterial disease Glaucoma GERD (gastroesophageal reflux disease) Degenerative arthritis Chronic acquired lymphedema Hyperlipidemia Type 2 diabetes mellitus Atrial fibrillation Hereditary hemochromatosis HTN (hypertension) Recurrent UTI Surgical History Status post YAG capsulotomy of both eyes History of colonoscopy (2018) History of esophagogastroduodenoscopy (2018) History of ankle surgery Right ankle fusion H/O lithotripsy x 2 History of bilateral knee replacement History of carpal tunnel surgery of right wrist Hx of hysterectomy Hx of cataract surgery Hx of left breast biopsy Hx laparoscopic cholecystectomy Family History Mother Alzheimer disease Sister Cancer Father Alcohol abuse Daughter CAD (coronary artery disease) Social History Smoking and tobacco/nicotine status: never used tobacco/nicotine Alcohol intake: never Substance/Drug Use: never Marital status: / Current occupational status: retired and disabled Female Reproductive History Spontaneous abortions: No Data Anesthesia Cardiac Studies: Echocardiogram 09/30/21 Cardiac Event Monitor 08/21/21
[2024-11-21 13:01] LABS: INR 1.04 (0.8-1.2)
== END 2024-11-21 15:11 | disposition home or self-care (01) ==
PROVIDERS: Radiology Neuroradiology; PCP Family Medicine; Visit Provider Family Medicine
DX: R16.0 Hepatomegaly, not elsewhere classified (principal)
CPT/HCPCS: 36415; 47000; 76942; 85610; 88307; J2250; J3010; J7030

== ENCOUNTER 2024-12-16 15:50 | Outpatient (CLI) | payer MEDICARE, MEDICAID, SELFPAY ==
--- NOTE | 2024-12-16 16:00 | PETR_ITS ---
PROCEDURE INFORMATION: Exam: PET/CT Skull Base to Mid-thigh Exam date and time: 12/16/2024 4:53 PM Age: 84 years old Clinical indication: Condition or disease; Primary cancer: Hepatocellular carcinoma; Prior surgery; Surgery date: 6+ months; Surgery type: Kidney stone removal LABS AND CLINICAL REPORTS: Glucose: 111 mg/dl Treatment strategy for malignancy (PET staging): Initial Staging (PI) TECHNIQUE: Imaging protocol: Following at least four-hour fasting and following the injection of radiopharmaceutical, low dose CT images were obtained. Then, PET images were obtained. Attenuation corrected images were constructed using the CT scan. Fused images of PET and CT were reviewed. The standardized uptake values (SUV) reported below are maximum values within a region of interest, expressed in gm/ml. Exam includes orbital meatal line to mid-thigh. SUV normalization method: BodyWeight Radiopharmaceutical: 9.18 mCi F-18 FDG (Fluorodeoxyglucose), IV. Time of imaging post radiopharmaceutical administration: 42 minutes Injection site: RIGHT AC COMPARISON: 1. MR abdomen wo/w con* [id number] 10/18/2024 2:[address] abdomen pelvis w con* [id number] 11/01/2024 3:09 PM FINDINGS: Brain: Visualized brain has normal physiologic uptake. Pharynx: No abnormal uptake. Larynx: No abnormal uptake. Lungs, pleura and trachea: No abnormal uptake. Mild platelike atelectasis versus scarring in the lower lungs. Heart: Normal physiologic uptake. Coronary arteries: Heavy coronary artery calcification. Mediastinal space: No abnormal uptake. Diaphragm: Small hiatal hernia. Liver: No abnormal uptake. Redemonstrated subtle 4.5 cm hypodensity at left hepatic lobe without abnormal uptake, axial image 182. Redemonstrated 1.1 cm anterior subcapsular hypodensity at the left lower liver with mild capsular retraction and no abnormal uptake, axial image 171. Gallbladder and biliary ducts: No abnormal uptake. Prior cholecystectomy. Pancreas: No abnormal uptake. Spleen: No abnormal uptake. Adrenal glands: No abnormal uptake. Kidneys and ureters: Mild left renal atrophy and relative decreased uptake without FDG uptake visualized within the renal pelvis or ureter. Normal physiologic uptake on the right. Stomach and bowel: Colonic diverticulosis. Focal FDG uptake at the sigmoid colon showing SUV max 7.1 on axial image 92 appears to be associated with a diverticulum with suggested mild wall thickening. Reproductive: The uterus is surgically absent. Vasculature: No abnormal uptake. Heavy systemic atherosclerotic calcification without aortic aneurysm. Lymph nodes: No abnormal uptake. No lymphadenopathy in the head, neck, chest, abdomen, pelvis, and extremities. Skeleton: Mild thoracolumbar spine levoconvex spinal curvature. Degenerative change along the axial and imaged proximal appendicular skeletal system. Bilateral glenohumeral joint periarticular FDG uptake is likely inflammatory/degenerative. Mild FDG uptake adjacent to the right greater trochanter likely represents gluteal tendinopathy. Soft tissues: No abnormal uptake in the visualized head, neck, chest, abdomen, pelvis, and extremities. Small fat containing umbilical hernia. METRICS: Mediastinal blood pool: SUV mean 2.8 Liver uptake: SUV mean 3.8 PET/PET skull to thigh INIT [id number] IMPRESSION: 1. Subtle 4.5 cm hypodensity at left hepatic lobe without abnormal uptake may represent reported hepatocellular carcinoma, correlate with biopsy results. 2. 1.1 cm anterior subcapsular hypodense lesion at the left lower liver without abnormal uptake, see comparison MRI. 3. Focal FDG uptake at the sigmoid colon associated with a diverticulum with suggested mild wall thickening is likely inflammatory, possibly early developing diverticulitis. Malignancy not entirely excluded. 4. Mild left renal atrophy and relative decreased uptake suggestive of chronic dysfunction. 5. Additional chronic and incidental findings as above, to include atherosclerosis with heavy coronary artery calcification.
== END 2024-12-16 15:51 | disposition home or self-care (01) ==
LOC: RAD 15:50
PROVIDERS: PCP Family Medicine; Visit Provider Family Medicine
DX: C22.0 Liver cell carcinoma (principal); R91.8 Other nonspecific abnormal finding of lung field; Z98.890 Other specified postprocedural states; N26.1 Atrophy of kidney (terminal); I70.0 Atherosclerosis of aorta; K44.9 Diaphragmatic hernia without obstruction or gangrene; R93.2 Abnormal findings on diagnostic imaging of liver and biliary tract; Z90.49 Acquired absence of other specified parts of digestive tract; R93.422 Abnormal radiologic findings on diagnostic imaging of left kidney; K57.30 Diverticulosis of large intestine without perforation or abscess without bleeding; M43.8X5 Other specified deforming dorsopathies, thoracolumbar region; R93.89 Abnormal findings on diagnostic imaging of other specified body structures; K42.9 Umbilical hernia without obstruction or gangrene
CPT/HCPCS: 78815; A9552

== ENCOUNTER 2024-12-28 12:56 | Oncology outpatient (recurring) (ONCR) | payer MEDICARE, MEDICAID, SELFPAY ==
[2024-12-28 15:07] LABS: Reticulocyte % 2.1 % (0.5-2.0)
[2024-12-28 15:08] LABS: Basophils # 0.1 10^3/uL (0.0-0.1); Basophils % 0.7 %; Eosinophils # 0.3 10^3/uL (0.0-0.8); Eosinophils % 4.4 %; Hematocrit 39.4 % (36-47); INR 0.97 (0.8-1.2); Lymphocytes # 2.1 10^3/uL (0.8-4.8); Lymphocytes % 30.9 %; Mean Corpuscular HGB Conc 31.7 g/dL (30-55); Mean Corpuscular Hemoglobin 31.4 pg (27-33); Monocytes # 0.6 10^3/uL (0.2-0.9); Monocytes % 8.7 %; Neutrophils # 3.74 10^3/uL (1.8-7.7); Nucleated Red Blood Cells % 0 %; Platelet Count 147 10^3/cmm (157-399); Red Blood Count 3.98 10^6/uL (3.85-5.65); Red Cell Distribution Width 13.2 % (12.1-15.1)
[2024-12-28 15:09] LABS: Partial Thromboplastin Time 24.9 SECONDS (23.9-36.7)
[2024-12-28 15:15] LABS: Erythrocyte Sedimentation Rate 8 mm/hr (0-15)
[2024-12-28 15:31] LABS: Tumor Marker Alpha Fetoprotein 2.4 ng/mL (0-8.3)
[2024-12-28 15:42] LABS: Alanine Aminotransferase 19 U/L (0-33); Albumin Level 4.1 g/dL (3.5-5.2); Alkaline Phosphatase 92 U/L (35-105); Anion Gap 17.5 (5-19); Aspartate Amino Transferase 21 U/L (0-32); Blood Urea Nitrogen 41 mg/dL (8-23); C Reactive Protein 3.9 mg/L (0.0-4.9); Calcium 9.3 mg/dL (8.5-10.5); Carbon Dioxide 22 mmol/L (22-29); Chloride 105 mmol/L (98-107); Globulin 2.6 g/dL (1.3-4.6); Glucose 121 mg/dL (65-115); Lactate Dehydrogenase 172 U/L (135-214); Osmolality Calculated 301 mOsm/kg (285-295); Potassium 4.5 mmol/L (3.5-5.1); Sodium 140 mmol/L (136-145); Total Bilirubin 0.7 mg/dL (0.15-1.2); Total Protein 6.7 g/dL (6.6-8.7)
[2024-12-28 15:45] LABS: Hepatitis B Core AB, Total Non-Reactive (Nonreactive); Hepatitis B Surface AB < 3.5 (11.5-1000); Hepatitis C Virus Antibody Non-Reactive (Nonreactive)
[2024-12-28 15:58] LABS: Ferritin 233 ng/mL (15-150); Iron 162 ug/dL (37-145); Total Iron Binding Capacity 180 mcg/dl; Unsaturated Iron Binding 18 ug/dL (112-347)
[2024-12-28 17:01] LABS: Hepatitis B Surface Antigen Non-Reactive (Nonreactive)
== END 2024-12-30 23:59 | disposition home or self-care (01) ==
PROVIDERS: PCP Family Medicine; Visit Provider Internal Medicine
DX: C22.0 Liver cell carcinoma (principal); E83.110 Hereditary hemochromatosis; E11.9 Type 2 diabetes mellitus without complications; Z79.4 Long term (current) use of insulin
CPT/HCPCS: 36415; 80053; 82105; 82728; 83010; 83540; 83550; 83615; 85025; 85045; 85610; 85651; 85730; 86140; 86704; 86706; 86803; 87340; 99214

== ENCOUNTER → 2025-02-27 15:13 | Outpatient (BNVA) | payer MEDICARE, MEDICAID, SELFPAY | PROVIDERS: PCP Family Medicine; Visit Provider Nurse Practitioner Family | DX: S50.912A Unspecified superficial injury of left forearm, initial encounter (principal); L73.8 Other specified follicular disorders; L82.1 Other seborrheic keratosis; L57.8 Other skin changes due to chronic exposure to nonionizing radiation; X32.XXXA Exposure to sunlight, initial encounter; L81.4 Other melanin hyperpigmentation; L82.0 Inflamed seborrheic keratosis; L29.89 Other pruritus; R20.9 Unspecified disturbances of skin sensation; R20.8 Other disturbances of skin sensation; L53.8 Other specified erythematous conditions; L57.0 Actinic keratosis; X58.XXXA Exposure to other specified factors, initial encounter | CPT/HCPCS: 17000; 17110; 99213 ==

== ENCOUNTER → 2025-03-08 08:29 | Outpatient (BNVA) | payer MEDICARE, MEDICAID, SELFPAY | PROVIDERS: PCP Family Medicine; Visit Provider Family Medicine | DX: R39.9 Unspecified symptoms and signs involving the genitourinary system (principal) | CPT/HCPCS: 81000 ==

== ENCOUNTER 2025-03-28 14:30 | Oncology outpatient (recurring) (ONCR) | payer MEDICARE, MEDICAID, SELFPAY ==
[2025-03-09 11:33] LABS: Basophils % 0.7 %; Eosinophils # 0.3 10^3/uL (0.0-0.8); Eosinophils % 4.9 %; Hematocrit 40.2 % (36-47); Lymphocytes # 0.5 10^3/uL (0.8-4.8); Lymphocytes % 8.5 %; Mean Corpuscular HGB Conc 31.3 g/dL (30-55); Mean Corpuscular Hemoglobin 31.4 pg (27-33); Mean Corpuscular Volume 100.2 fl (85-98); Mean Platelet Volume 12.1 fL (7.4-10.4); Monocytes # 0.6 10^3/uL (0.2-0.9); Monocytes % 9.5 %; Neutrophils # 4.45 10^3/uL (1.8-7.7); Neutrophils % 74.6 %; Nucleated Red Blood Cells % 0 %; Platelet Count 143 10^3/cmm (157-399); Red Blood Count 4.01 10^6/uL (3.85-5.65); Red Cell Distribution Width 13.1 % (12.1-15.1); White Blood Count 5.97 10^3/uL (3.29-11.43)
[2025-03-09 12:03] LABS: Alanine Aminotransferase 38 U/L (0-33); Albumin Level 3.8 g/dL (3.5-5.2); Alkaline Phosphatase 223 U/L (35-105); Anion Gap 16.5 (5-19); Aspartate Amino Transferase 43 U/L (0-32); Blood Urea Nitrogen 28 mg/dL (8-23); Calcium 9.3 mg/dL (8.5-10.5); Carbon Dioxide 21 mmol/L (22-29); Chloride 106 mmol/L (98-107); Creatinine Clr Calc Pharmacy 38.7909; Ferritin 335 ng/mL (15-150); Globulin 3.1 g/dL (1.3-4.6); Glucose 113 mg/dL (65-115); Iron 105 ug/dL (37-145); Lactate Dehydrogenase 194 U/L (135-214); Osmolality Calculated 294 mOsm/kg (285-295); Percent Saturation 56.7 % (20-50); Potassium 4.5 mmol/L (3.5-5.1); Sodium 139 mmol/L (136-145); Total Bilirubin 0.8 mg/dL (0.15-1.2); Total Iron Binding Capacity 185 mcg/dl; Total Protein 6.9 g/dL (6.6-8.7); Unsaturated Iron Binding 80 ug/dL (112-347)
[2025-03-09 12:16] LABS: Vitamin B12 507 pg/mL (232-1245)
[2025-03-09 12:17] LABS: Folate Level 9.3 ng/mL (4.8-37.3)
[2025-03-28 11:26] LABS: Basophils % 0.5 %; Eosinophils # 0.3 10^3/uL (0.0-0.8); Eosinophils % 4.4 %; Hematocrit 37.6 % (36-47); Lymphocytes # 0.6 10^3/uL (0.8-4.8); Lymphocytes % 8.7 %; Mean Corpuscular HGB Conc 31.9 g/dL (30-55); Mean Corpuscular Hemoglobin 32.9 pg (27-33); Mean Platelet Volume 11.8 fL (7.4-10.4); Monocytes # 0.5 10^3/uL (0.2-0.9); Monocytes % 8.3 %; Neutrophils # 4.96 10^3/uL (1.8-7.7); Neutrophils % 77.3 %; Nucleated Red Blood Cells % 0 %; Platelet Count 147 10^3/cmm (157-399); Red Blood Count 3.65 10^6/uL (3.85-5.65); Red Cell Distribution Width 13.3 % (12.1-15.1); White Blood Count 6.41 10^3/uL (3.29-11.43)
[2025-03-28 11:45] LABS: INR 1.01 (0.8-1.2)
[2025-03-28 11:59] LABS: Tumor Marker Alpha Fetoprotein 6.8 ng/mL (0-8.3)
[2025-03-28 12:10] LABS: Alanine Aminotransferase 30 U/L (0-33); Albumin Level 3.4 g/dL (3.5-5.2); Alkaline Phosphatase 299 U/L (35-105); Anion Gap 13.6 (5-19); Aspartate Amino Transferase 34 U/L (0-32); Blood Urea Nitrogen 31 mg/dL (8-23); Calcium 9.2 mg/dL (8.5-10.5); Carbon Dioxide 24 mmol/L (22-29); Chloride 105 mmol/L (98-107); Creatinine Clr Calc Pharmacy 35.5583; Glucose 180 mg/dL (65-115); Osmolality Calculated 297 mOsm/kg (285-295); Potassium 4.6 mmol/L (3.5-5.1); Sodium 138 mmol/L (136-145); Total Bilirubin 0.5 mg/dL (0.15-1.2); Total Protein 6.4 g/dL (6.6-8.7)
== END 2025-03-29 23:59 | disposition home or self-care (01) ==
PROVIDERS: Radiology Diagnostic Radiology; PCP Family Medicine; Visit Provider Internal Medicine
DX: Z53.9 Procedure and treatment not carried out, unspecified reason (principal); C22.0 Liver cell carcinoma
CPT/HCPCS: 36415; 80053; 82105; 82607; 82728; 82746; 83010; 83540; 83550; 83615; 85025; 85045; 85610; 99213

== ENCOUNTER 2025-04-06 12:26 | Oncology outpatient (recurring) (ONCR) | payer MEDICARE, MEDICAID, SELFPAY ==
[2025-04-06 13:01] LABS: Basophils % 0.5 %; Eosinophils # 0.2 10^3/uL (0.0-0.8); Hematocrit 37.5 % (36-47); Lymphocytes # 0.5 10^3/uL (0.8-4.8); Lymphocytes % 8.8 %; Mean Corpuscular Hemoglobin 32.9 pg (27-33); Mean Corpuscular Volume 102.7 fl (85-98); Mean Platelet Volume 11.6 fL (7.4-10.4); Monocytes # 0.5 10^3/uL (0.2-0.9); Neutrophils # 4.71 10^3/uL (1.8-7.7); Nucleated Red Blood Cells % 0 %; Platelet Count 151 10^3/cmm (157-399); Red Blood Count 3.65 10^6/uL (3.85-5.65); Red Cell Distribution Width 13.2 % (12.1-15.1); White Blood Count 6.03 10^3/uL (3.29-11.43)
[2025-04-06 13:21] LABS: Alanine Aminotransferase 27 U/L (0-33); Albumin Level 3.6 g/dL (3.5-5.2); Alkaline Phosphatase 259 U/L (35-105); Anion Gap 16.7 (5-19); Aspartate Amino Transferase 32 U/L (0-32); Blood Urea Nitrogen 27 mg/dL (8-23); Calcium 9.1 mg/dL (8.5-10.5); Carbon Dioxide 21 mmol/L (22-29); Chloride 108 mmol/L (98-107); Creatinine Clr Calc Pharmacy 43.2912; Ferritin 298 ng/mL (15-150); Globulin 2.8 g/dL (1.3-4.6); Glucose 221 mg/dL (65-115); Iron 124 ug/dL (37-145); Lactate Dehydrogenase 170 U/L (135-214); Osmolality Calculated 304 mOsm/kg (285-295); Percent Saturation 73.3 % (20-50); Potassium 4.7 mmol/L (3.5-5.1); Sodium 141 mmol/L (136-145); Total Bilirubin 0.5 mg/dL (0.15-1.2); Total Iron Binding Capacity 169 mcg/dl; Total Protein 6.4 g/dL (6.6-8.7); Unsaturated Iron Binding 45 ug/dL (112-347)
[2025-04-06 13:36] LABS: Vitamin B12 476 pg/mL (232-1245)
[2025-04-06 13:53] LABS: Folate Level 8.3 ng/mL (4.8-37.3)
[2025-04-06 14:18] LABS: Tumor Marker Alpha Fetoprotein 6.4 ng/mL (0-8.3)
== END 2025-04-29 23:59 | disposition home or self-care (01) ==
PROVIDERS: PCP Family Medicine; Visit Provider Internal Medicine
DX: C22.0 Liver cell carcinoma (principal); E83.110 Hereditary hemochromatosis; E11.9 Type 2 diabetes mellitus without complications; Z79.4 Long term (current) use of insulin; R16.0 Hepatomegaly, not elsewhere classified
CPT/HCPCS: 36415; 80053; 82105; 82607; 82728; 82746; 83010; 83540; 83550; 83615; 85025; 85045; 99214

== ENCOUNTER 2025-05-25 14:13 | Oncology outpatient (recurring) (ONCR) | payer OTHER, MEDICAID, SELFPAY | END 2025-05-29 23:59 | disposition home or self-care (01) | LOC: ONCMED 14:14 | PROVIDERS: PCP Family Medicine; Visit Provider Internal Medicine | DX: C22.0 Liver cell carcinoma (principal); E83.110 Hereditary hemochromatosis; Z92.3 Personal history of irradiation; Z79.899 Other long term (current) drug therapy | CPT/HCPCS: 99214 ==

== ENCOUNTER → 2025-06-05 11:45 | Outpatient (BNVA) | payer OTHER, MEDICAID, SELFPAY | PROVIDERS: PCP Family Medicine; Visit Provider Family Medicine | DX: E11.9 Type 2 diabetes mellitus without complications (principal); Z79.4 Long term (current) use of insulin | CPT/HCPCS: 83036 ==

== ENCOUNTER → 2025-07-06 11:36 | Outpatient (BNVA) | payer OTHER, MEDICAID, SELFPAY | PROVIDERS: PCP Family Medicine; Visit Provider Nurse Practitioner Family | DX: S50.912A Unspecified superficial injury of left forearm, initial encounter (principal); X58.XXXA Exposure to other specified factors, initial encounter; L85.3 Xerosis cutis; L57.8 Other skin changes due to chronic exposure to nonionizing radiation; X32.XXXA Exposure to sunlight, initial encounter; L81.4 Other melanin hyperpigmentation; L82.1 Other seborrheic keratosis | CPT/HCPCS: 99213 ==

== ENCOUNTER 2025-08-24 12:50 | Oncology outpatient (recurring) (ONCR) | payer OTHER, MEDICAID, SELFPAY ==
[2025-08-24 13:24] LABS: Hematocrit 40.0 % (36-47); Hemoglobin 12.90 g/dL (11.27-16.99); Mean Corpuscular HGB Conc 32.3 g/dL (30-55); Mean Corpuscular Hemoglobin 32.1 pg (27-33); Mean Corpuscular Volume 99.5 fl (85-98); Nucleated Red Blood Cells % 0 %; Platelet Count 111 10^3/cmm (157-399); Red Blood Count 4.02 10^6/uL (3.85-5.65); White Blood Count 5.90 10^3/uL (3.29-11.43)
[2025-08-24 13:50] LABS: Alanine Aminotransferase 20 U/L (0-33); Albumin Level 3.7 g/dL (3.5-5.2); Alkaline Phosphatase 144 U/L (35-105); Anion Gap 15.0 (5-19); Aspartate Amino Transferase 24 U/L (0-32); Blood Urea Nitrogen 36 mg/dL (8-23); Calcium 9.0 mg/dL (8.5-10.5); Carbon Dioxide 23 mmol/L (22-29); Chloride 106 mmol/L (98-107); Creatinine Clr Calc Pharmacy 33.7787; Ferritin 206 ng/mL (15-150); Globulin 2.7 g/dL (1.3-4.6); Glucose 237 mg/dL (65-115); Osmolality Calculated 304 mOsm/kg (285-295); Potassium 5.0 mmol/L (3.5-5.1); Sodium 139 mmol/L (136-145); Total Protein 6.4 g/dL (6.6-8.7)
== END 2025-08-29 23:59 | disposition home or self-care (01) ==
PROVIDERS: PCP Family Medicine; Visit Provider Internal Medicine
DX: E83.110 Hereditary hemochromatosis (principal); C22.0 Liver cell carcinoma; R00.1 Bradycardia, unspecified
CPT/HCPCS: 36415; 80053; 82728; 85025; 99195; 99214

== ENCOUNTER → 2025-09-08 11:10 | Outpatient (BNVA) | payer OTHER, MEDICAID, SELFPAY | PROVIDERS: PCP Family Medicine; Visit Provider Family Medicine | DX: R39.9 Unspecified symptoms and signs involving the genitourinary system (principal) | CPT/HCPCS: 81000 ==

== ENCOUNTER 2025-09-14 12:59 | Oncology outpatient (recurring) (ONCR) | payer OTHER, MEDICAID, SELFPAY ==
[2025-09-14 13:22] LABS: Hematocrit 38.2 % (36-47); Hemoglobin 12.00 g/dL (11.27-16.99); Mean Corpuscular HGB Conc 31.4 g/dL (30-55); Mean Corpuscular Hemoglobin 32.0 pg (27-33); Mean Corpuscular Volume 101.9 fl (85-98); Nucleated Red Blood Cells % 0 %; Platelet Count 111 10^3/cmm (157-399); Red Blood Count 3.75 10^6/uL (3.85-5.65); White Blood Count 5.66 10^3/uL (3.29-11.43)
[2025-09-14 13:48] LABS: Ferritin 186 ng/mL (15-150)
[2025-09-14 15:16] VITALS: BP 125/58
== END 2025-09-29 23:59 | disposition home or self-care (01) ==
PROVIDERS: PCP Family Medicine; Visit Provider Internal Medicine
DX: C22.0 Liver cell carcinoma (principal); R16.0 Hepatomegaly, not elsewhere classified; E83.110 Hereditary hemochromatosis
CPT/HCPCS: 36415; 82728; 85025; 99195; 99214

== ENCOUNTER 2025-10-05 11:53 | Oncology outpatient (recurring) (ONCR) | payer MEDICARE, MEDICAID, SELFPAY ==
[2025-10-05 12:28] LABS: Hematocrit 35.1 % (36-47); Hemoglobin 11.00 g/dL (11.27-16.99); Mean Corpuscular HGB Conc 31.3 g/dL (30-55); Mean Corpuscular Hemoglobin 32.4 pg (27-33); Mean Corpuscular Volume 103.2 fl (85-98); Nucleated Red Blood Cells % 0 %; Platelet Count 125 10^3/cmm (157-399); Red Blood Count 3.40 10^6/uL (3.85-5.65); White Blood Count 6.85 10^3/uL (3.29-11.43)
[2025-10-05 13:26] LABS: Alanine Aminotransferase 19 U/L (0-33); Albumin Level 3.8 g/dL (3.5-5.2); Alkaline Phosphatase 137 U/L (35-105); Anion Gap 15.3 (5-19); Aspartate Amino Transferase 25 U/L (0-32); Blood Urea Nitrogen 26 mg/dL (8-23); Calcium 9.2 mg/dL (8.5-10.5); Carbon Dioxide 21 mmol/L (22-29); Chloride 108 mmol/L (98-107); Globulin 2.5 g/dL (1.3-4.6); Glucose 119 mg/dL (65-115); Osmolality Calculated 296 mOsm/kg (285-295); Potassium 4.3 mmol/L (3.5-5.1); Sodium 140 mmol/L (136-145); Total Protein 6.3 g/dL (6.6-8.7)
[2025-10-05 13:41] LABS: Ferritin 104 ng/mL (15-150); Iron 107 ug/dL (37-145); Total Iron Binding Capacity 195 mcg/dl; Unsaturated Iron Binding 88 ug/dL (112-347)
== END 2025-10-29 23:59 | disposition home or self-care (01) ==
PROVIDERS: PCP Family Medicine; Visit Provider Nurse Practitioner
DX: C22.0 Liver cell carcinoma (principal); E83.110 Hereditary hemochromatosis; R00.1 Bradycardia, unspecified
CPT/HCPCS: 36415; 80053; 82728; 83540; 83550; 85025; 99213

== ENCOUNTER 2025-11-02 12:27 | Oncology outpatient (recurring) (ONCR) | payer MEDICARE, MEDICAID, SELFPAY ==
[2025-11-02 12:47] LABS: Hematocrit 40.1 % (36-47); Hemoglobin 13.30 g/dL (11.27-16.99); Mean Corpuscular HGB Conc 33.2 g/dL (30-55); Mean Corpuscular Hemoglobin 33.1 pg (27-33); Mean Corpuscular Volume 99.8 fl (85-98); Nucleated Red Blood Cells % 0 %; Platelet Count 145 10^3/cmm (157-399); Red Blood Count 4.02 10^6/uL (3.85-5.65); White Blood Count 6.90 10^3/uL (3.29-11.43)
[2025-11-02 13:07] LABS: Alanine Aminotransferase 16 U/L (0-33); Albumin Level 3.8 g/dL (3.5-5.2); Alkaline Phosphatase 148 U/L (35-105); Anion Gap 17.3 (5-19); Aspartate Amino Transferase 24 U/L (0-32); Blood Urea Nitrogen 23 mg/dL (8-23); Calcium 9.4 mg/dL (8.5-10.5); Carbon Dioxide 23 mmol/L (22-29); Chloride 103 mmol/L (98-107); Globulin 2.9 g/dL (1.3-4.6); Glucose 163 mg/dL (65-115); Osmolality Calculated 295 mOsm/kg (285-295); Potassium 4.3 mmol/L (3.5-5.1); Sodium 139 mmol/L (136-145); Total Protein 6.7 g/dL (6.6-8.7)
[2025-11-02 15:14] LABS: Ferritin 95 ng/mL (15-150)
[2025-11-02 15:39] LABS: Iron 137 ug/dL (37-145); Total Iron Binding Capacity 195 mcg/dl; Unsaturated Iron Binding 58 ug/dL (112-347)
== END 2025-11-29 23:59 | disposition home or self-care (01) ==
PROVIDERS: PCP Family Medicine; Visit Provider Nurse Practitioner
DX: Z53.9 Procedure and treatment not carried out, unspecified reason; C22.0 Liver cell carcinoma; E83.110 Hereditary hemochromatosis
CPT/HCPCS: 36415; 80053; 82728; 83540; 83550; 85025; 99213